=== PATIENT | female | born 1970 | race Caucasian/White ===

== ENCOUNTER 2018-11-06 08:33 | Emergency (ER) | payer BC ==
[~2018-11-06] VITALS: Ht 160 cm; Wt 98.0 kg
[~2018-11-06 08:33] MED LIST: AMIT25TA PO; ASPI-612 PO; ATOR20TA58 PO; BUTA1CAP31 PO; CYCL10TA2 PO; DIPH25CA58 PO; FAMO-63 PO; LEVO50TA5 PO; LEVO75TA5 PO; METO50TA6 PO; NAPR-514 PO; NAPR500T8 PO; ONDA4TAB10 SL; RANI-348 PO
--- NOTE | 2018-11-06 08:51 | PHYS DOC ---
Past Medical History Past Medical History: Gallstones, High Cholesterol, Hypertension, Migraines, Ovarian Cyst, TIA Past Surgical History: Cholecystectomy, Hysterectomy Additional Past Surgical Histo: right knee Alcohol Use: Occasionally Drug Use: None Adult General Chief Complaint Chief Complaint: NEURO SYMPTOMS/DEFICITS HPI HPI Patient is a 47 year old female who presents with complaining of dizziness and right hand heaviness. Patient states she bends over to strip picker an object from the floor while she was up work at 7:30 and felt dizziness that improved but she developed heaviness of right upper and lower extremity and not having right in right side of her face with headache. Patient rated her headache 6/10. Patient denies weakness, chest pain, shortness of breath, vomiting and diarrhea. Patient complaining of nausea and change of vision. Patient states she had history of TIA with weakness of one side of her body and currently taking 1 mg of aspirin daily. Patient also complaining of history of migraine headache but states her headache is not as bad as her usual migraine headache. Review of Systems Review of Systems Constitutional: Denies fever or chills [] Eyes: Denies change in visual acuity, redness, or eye pain [] HENT: Denies nasal congestion or sore throat [] Respiratory: Denies cough or shortness of breath [] Cardiovascular: No additional information not addressed in HPI [] GI: Denies abdominal pain, nausea, vomiting, bloody stools or diarrhea [] : Denies dysuria or hematuria [] Musculoskeletal: Denies back pain or joint pain [] Integument: Denies rash or skin lesions [] Neurologic: Reports headache and heaviness of right upper and lower extremity Endocrine: Denies polyuria or polydipsia [] All other systems were reviewed and found to be within normal limits, except as documented in this note. Current Medications Current Medications Current Medications Medications (Trade) Dose Ordered Sig/Albert Start Time Stop Time Status Last Admin Dose Admin Ketorolac Tromethamine (Toradol 30mg Vial) 30 mg 1X ONCE 11/06/18 09:15 11/06/18 09:16 DC 11/06/18 09:30 30 MG Ondansetron HCl (Zofran) 4 mg 1X ONCE 11/06/18 09:15 11/06/18 09:16 DC 11/06/18 09:30 4 MG Allergies Allergies Allergies Coded Allergies Type Severity Reaction Last Updated Verified acetaminophen Adverse Reaction Mild Nausea and Vomiting 11/06/18 Yes hydrocodone Adverse Reaction Mild Nausea and Vomiting 11/06/18 Yes meperidine Adverse Reaction Mild Anxiety 06/02/18 Yes Physical Exam Physical Exam Constitutional: Well developed, well nourished, no acute distress, non-toxic appearance. [] HENT: Normocephalic, atraumatic, bilateral external ears normal, oropharynx moist, no oral exudates, nose normal. [] Eyes: PERRLA, EOMI, conjunctiva normal, no discharge. [] Neck: Normal range of motion, no tenderness, supple, no stridor. [] Cardiovascular:Heart rate regular rhythm, no murmur [] Lungs & Thorax: Bilateral breath sounds clear to auscultation [] Abdomen: Bowel sounds normal, soft, no tenderness, no masses, no pulsatile masses. [] Skin: Warm, dry, no erythema, no rash. [] Back: No tenderness, no CVA tenderness. [] Extremities: No tenderness, no cyanosis, no clubbing, ROM intact, no edema. [] Neurologic: Alert and oriented X 3, normal motor function, subjective decrease of sensation in right upper and lower extremity , no focal deficits noted, NIHS scale of 1. [] Psychologic: Affect normal, judgement normal, mood normal. [] Current Patient Data Vital Signs Vital Signs Date Time Temp Pulse Resp B/P (MAP) Pulse Ox O2 Delivery O2 Flow Rate FiO2 11/06/18 09:07 98.0 56 18 186/79 (114) 99 Room Air 98.0 Lab Values Laboratory Tests Test 11/06/18 08:46 11/06/18 08:51 11/06/18 09:35 Glucose (Fingerstick) 95 mg/dL (70-99) White Blood Count 7.7 x10^3/uL (4.0-11.0) Red Blood Count 4.57 x10^6/uL (3.50-5.40) Hemoglobin 12.1 g/dL (12.0-15.5) Hematocrit 37.4 % (36.0-47.0) Mean Corpuscular Volume 82 fL (79-100) Mean Corpuscular Hemoglobin 27 pg (25-35) Mean Corpuscular Hemoglobin Concent 32 g/dL (31-37) Red Cell Distribution Width 14.2 % (11.5-14.5) Platelet Count 303 x10^3/uL (140-400) Neutrophils (%) (Auto) 57 % (31-73) Lymphocytes (%) (Auto) 33 % (24-48) Monocytes (%) (Auto) 6 % (0-9) Eosinophils (%) (Auto) 4 % (0-3) H Basophils (%) (Auto) 1 % (0-3) Neutrophils # (Auto) 4.4 x10^3uL (1.8-7.7) Lymphocytes # (Auto) 2.5 x10^3/uL (1.0-4.8) Monocytes # (Auto) 0.5 x10^3/uL (0.0-1.1) Eosinophils # (Auto) 0.3 x10^3/uL (0.0-0.7) Basophils # (Auto) 0.1 x10^3/uL (0.0-0.2) Prothrombin Time 12.4 SEC (11.7-14.0) Prothrombin Time INR 1.0 (0.8-1.1) Sodium Level 140 mmol/L (136-145) Potassium Level 3.8 mmol/L (3.5-5.1) Chloride Level 103 mmol/L (98-107) Carbon Dioxide Level 30 mmol/L (21-32) Anion Gap 7 (6-14) Blood Urea Nitrogen 10 mg/dL (7-20) Creatinine 0.9 mg/dL (0.6-1.0) Estimated GFR (Cockcroft-Gault) 67.4 BUN/Creatinine Ratio 11 (6-20) Glucose Level 103 mg/dL (70-99) H Calcium Level 9.6 mg/dL (8.5-10.1) Magnesium Level 1.8 mg/dL (1.8-2.4) Total Bilirubin 0.3 mg/dL (0.2-1.0) Aspartate Amino Transferase (AST) 21 U/L (15-37) Alanine Aminotransferase (ALT) 28 U/L (14-59) Alkaline Phosphatase 72 U/L (46-116) Creatine Kinase 191 U/L (26-192) Total Protein 7.8 g/dL (6.4-8.2) Albumin 3.7 g/dL (3.4-5.0) Albumin/Globulin Ratio 0.9 (1.0-1.7) L Urine Collection Type Unknown Urine Color Yellow Urine Clarity Clear Urine pH 5.5 Urine Specific [place] 1.020 Urine Protein Negative mg/dL (NEG-TRACE) Urine Glucose (UA) Negative mg/dL (NEG) Urine Ketones (Stick) Negative mg/dL (NEG) Urine Blood Small (NEG) Urine Nitrite Negative (NEG) Urine Bilirubin Negative (NEG) Urine Urobilinogen Dipstick 0.2 mg/dL (0.2 mg/dL) Urine Leukocyte Esterase Negative (NEG) Urine RBC 1-2 /HPF (0-2) Urine WBC 1-4 /HPF (0-4) Urine Squamous Epithelial Cells Mod /LPF Urine Bacteria Few /HPF (0-FEW) Urine Mucus Slight /LPF Laboratory Tests 11/06/18 08:51 Laboratory Tests 11/06/18 08:51 EKG EKG EKG interpreted by me. EKG at 0846 showed normal sinus bradycardia at rate of 58, poor R-wave progress in anterior leads, no acute ST and T-wave abnormalities. Radiology/Procedures Radiology/Procedures [][address] [address] IMAGING REPORT Signed PATIENT: LUIS BOSS ACCOUNT: [id number] : 1970 LOCATION: ER AGE: 47 SEX: F EXAM STATUS: REG ER ORD. PHYSICIAN: BETH MOTA MD REASON: right sided heaviness, WEAKNESS, CONFUSION PROCEDURE: PORTABLE CHEST 1V PORTABLE CHEST 1V History: Right-sided heaviness, weakness, confusion Comparison: None. Findings: Single view of the chest is submitted. There is no infiltrate, pneumothorax, or effusion. The pericardial cardiac silhouette is within normal limits in size. Impression: 1. There is no radiographic evidence of acute cardiopulmonary disease. Electronically signed by: Tyrone Cohn MD (11/06/2018 9:03 AM) [email or web address] DICTATED and SIGNED BY: TYRONE COHN MD DATE: 11/06/[address] [address] IMAGING REPORT Signed PATIENT: LUIS BOSS ACCOUNT: [id number] : 1970 LOCATION: ER AGE: 47 SEX: F EXAM STATUS: REG ER ORD. PHYSICIAN: BETH MOTA MD REASON: right-sided heaviness PROCEDURE: CT CODE STROKE HEAD WO CT CODE STROKE HEAD WO History: Right-sided heaviness Comparison: None. Technique: Noncontrast CT imaging was performed of the head. Exposure: One or more of the following individualized dose reduction techniques were utilized for this examination: 1. Automated exposure control 2. Adjustment of the mA and/or kV according to patient size 3. Use of iterative reconstruction technique. Findings: No acute extra-axial or parenchymal hemorrhage is identified. There is no significant intra-axial mass effect, midline shift, or extra-axial fluid collection. The corral-white differentiation of the major vascular territories is preserved. The ventricles, sulci, and cisterns are within normal limits in size and configuration. The mastoid air cells and the visualized paranasal sinuses are aerated. No acute calvarial abnormality is identified. Impression: 1. No acute intracranial abnormality is identified. FOR INTERNAL CODING PURPOSES Critical result: Findings discussed with BETH MOTA at 11/06/2018 9:08 AM. RESULT CODE: (C) Electronically signed by: Tyrone Cohn MD (11/06/2018 9:10 AM) [email or web address] DICTATED and SIGNED BY: TYRONE COHN MD DATE: 11/06/18909 Course & Med Decision Making Course & Med Decision Making Pertinent Labs and Imaging studies reviewed. (See chart for details) Evaluation of patient also 47-year-old female patient with history of migraine headache and TIA presented to ER with complaining of right-sided heaviness. Patient had indigestion of 1 because of subjective paresthesia. Patient started with Toradol and Zofran with improvement of nausea and headache. Patient states her right side tenderness was getting better while she was in ER but did not completely resolve. CT head and labs was unremarkable. Plan discharge patient home to diagnose of TIA and instruction to continue taking daily aspirin and follow up with her neurologist Dr. Dwyer. Dragon Disclaimer Dragon Disclaimer This electronic medical record was generated, in whole or in part, using a voice recognition dictation system. Departure Departure Impression: Primary Impression: TIA (transient ischemic attack) Additional Impression: Headache Disposition: HOME, SELF-CARE (1006) Condition: IMPROVED Referrals: HEIDY LAMA (PCP) AVERY MOTA MD Patient Instructions: General Headache Without Cause, Transient Ischemic Attack Additional Instructions: Drink plenty of liquids Follow-up with your primary care physician in 3-5 days Return to ER if not getting better Follow up with your neurologist in one or 2 days NIHSS Stroke Scale NIH Stroke Scale: NIH Stroke Scale Response (Comments) Value Level of Consciousness: 0 Alert/Responsive 0 LOC Questions: 0 Answers both correctly 0 LOC Commands: 0 Performs both tasks 0 Best Gaze: 0 Normal 0 Visual: 0 No visual loss 0 Facial Palsy: 0 Normal, symmetrical 0 Motor - Left Arm 0 No drift 0 Motor - Right Arm 0 No drift 0 Motor - Left Leg 0 No drift 0 Motor: Right Leg 0 No drift 0 Limb Ataxia: 0 Absent 0 Sensory: 1 Mid to moderate loss 1 Best Language: 0 Normal 0 Dysathria: 0 Normal 0 Extinction and Inattention: 0 Normal 0 Total 1 Problem Qualifiers Additional Impression: Headache Headache type: unspecified Headache chronicity pattern: unspecified pattern Intractability: not intractable Qualified Codes: R51 - Headache BETH MOTA MD November 06, 2018 08:51
[2018-11-06 09:03] LABS: BASO # 0.1 x10^3/uL (0.0-0.2); BASO % 1 % (0-3); EOS # 0.3 x10^3/uL (0.0-0.7); EOS % 4 % (0-3); HEMATOCRIT 37.4 % (36.0-47.0); HEMOGLOBIN 12.1 g/dL (12.0-15.5); LYMPH # 2.5 x10^3/uL (1.0-4.8); LYMPH % 33 % (24-48); MEAN CORPUSCULAR HEMOGLOBIN 27 pg (25-35); MEAN CORPUSCULAR HGB CONC 32 g/dL (31-37); MEAN CORPUSCULAR VOLUME 82 fL (79-100); MONO # 0.5 x10^3/uL (0.0-1.1); MONO % 6 % (0-9); NEUT # 4.4 x10^3uL (1.8-7.7); NEUT % 57 % (31-73); PLATELET COUNT 303 x10^3/uL (140-400); RED BLOOD COUNT 4.57 x10^6/uL (3.50-5.40); RED CELL DISTRIBUTION WIDTH 14.2 % (11.5-14.5); WHITE BLOOD COUNT 7.7 x10^3/uL (4.0-11.0)
--- NOTE | 2018-11-06 09:06 | RAD ---
PORTABLE CHEST 1V History: Right-sided heaviness, weakness, confusion Comparison: None. Findings: Single view of the chest is submitted. There is no infiltrate, pneumothorax, or effusion. The pericardial cardiac silhouette is within normal limits in size. Impression: 1. There is no radiographic evidence of acute cardiopulmonary disease. Electronically signed by: Elpidio Cohn MD (11/06/2018 9:03 AM) [email or web address]
[2018-11-06 09:09] LABS: CALCIUM 9.6 mg/dL (8.5-10.1); CREATININE 0.9 mg/dL (0.6-1.0); GFR 67.4; POTASSIUM 3.8 mmol/L (3.5-5.1)
[2018-11-06 09:11] LABS: PROTHROMBIN TIME PATIENT 12.4 SEC (11.7-14.0)
--- NOTE | 2018-11-06 09:12 | RAD ---
CT CODE STROKE HEAD WO History: Right-sided heaviness Comparison: None. Technique: Noncontrast CT imaging was performed of the head. Exposure: One or more of the following individualized dose reduction techniques were utilized for this examination: 1. Automated exposure control 2. Adjustment of the mA and/or kV according to patient size 3. Use of iterative reconstruction technique. Findings: No acute extra-axial or parenchymal hemorrhage is identified. There is no significant intra-axial mass effect, midline shift, or extra-axial fluid collection. The corral-white differentiation of the major vascular territories is preserved. The ventricles, sulci, and cisterns are within normal limits in size and configuration. The mastoid air cells and the visualized paranasal sinuses are aerated. No acute calvarial abnormality is identified. Impression: 1. No acute intracranial abnormality is identified. FOR INTERNAL CODING PURPOSES Critical result: Findings discussed with BETH MOTA at 11/06/2018 9:08 AM. RESULT CODE: (C) Electronically signed by: Elpidio Cohn MD (11/06/2018 9:10 AM) [email or web address]
[2018-11-06 09:15] LABS: ALBUMIN 3.7 g/dL (3.4-5.0); ALBUMIN/GLOBULIN RATIO 0.9 (1.0-1.7); MAGNESIUM 1.8 mg/dL (1.8-2.4); TOTAL BILIRUBIN 0.3 mg/dL (0.2-1.0); TOTAL PROTEIN 7.8 g/dL (6.4-8.2)
[2018-11-06] MEDS ORDERED: KETOROLAC 30 MG/ML VIAL. IV ONE (09:15)
[2018-11-06] MEDS ORDERED: ONDANSETRON PF 4 MG/2 ML VIAL. IV ONE (09:15)
[2018-11-06 09:55] LABS: BILIRUBIN,URINE NEGATIVE (NEG); CLARITY,URINE CLEAR; COLOR,URINE YELLOW; NITRITE,URINE NEGATIVE (NEG); PH,URINE 5.5; PROTEIN,URINE NEGATIVE (NEG-TRACE); UROBILINOGEN,URINE 0.2 mg/dL (0.2 mg/dL)
[2018-11-06 10:10] LABS: BACTERIA,URINE FEW /HPF (0-FEW); SQUAMOUS EPITHELIAL CELL,UR MOD /LPF
[2018-11-06 10:30] VITALS: BP 126/72
--- NOTE | 2018-11-06 13:22 | EKG ---
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
== END 2018-11-06 10:32 | disposition home or self-care (01) ==
LOC: ER 08:33
DX: G45.9 Transient cerebral ischemic attack, unspecified (principal); E78.00 Pure hypercholesterolemia, unspecified; I10 Essential (primary) hypertension; G43.909 Migraine, unspecified, not intractable, without status migrainosus; Z86.73 Personal history of transient ischemic attack (TIA), and cerebral infarction without residual deficits; Z88.5 Allergy status to narcotic agent; Z88.6 Allergy status to analgesic agent; Z88.8 Allergy status to other drugs, medicaments and biological substances
CPT/HCPCS: 36415; 70450; 71045; 80053; 81001; 82550; 82962; 83735; 85025; 85610; 93005; 96374; 96375; 99285; J1885; J2405

== ENCOUNTER 2020-02-26 23:42 | Emergency (ER) | payer BC ==
[~2020-02-26 23:42] MED LIST changes: -ASPI-612 PO; +ASPI-886 PO; -RANI-348 PO; +RANI-369 PO
== END 2020-02-27 04:00 | disposition left against medical advice (07) ==
LOC: ER 23:42
DX: G43.909 Migraine, unspecified, not intractable, without status migrainosus (principal); Z53.21 Procedure and treatment not carried out due to patient leaving prior to being seen by health care provider

== ENCOUNTER 2020-03-17 17:56 | Emergency (ER) | payer BC ==
[~2020-03-17] VITALS: Ht 160 cm; Wt 105.2 kg
[2020-03-17] MEDS ORDERED: cefTRIAXone IV Push 1 GM VIAL. IVP ONE (20:15)
[2020-03-17] MEDS ORDERED: methylPREDNISolone SOD SUCC PF 125 MG/2 ML VIAL. IV ONE (20:15)
[2020-03-17] MEDS ORDERED: [UNRECOGNIZED DRUG - OTHER] IV ONE (20:15)
[2020-03-17] MEDS ORDERED: AZITHROMYCIN IV ONE (20:15)
[2020-03-17 20:37] LABS: BASO % 0 % (0-3); EOS % 0 % (0-3); HEMOGLOBIN 12.6 g/dL (12.0-15.5); LYMPH # 1.4 x10^3/uL (1.0-4.8); LYMPH % 19 % (24-48); MEAN CORPUSCULAR HEMOGLOBIN 27 pg (25-35); MEAN CORPUSCULAR HGB CONC 33 g/dL (31-37); MEAN CORPUSCULAR VOLUME 82 fL (79-100); MONO # 0.5 x10^3/uL (0.0-1.1); MONO % 7 % (0-9); NEUT # 5.5 x10^3/uL (1.8-7.7); NEUT % 74 % (31-73); PLATELET COUNT 212 x10^3/uL (140-400); RED BLOOD COUNT 4.66 x10^6/uL (3.50-5.40); RED CELL DISTRIBUTION WIDTH 14.8 % (11.5-14.5); WHITE BLOOD COUNT 7.4 x10^3/uL (4.0-11.0)
[2020-03-17] MEDS ORDERED: AZITHRMYCN 500MG IVPB FOR OMNI 250 ML IV ONE (20:45)
[2020-03-17 20:46] LABS: PROTHROMBIN TIME PATIENT 12.8 SEC (11.7-14.0)
[2020-03-17 20:49] LABS: CALCIUM 8.7 mg/dL (8.5-10.1); CREATININE 0.7 mg/dL (0.6-1.0); GFR 89.3; POTASSIUM 3.7 mmol/L (3.5-5.1)
[2020-03-17 20:54] LABS: ALBUMIN 3.3 g/dL (3.4-5.0); ALBUMIN/GLOBULIN RATIO 0.6 (1.0-1.7); MAGNESIUM 2.3 mg/dL (1.8-2.4); TOTAL BILIRUBIN 0.6 mg/dL (0.2-1.0); TOTAL PROTEIN 8.4 g/dL (6.4-8.2)
[2020-03-17 21:04] LABS: CREATINE KINASE 56 U/L (26-192)
[2020-03-17] MEDS: MORPHINE SULFATE 4 MG/ML VIAL. IV/SQ PRN ×3 (21:11→23:07)
--- NOTE | 2020-03-17 21:21 | RAD ---
PORTABLE CHEST 1V Clinical Indication: Reason: cough / Spl. Instructions: / History: Comparison: AP chest, November 06, 2018. Findings: The cardiomediastinal silhouette is normal. There are bilateral perihilar airspace opacities. There is no pneumothorax. No pleural effusion is appreciated. No acute bone abnormality. IMPRESSION: Bilateral perihilar airspace opacities may be infectious/inflammatory. Electronically signed by: Eyal Lanier MD (03/17/2020 9:18 PM) [facility]
[2020-03-17 21:58] LABS: BILIRUBIN,URINE NEGATIVE (NEG); CLARITY,URINE CLEAR; COLOR,URINE YELLOW; NITRITE,URINE NEGATIVE (NEG); PH,URINE 6.5 (<5.0-8.0); PROTEIN,URINE NEGATIVE (NEG-TRACE); UROBILINOGEN,URINE 0.2 mg/dL (0.2 mg/dL)
[2020-03-17] MEDS ORDERED: guaiFENesin/CODEINE 100mg/10mg 5 ML LIQUID PO ONE (22:00)
[2020-03-17 22:06] LABS: AMPHETAMINE/METHAMPHETAMINE NEG (NEG); BARBITURATES NEG (NEG); BENZODIAZEPINES NEG (NEG); CANNABINOIDS NEG (NEG); COCAINE NEG (NEG); METHADONE NEG (NEG); OPIATES NEG (NEG); PHENCYCLIDINE NEG (NEG)
--- NOTE | 2020-03-17 22:06 | PHYS DOC ---
Past Medical History Past Medical History: Gallstones, High Cholesterol, Hypertension, Migraines, Ovarian Cyst, TIA Past Surgical History: Cholecystectomy, , Hysterectomy Additional Past Surgical Histo: right knee, OOPHORECTOMY Smoking Status: Never Smoker Alcohol Use: Occasionally Drug Use: None General Adult EDM: Chief Complaint: SHORTNESS OF BREATH HPI: HPI: Patient is a 49 year old female with a history of high cholesterol, hypertension, who presents to the ED today to be evaluated for cough and shortness of breath. Patient was diagnosed with COVID19 on Tuesday last week. Has had COVID19 symptoms including cough, chest pain, shortness of breath, since last week. She states she had a fever too. Review of Systems: Review of Systems: Constitutional: Reports fever Eyes: Denies change in visual acuity. [] HENT: Denies nasal congestion or sore throat. [] Respiratory: Reports cough and shortness of breath. [] Cardiovascular: Reports chest pain GI: Denies abdominal pain, nausea, vomiting, bloody stools or diarrhea. [] : Denies dysuria. [] Musculoskeletal: Denies back pain or joint pain. [] Integument: Denies rash. [] Neurologic: Denies headache, focal weakness or sensory changes. [] Psychiatric: Denies depression or anxiety. [] Heart Score: HEART Score for Chest Pain: HEART Score for Chest Pain Response (Comments) Value History Slighlty/Non-Suspicious 0 ECG Normal 0 Age >45 - < 65 1 Risk Factors 1 or 2 Risk Factors 1 Troponin < Normal Limit 0 Total 2 Risk Factors: Risk Factors: DM, Current or recent (<one month) smoker, HTN, HLP, family history of CAD, obesity. Risk Scores: Score 0 - 3: 2.5% MACE over next 6 weeks - Discharge Home Score 4 - 6: 20.3% MACE over next 6 weeks - Admit for Clinical Observation Score 7 - 10: 72.7% MACE over next 6 weeks - Early Invasive Strategies Current Medications: Current Medications Medications (Trade) Dose Ordered Sig/Albert Start Time Stop Time Status Last Admin Dose Admin Azithromycin 250 ml @ 250 mls/hr 1X ONCE 03/17/20 20:45 03/17/20 21:44 DC 03/17/20 21:31 250 MLS/HR Azithromycin 500 mg/Azithromycin 250 ml @ 250 mls/hr 1X ONCE 03/17/20 20:15 03/17/20 21:14 Cancel Ceftriaxone Sodium (Rocephin) 1 gm 1X ONCE 03/17/20 20:15 03/17/20 20:32 DC 03/17/20 21:30 1 GM Guaifenesin/ Codeine Phosphate (Robitussin Ac) 5 ml 1X ONCE 03/17/20 22:00 03/17/20 22:01 DC Methylprednisolone Sodium Succinate (SOLU-Medrol 125MG VIAL) 125 mg 1X ONCE 03/17/20 20:15 03/17/20 20:32 DC 03/17/20 21:11 125 MG Morphine Sulfate (Morphine Sulfate) 4 mg PRN Q15MIN PRN 03/17/20 20:15 03/18/20 20:14 03/17/20 21:55 4 MG Allergies: Allergies: Allergies Coded Allergies Type Severity Reaction Last Updated Verified acetaminophen Adverse Reaction Mild Nausea and Vomiting 11/06/18 Yes hydrocodone Adverse Reaction Mild Nausea and Vomiting 11/06/18 Yes meperidine Adverse Reaction Mild Anxiety 06/02/18 Yes Physical Exam: PE: Constitutional: Well developed, well nourished, no acute distress, non-toxic appearance. [] HENT: Normocephalic, atraumatic, bilateral external ears normal, oropharynx moist, no oral exudates, nose normal. [] Eyes: PERRLA, EOMI, conjunctiva normal, no discharge. [] Neck: Normal range of motion, no tenderness, supple, no stridor. [] Cardiovascular:Heart rate regular rhythm, no murmur [] Lungs & Thorax: Bilateral breath sounds clear to auscultation [] Abdomen: Bowel sounds normal, soft, no tenderness, no masses, no pulsatile mass es. [] Skin: Warm, dry, no erythema, no rash. [] Back: No tenderness, no CVA tenderness. [] Extremities: No tenderness, no cyanosis, no clubbing, ROM intact, no edema. [] Neurologic: Alert and oriented X 3, normal motor function, normal sensory function, no focal deficits noted. [] Psychologic: Affect normal, judgement normal, mood normal. [] Current Patient Data: Labs: Laboratory Tests Test 03/17/20 20:15 White Blood Count 7.4 x10^3/uL (4.0-11.0) Red Blood Count 4.66 x10^6/uL (3.50-5.40) Hemoglobin 12.6 g/dL (12.0-15.5) Hematocrit 38.0 % (36.0-47.0) Mean Corpuscular Volume 82 fL (79-100) Mean Corpuscular Hemoglobin 27 pg (25-35) Mean Corpuscular Hemoglobin Concent 33 g/dL (31-37) Red Cell Distribution Width 14.8 % (11.5-14.5) H Platelet Count 212 x10^3/uL (140-400) Neutrophils (%) (Auto) 74 % (31-73) H Lymphocytes (%) (Auto) 19 % (24-48) L Monocytes (%) (Auto) 7 % (0-9) Eosinophils (%) (Auto) 0 % (0-3) Basophils (%) (Auto) 0 % (0-3) Neutrophils # (Auto) 5.5 x10^3/uL (1.8-7.7) Lymphocytes # (Auto) 1.4 x10^3/uL (1.0-4.8) Monocytes # (Auto) 0.5 x10^3/uL (0.0-1.1) Eosinophils # (Auto) 0.0 x10^3/uL (0.0-0.7) Basophils # (Auto) 0.0 x10^3/uL (0.0-0.2) Prothrombin Time 12.8 SEC (11.7-14.0) Prothrombin Time INR 1.0 (0.8-1.1) Activated Partial Thromboplast Time 31 SEC (24-38) Sodium Level 139 mmol/L (136-145) Potassium Level 3.7 mmol/L (3.5-5.1) Chloride Level 100 mmol/L (98-107) Carbon Dioxide Level 29 mmol/L (21-32) Anion Gap 10 (6-14) Blood Urea Nitrogen 8 mg/dL (7-20) Creatinine 0.7 mg/dL (0.6-1.0) Estimated GFR (Cockcroft-Gault) 89.3 BUN/Creatinine Ratio 11 (6-20) Glucose Level 93 mg/dL (70-99) Lactic Acid Level 1.2 mmol/L (0.4-2.0) Calcium Level 8.7 mg/dL (8.5-10.1) Magnesium Level 2.3 mg/dL (1.8-2.4) Total Bilirubin 0.6 mg/dL (0.2-1.0) Aspartate Amino Transferase (AST) 30 U/L (15-37) Alanine Aminotransferase (ALT) 31 U/L (14-59) Alkaline Phosphatase 67 U/L (46-116) Creatine Kinase 56 U/L (26-192) Creatine Kinase MB (Mass) < 0.5 ng/mL (0.0-3.6) Creatine Kinase MB Relative Index % (0-4) Troponin I Quantitative < 0.017 ng/mL (0.000-0.055) DQ-Oib-E-Type Natriuretic Peptide 16 pg/mL (0-124) Total Protein 8.4 g/dL (6.4-8.2) H Albumin 3.3 g/dL (3.4-5.0) L Albumin/Globulin Ratio 0.6 (1.0-1.7) L Procalcitonin < 0.10 ng/mL (0.00-0.10) Thyroid Stimulating Hormone (TSH) 4.079 uIU/mL (0.358-3.74) H Laboratory Tests 03/17/20 20:15 Laboratory Tests 03/17/20 20:15 Vital Signs: Vital Signs Date Time Temp Pulse Resp B/P (MAP) Pulse Ox O2 Delivery O2 Flow Rate FiO2 03/17/20 21:55 20 EKG: EK interpreted by Dr. Jose sinus rhythm HT 100 no STEMI[] Radiology/Procedures: Radiology/Procedures: []PROCEDURE: PORTABLE CHEST 1V PORTABLE CHEST 1V Clinical Indication: Reason: cough / Spl. Instructions: / History: Comparison: AP chest, November 06, 2018. Findings: The cardiomediastinal silhouette is normal. There are bilateral perihilar airspace opacities. There is no pneumothorax. No pleural effusion is appreciated. No acute bone abnormality. IMPRESSION: Bilateral perihilar airspace opacities may be infectious/inflammatory. Electronically signed by: Eyal Lanier MD (03/17/2020 9:18 PM) [facility] DICTATED and SIGNED BY: EYAL LANIER MD DATE: 03/17/202117 Course & Med Decision Making: Course & Med Decision Making Pertinent Labs and Imaging studies reviewed. (See chart for details) This is a 49-year-old female patient who presents to the ED today to be evaluated for cough, shortness of breath, fever, and chest pain on deep breaths was diagnosed with COVID19 on Tuesday last week. CBC with a normal WBC, CMP with no acute findings. Vitals on arrival to the ED temperature 100.5, HR 109 respirations 20 on RA,O2 sats 91 to 94% on room air. Chest x-ray noted for bilateral perihilar airspace opacities may be infectious/inflammatory. Patient was given Rocephin and azithromycin in the ED. Given Tylenol for the fever. She is stable for home discharge. She was provided return precautions and discharged in stable condition. Dragon Disclaimer: Dragon Disclaimer: This electronic medical record was generated, in whole or in part, using a voice recognition dictation system. Departure Departure Impression: Primary Impression: COVID-19 Additional Impressions: Fever Qualified Codes: R50.9 - Fever, unspecified Cough Pneumonia of both lower lobes Qualified Codes: J18.9 - Pneumonia, unspecified organism Disposition: HOME, SELF-CARE Condition: STABLE Referrals: Miguel Ángel FOUNTAIN MD (PCP) follow up next week with your doctor Patient Instructions: Cough, Adult, Ssel-jx-Eorb, Fever, Adult, Pneumonia, Adult Additional Instructions: You have COVID19 with pneumonia. Take the prescribed medications as ordered. Please follow-up with your doctor in the course of this week. Push fluids, maintain good and hygiene. Come back to the ED at any point symptoms worsen. Scripts Ascorbic Acid (VITAMIN C) 500 Mg Capsule.er 1 CAP PO DAILY for 10 Days, #10 CAP 0 Refills Prov: ALKA LUU [facility] 03/17/20 Cholecalciferol (Vitamin D3) (Vitamin D3) 100 Mcg Capsule 100 MCG PO DAILY, #10 CAP Prov: MUTUNGAALKA [facility] 03/17/20 Zinc (ZINC) 50 Mg Tablet 1 TAB PO DAILY for 10 Days, #10 TAB 0 Refills Prov: MUTCHARLOTTEAALKA [facility] 03/17/20 Prednisone (PREDNISONE) 50 Mg Tablet 1 TAB PO DAILY, #5 TAB Prov: MUTALKA AIKEN [facility] 03/17/20 Azithromycin (ZITHROMAX) 250 Mg Tablet 1 PKG PO UD, #1 PKG Prov: MUTUNGA,ALKA [facility] 03/17/20 Promethazine/Phenyleph/Codeine (Qiowruwfzpgq-JZ-Hroiqoo Syrup) 118 Ml Syrup 5 ML PO Q6-8HRS PRN for COUGH, #100 MISC Prov: ALKA LUU APRN 03/17/20 Justicifation of Admission Dx: Justifications for Admission: Justification of Admission Dx: N/A ALKA LUU APRN Mar 17, 2020 22:06
[2020-03-17] MEDS ORDERED: ONDANSETRON PF 4 MG/2 ML VIAL. IVP ONE (22:15)
[2020-03-17 22:16] LABS: BACTERIA,URINE FEW /HPF (0-FEW); SQUAMOUS EPITHELIAL CELL,UR FEW /LPF
[2020-03-17] MEDS ORDERED: PROM118S6 PO (22:31)
[2020-03-17] MEDS ORDERED: ASCO500C PO (22:31)
[2020-03-17] MEDS ORDERED: AZIT250T PO (22:31)
[2020-03-17] MEDS ORDERED: PRED50TA PO (22:31)
[2020-03-17] MEDS ORDERED: ZINC50TA39 PO (22:31)
[2020-03-17] MEDS ORDERED: CHOL40003 PO (22:31)
[2020-03-17] MEDS: ACETAMINOPHEN 500 MG TABLET PO ONE ×2 (23:07→23:33)
[2020-03-17 23:30] VITALS: BP 129/66
--- NOTE | 2020-03-18 04:18 | EKG ---
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
== END 2020-03-17 23:42 | disposition home or self-care (01) ==
LOC: ER 17:56
DX: U07.1 COVID-19 (principal); J18.9 Pneumonia, unspecified organism; E78.00 Pure hypercholesterolemia, unspecified; I10 Essential (primary) hypertension; G43.909 Migraine, unspecified, not intractable, without status migrainosus; Z86.73 Personal history of transient ischemic attack (TIA), and cerebral infarction without residual deficits; Z88.1 Allergy status to other antibiotic agents; Z88.5 Allergy status to narcotic agent; Z88.6 Allergy status to analgesic agent
CPT/HCPCS: 36415; 71045; 80053; 80307; 81001; 82553; 83605; 83735; 83880; 84145; 84443; 84484; 85025; 85610; 85730; 87040; 93005; 96365; 96375; 96376; 99285; J0456; J0696; J2270; J2405; J2930

== ENCOUNTER 2020-06-09 12:52 | Emergency (ER) | payer BC ==
[~2020-06-09] VITALS: Ht 160 cm; Wt 103.0 kg
[~2020-06-09 12:52] MED LIST changes: +ASCO500C PO; +AZIT250T PO; +CHOL40003 PO; +PRED50TA PO; +PROM118S6 PO; +ZINC50TA39 PO
[2020-06-09 14:51] LABS: AMPHETAMINE/METHAMPHETAMINE NEG (NEG); BARBITURATES NEG (NEG); BENZODIAZEPINES NEG (NEG); CANNABINOIDS NEG (NEG); COCAINE NEG (NEG); METHADONE NEG (NEG); OPIATES NEG (NEG); PHENCYCLIDINE NEG (NEG)
--- NOTE | 2020-06-09 14:51 | EKG ---
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
--- NOTE | 2020-06-09 15:03 | RAD ---
Single view chest dated 06/09/2020 Comparison made to 03/17/2020 Clinical Indication: Shortness of breath. Findings: Single upright portable exam of the chest was performed. Heart size and mediastinal contours are with in normal limits given technique. The lungs are clear without evidence of focal consolidation. Vascul ar interstitium is within normal limits. Impression:: Negative portable chest. Electronically signed by: Chao Fox MD (06/09/2020 3:01 PM) [id number]
--- NOTE | 2020-06-09 15:14 | PHYS DOC ---
Past Medical History Past Medical History: Gallstones, High Cholesterol, Hypertension, Migraines, Ovarian Cyst, TIA Past Surgical History: Cholecystectomy, , Hysterectomy Additional Past Surgical Histo: right knee, OOPHORECTOMY Smoking Status: Never Smoker Alcohol Use: Occasionally Drug Use: None General Adult EDM: Chief Complaint: SHORTNESS OF BREATH HPI: HPI: 49-year-old female past medical history significant for TIA on aspirin, hypothyroidism, hypertension hyperlipidemia, presents the ED with complaints of " I can feel my heart beating on the way from my store to my throat," intermittently since February. Patient reports symptoms last for less than 10 seconds and occur approximately twice a week. Does report some associated (very brief, 1-2 seconds) shortness of breath and sharp nonradiating chest pain. Patient is not a tobacco smoker. No history of cocaine abuse. No history of cancer or pulmonary embolus. No risk factors for blood clots other than she was positive for Covid in February of this year. Patient is concerned because the palpitations are occurring more frequently than they used to. No history of syncope. No family history of connective tissue disorder, son, under the age of 50 or aortic disease. Called her primary care physician Dr. Robles who sent her to the ER today. Review of Systems: Review of Systems: Constitutional: Denies fever or chills. [] Eyes: Denies change in visual acuity. [] HENT: Denies nasal congestion or sore throat. [] Respiratory: Denies cough or hemoptysis Cardiovascular: Denies syncope or edema. [] GI: Denies abdominal pain, nausea, vomiting, bloody stools or diarrhea. [] : Denies dysuria. [] Musculoskeletal: Denies back pain or joint pain or lower extremity edema Integument: Denies rash. [] Neurologic: Denies headache, focal weakness or sensory changes. [] Endocrine: Denies polyuria or polydipsia. [] Lymphatic: Denies swollen glands. [] Psychiatric: Denies depression or anxiety. [] Heart Score: HEART Score for Chest Pain: HEART Score for Chest Pain Response (Comments) Value History Slighlty/Non-Suspicious 0 ECG Normal 0 Age >45 - < 65 1 Risk Factors 1 or 2 Risk Factors 1 Troponin < Normal Limit 0 Total 2 Risk Factors: Risk Factors: DM, Current or recent (<one month) smoker, HTN, HLP, family h istory of CAD, obesity. Risk Scores: Score 0 - 3: 2.5% MACE over next 6 weeks - Discharge Home Score 4 - 6: 20.3% MACE over next 6 weeks - Admit for Clinical Observation Score 7 - 10: 72.7% MACE over next 6 weeks - Early Invasive Strategies Allergies: Allergies: Allergies Coded Allergies Type Severity Reaction Last Updated Verified acetaminophen Adverse Reaction Mild Nausea and Vomiting 11/06/18 Yes hydrocodone Adverse Reaction Mild Nausea and Vomiting 11/06/18 Yes meperidine Adverse Reaction Mild Anxiety 06/02/18 Yes Physical Exam: PE: Constitutional: Well developed, well nourished, no acute distress, non-toxic appearance. HENT: Normocephalic, atraumatic, Eyes: EOMI, conjunctiva normal, no discharge. Neck: Normal range of motion, supple, Cardiovascular: S1/2 present, regular rhythm, no tachycardia Lungs & Thorax: Speaking in full sentences, bilateral equal chest rise, no tach ypnea or increased work of breathing, 99-100% on room air during exam Abdomen: soft, no tenderness, Skin: Warm, dry, no erythema, no rash. [] Extremities: No tenderness, no cyanosis, no lower extremity edema Neurologic: Alert and oriented X 3, normal motor function, normal sensory function, no focal deficits noted. [] Psychologic: Affect normal, judgement normal, mood normal. [] Current Patient Data: Labs: Laboratory Tests Test 06/09/20 13:59 Urine Opiates Screen Neg (NEG) Urine Methadone Screen Neg (NEG) Urine Barbiturates Neg (NEG) Urine Phencyclidine Screen Neg (NEG) Urine Amphetamine/Methamphetamine Neg (NEG) Urine Benzodiazepines Screen Neg (NEG) Urine Cocaine Screen Neg (NEG) Urine Cannabinoids Screen Neg (NEG) Urine Ethyl Alcohol Neg (NEG) EKG: EKG: Sinus rhythm at 63 bpm, no axis deviation, normal intervals, no T wave inversions, no ST elevations or ST depressions Radiology/Procedures: Radiology/Procedures: IMAGING REPORT Signed PATIENT: LUIS BOSS LACCOUNT: [id number] : 1970 LOCATION: ER AGE: 49 SEX: F EXAM STATUS: REG ER ORD. PHYSICIAN: GUSTAVO MANJARREZ DO REASON: soa PROCEDURE: PORTABLE CHEST 1V Single view chest dated 06/09/2020 Comparison made to 03/17/2020 Clinical Indication: Shortness of breath. Findings: Single upright portable exam of the chest was performed. Heart size and mediastinal contours are within normal limits given technique. The lungs are clear without evidence of focal consolidation. Vascular interstitium is within normal limits. Impression:: Negative portable chest. Electronically signed by: Chao Fox MD (06/09/2020 3:01 PM) [id number] DICTATED and SIGNED BY: CHAO FOX MD DATE: 06/09/20 [id number] 0 Course & Med Decision Making: Course & Med Decision Making Pertinent Labs and Imaging studies reviewed. (See chart for details) Concern for intermittent palpitations, asymptomatic in ED. Labs including troponin and D-dimer are unremarkable. Blood pressure in normal limits. EKG unremarkable. Chest x-ray with no consolidation. Will discharge home with strict ED return precautions were given for syncope, chest pressure or sharp tearing or ripping pain, difficulties breathing, severe chest or back pain, hemoptysis or leg swelling. Encouraged urgent outpatient follow-up with PMD and cardiology for Holter monitoring. Life-threatening processes were considered but are low suspicion at this time, given history, physical exam and ED workup. Pt was educated on all prescription medications and adverse effects. All patient's questions were answered and pt was stable at time of discharge. Life/limb-threatening differential includes but is not limited to, acute myocardial infarction, aortic dissection, congestive heart failure, esophageal injury including rupture, surgical abdomen, arrhythmia, cardiomyopathy, myocarditis, pericarditis, peptic ulcer disease, pneumomediastinum, pneumonia, pneumothorax, pulmonary embolus, unstable angina, rib fracture, contusion, pericardial tamponade or effusion, pulmonary contusion I spoken with the patient and her caregivers. I explained the patient's condition, diagnoses and treatment plan based on the information available to me at this time. I have answered the patient and her caregiver's questions and addressed any concerns. The patient and her caregivers have a good understanding of patient's diagnosis, condition and treatment plan as can be expected at this point. Vital signs have been stable. Patient's condition is stable and appropriate for discharge from the emergency department. Patient will pursue further outpatient evaluation with primary care physician or other designated or consulting physician as outlined in the discharge instructions. The patient and/or caregivers are agreeable to this plan of care and follow-up instructions have been explained in detail. The patient and/or caregivers have received these instructions in written form and have expressed an understanding of the discharge instructions. The patient and/or caregivers are aware that any significant change of condition or worsening of symptoms should prompt immediate return to this or the closest emergency department or call to [phone]. Lilian Disclaimer: Dragmaría elena Disclaimer: This electronic medical record was generated, in whole or in part, using a voice recognition dictation system. Departure Departure Impression: Primary Impression: Palpitations with regular cardiac rhythm Additional Impression: Intermittent palpitations Disposition: 01 DC HOME SELF CARE/HOMELESS Condition: STABLE Referrals: Miguel Ángel ROBLES MD (PCP) In 1 to 2 weeks Patient Instructions: Palpitations Additional Instructions: FOLLOW UP WITH CARDIOLOGY: [facility] Address: [address] [place] [id number] EMERGENCY DEPARTMENT GENERAL DISCHARGE INSTRUCTIONS Thank you for coming to [facility] Emergency Department (ED) today and trusting us with you care. We trust that you had a positive experience in our Emergency Department. If you wish to speak to the department management, you may call the Director at [phone]. YOUR FOLLOW UP INSTRUCTIONS ARE FOLLOWS: 1. Do you have a private Doctor? If you do not have a private doctor, please ask for a resource list of physicians or clinics that may be able to assist you with follow up care. 2. The Emergency Physicain has interpreted your x-rays. The X-Ray specialist will also review them. If there is a change in the findings, you will be notified in 48 hours when at all possible. 3. A lab test or culture has been done, your results will be reviewed and you will be notified if you need a change in treatment. ADDITIONAL INSTRUCTIONS AND INFORMATION: 1. Your care today has been supervised by a physician who is specially trained in emergency care. Many problems require more than one evaluation for a complete diagnosis and treatment. We recommend that you schedule your follow up appointment as recommended to ensure complete treatment of you illness or injury. If you are unable to obtain follow up care and continue to have a problem, or if your condition worsens, we recommend that you return to the ED. 2. We are not able to safely determine your condition over the phone nor are we able to give sound medical advice over the phone. For these safety reasons, if you call for medical advice we will ask you to come to the ED for further evaluation. 3. If you have any questions regarding these discharge instructions please call the ED at [phone]. SAFETY INFORMATION: In the interest of safety, wellness, and injury prevention; we encourage you to wear your sealbelt, if you smoke; quite smoking, and we encourage family to use a protective helmet for bicycling and other sporting events that present an increased risk for head injury. IF YOUR SYMPTOMS WORSEN OR NEW SYMPTOMS DEVELOP, OR YOU HAVE CONCERNS ABOUT YOUR CONDITION; OR IF YOUR CONDITION WORSENS WHILE YOU ARE WAITING FOR YOUR FOLLOW UP APPOINT MENT; EITHER CONTACT YOUR PRIMARY CARE DOCTOR, THE PHYSICIAN WHOSE NAME AND NUMBER YOU WERE GIVEN, OR RETURN TO THE ED IMMEDIATELY. GUSTAVO BENJAMIN DO Jun 09, 2020 15:14
[2020-06-09 16:04] LABS: BASO # 0.1 x10^3/uL (0.0-0.2); BASO % 1 % (0-3); EOS # 0.2 x10^3/uL (0.0-0.7); EOS % 2 % (0-3); HEMATOCRIT 38.4 % (36.0-47.0); HEMOGLOBIN 12.7 g/dL (12.0-15.5); LYMPH % 37 % (24-48); MEAN CORPUSCULAR HEMOGLOBIN 27 pg (25-35); MEAN CORPUSCULAR HGB CONC 33 g/dL (31-37); MEAN CORPUSCULAR VOLUME 83 fL (79-100); MONO # 0.4 x10^3/uL (0.0-1.1); MONO % 5 % (0-9); NEUT # 4.4 x10^3/uL (1.8-7.7); NEUT % 55 % (31-73); PLATELET COUNT 296 x10^3/uL (140-400); RED BLOOD COUNT 4.65 x10^6/uL (3.50-5.40); RED CELL DISTRIBUTION WIDTH 15.1 % (11.5-14.5)
[2020-06-09 16:23] LABS: CALCIUM 9.5 mg/dL (8.5-10.1); CREATININE 0.6 mg/dL (0.6-1.0); GFR 106.7; POTASSIUM 3.5 mmol/L (3.5-5.1)
[2020-06-09 16:24] LABS: PREG TEST PT QUAL NEGATIVE (NEG)
[2020-06-09 16:37] LABS: ALBUMIN 3.8 g/dL (3.4-5.0); TOTAL BILIRUBIN 0.4 mg/dL (0.2-1.0); TOTAL PROTEIN 7.8 g/dL (6.4-8.2)
[2020-06-09 17:30] VITALS: BP 142/77
== END 2020-06-09 18:25 | disposition home or self-care (01) ==
LOC: ER 12:52
DX: R00.2 Palpitations (principal); R07.89 Other chest pain; R06.02 Shortness of breath; E78.00 Pure hypercholesterolemia, unspecified; I10 Essential (primary) hypertension; G43.909 Migraine, unspecified, not intractable, without status migrainosus; Z87.442 Personal history of urinary calculi; Z86.73 Personal history of transient ischemic attack (TIA), and cerebral infarction without residual deficits; Z90.710 Acquired absence of both cervix and uterus; Z90.49 Acquired absence of other specified parts of digestive tract; Z90.89 Acquired absence of other organs; Z98.890 Other specified postprocedural states
CPT/HCPCS: 36415; 71045; 80053; 80307; 84484; 84703; 85025; 85379; 93005; 99285

== ENCOUNTER 2021-01-09 00:07 | Emergency (ER) | payer BC ==
[~2021-01-09] VITALS: Ht 160 cm; Wt 106.8 kg
--- NOTE | 2021-01-09 00:24 | PHYS DOC ---
Past Medical History Past Medical History: Gallstones, High Cholesterol, Hypertension, Migraines, Ovarian Cyst, TIA Additional Past Medical Histor: covid 19 Past Surgical History: Cholecystectomy, , Hysterectomy Additional Past Surgical Histo: right knee, OOPHORECTOMY Smoking Status: Never Smoker Alcohol Use: Rarely Drug Use: None General Adult EDM: Chief Complaint: MULTIPLE COMPLAINTS HPI: HPI: Patient is a 50 year old female presents with a chief complaint of headache, chest pain, palpitations, and migraine headache. Patient states symptoms initially started after a Covid infection in February. Patient states headache chest pain and palpitations have been on and off since February. Patient states over the last few days symptoms become more frequent. Patient headache is in the frontal region. Her chest pain has been nonstop over the last few days. Pain does not radiate. She has no associated nausea vomiting or shortness of breath. Patient also complains of a migraine headache. States migraine is in its typical location-- right retro-orbital. Review of Systems: Review of Systems: Review of systems: Constitutional symptoms- No fever, no chills. Eyes- No Discharge, No Visual Loss Respiratory symptoms- No shortness of breath, No wheezing, No Dyspnea on Exertion Cardiovascular Systems; Positive chest pain, Positive Palpitations, No syncope Gastrointestinal symptoms: NO abdominal pain, no nausea, no vomiting or diarrhea. Genitourinary symptoms: No dysuria. Musculoskeletal symptoms: No back pain No extremity pain. Positive myalgias NEUROLOGICAL Symptoms: No headache, no generalized weakness; No focal Weakness Skin: No rash. Heart Score: C/O Chest Pain: Yes HEART Score for Chest Pain: HEART Score for Chest Pain Response (Comments) Value History Slighlty/Non-Suspicious 0 ECG Normal 0 Age >45 - < 65 1 Risk Factors 1 or 2 Risk Factors 1 Troponin < Normal Limit 0 Total 2 Risk Factors: Risk Factors: DM, Current or recent (<one month) smoker, HTN, HLP, family history of CAD, obesity. Risk Scores: Score 0 - 3: 2.5% MACE over next 6 weeks - Discharge Home Score 4 - 6: 20.3% MACE over next 6 weeks - Admit for Clinical Observation Score 7 - 10: 72.7% MACE over next 6 weeks - Early Invasive Strategies Allergies: Allergies: Allergies Coded Allergies Type Severity Reaction Last Updated Verified acetaminophen Adverse Reaction Mild Nausea and Vomiting 11/06/18 Yes hydrocodone Adverse Reaction Mild Nausea and Vomiting 11/06/18 Yes meperidine Adverse Reaction Mild Anxiety 06/02/18 Yes Physical Exam: PE: Constitutional: Well developed, well nourished, no acute distress, non-toxic appearance. [] HENT: Normocephalic, atraumatic, bilateral external ears normal, oropharynx moist, no oral exudates, nose normal. [] Eyes: PERRLA, EOMI, conjunctiva normal, no discharge. [] Neck: Normal range of motion, no tenderness, supple, no stridor. [] Cardiovascular:Heart rate regular rhythm, no murmur [] Lungs & Thorax: Bilateral breath sounds clear to auscultation [] Abdomen: Bowel sounds normal, soft, no tenderness, no masses, no pulsatile masses. [] Skin: Warm, dry, no erythema, no rash. [] Back: No tenderness, no CVA tenderness. [] Extremities: No tenderness, no cyanosis, no clubbing, ROM intact, no edema. [] Neurologic: Alert and oriented X 3, normal motor function, normal sensory function, no focal deficits noted. [] Psychologic: Affect normal, judgement normal, mood normal. [] EKG: EKG: Performed at 0016 Rate 78 Normal sinus rhythm No ST elevation No ST depression No acute PA [] Radiology/Procedures: Radiology/Procedures: [] Impression: FINDINGS: Single view of chest obtained. Cardiac silhouette is mildly prominent but likely exaggerated by portable technique. Degenerative changes of the spine. No definite focal airspace consolidation IMPRESSION: * No focal airspace consolidation. Electronically signed by: Delfino Stuot MD (01/09/2021 12:46 AM) DESKTOP- [id number] Course & Med Decision Making: Course & Med Decision Making Pertinent Labs and Imaging studies reviewed. (See chart for details) [] Patient was evaluated for chief complaint work-up consisted of laboratory analysis and radiologic imaging and EKG. Results reviewed and discussed with patient and family. No acute lab radiologic or EKG abnormalities. Patient's pain was treated with morphine with minimal improvement. Patient was redosed with Dilaudid Benadryl Compazine. Patient was discharged home with instructions to follow-up with her primary care physician. Lilian Disclaimer: Lilian Disclaimer: This electronic medical record was generated, in whole or in part, using a voice recognition dictation system. Departure Departure Impression: Primary Impression: Chest pain Additional Impressions: Headache Palpitations Disposition: 01 HOME / SELF CARE / HOMELESS Condition: STABLE Referrals: Miguel Ángel FOUNTAIN MD (PCP) Patient Instructions: Chest Pain (Nonspecific), Headache, FAQs, Palpitations ANGÉLICA STAKRS DO Jan 09, 2021 00:24
--- NOTE | 2021-01-09 00:48 | RAD ---
INDICATION: Reason: chest pain / Spl. Instructions: / History: COMPARISON: May 2020 FINDINGS: Single view of chest obtained. Cardiac silhouette is mildly prominent but likely exaggerated by portable technique. Degenerative changes of the spine. No definite focal airspace consolidation IMPRESSION: * No focal airspace consolidation. Electronically signed by: Delfino Stout MD (01/09/2021 12:46 AM) [id number]
[2021-01-09 01:04] LABS: BASO # 0.1 x10^3/uL (0.0-0.2); BASO % 1 % (0-3); EOS # 0.2 x10^3/uL (0.0-0.7); EOS % 2 % (0-3); HEMATOCRIT 36.9 % (36.0-47.0); HEMOGLOBIN 12.3 g/dL (12.0-15.5); LYMPH # 3.5 x10^3/uL (1.0-4.8); LYMPH % 34 % (24-48); MEAN CORPUSCULAR HEMOGLOBIN 27 pg (25-35); MEAN CORPUSCULAR HGB CONC 33 g/dL (31-37); MEAN CORPUSCULAR VOLUME 82 fL (79-100); MONO # 0.8 x10^3/uL (0.0-1.1); MONO % 7 % (0-9); NEUT # 5.7 x10^3/uL (1.8-7.7); NEUT % 55 % (31-73); PLATELET COUNT 290 x10^3/uL (140-400); WHITE BLOOD COUNT 10.4 x10^3/uL (4.0-11.0)
[2021-01-09 01:15] LABS: CALCIUM 9.3 mg/dL (8.5-10.1); CREATININE 0.8 mg/dL (0.6-1.0); GFR 76.2; POTASSIUM 3.4 mmol/L (3.5-5.1)
[2021-01-09 01:22] LABS: ALBUMIN 3.6 g/dL (3.4-5.0); ALBUMIN/GLOBULIN RATIO 0.9 (1.0-1.7); TOTAL BILIRUBIN 0.2 mg/dL (0.2-1.0); TOTAL PROTEIN 7.8 g/dL (6.4-8.2)
[2021-01-09] MEDS ORDERED: MORPHINE SULFATE 2 MG/ML INJ. IV ONE (01:30)
--- NOTE | 2021-01-09 02:49 | EKG ---
[facility] [address] [place] [address] Test Date: 2021-01-09 Test Time: 00:16:24 Pat Name: LUIS BOSS Department: Room: Gender: F Order Builder: : 1970 Requested By: ANGÉLICA STARKS Order Number: [id number] Reading MD: Measurements Intervals Leighton Rate: 78 P: 43 DE: 156 QRS: 39 QRSD: 86 T: 51 QT: 376 QTc: 432 Interpretive Statements SINUS RHYTHM QRS(T) CONTOUR ABNORMALITY CONSIDER ANTEROSEPTAL MYOCARDIAL DAMAGE POSSIBLY ABNORMAL ECG RI6.01 No previous ECG available for comparison
[2021-01-09 02:56] VITALS: BP 140/66
[2021-01-09] MEDS ORDERED: PROCHLORPERAZINE 10 MG/2 ML VIAL. IV ONE (03:00)
[2021-01-09] MEDS ORDERED: HYDROmorphone 2 MG/ML VIAL IVP ONE (03:00)
[2021-01-09] MEDS ORDERED: diphenhydrAMINE 50 MG/ML VIAL IVP ONE (03:00)
== END 2021-01-09 03:05 | disposition home or self-care (01) ==
LOC: ER 00:07
DX: R07.89 Other chest pain (principal); G43.909 Migraine, unspecified, not intractable, without status migrainosus; R00.2 Palpitations; I10 Essential (primary) hypertension; E78.00 Pure hypercholesterolemia, unspecified; Z86.73 Personal history of transient ischemic attack (TIA), and cerebral infarction without residual deficits; Z88.1 Allergy status to other antibiotic agents; Z88.6 Allergy status to analgesic agent; Z88.5 Allergy status to narcotic agent
CPT/HCPCS: 36415; 71045; 80053; 84484; 85025; 93005; 96374; 96375; 99285; J0780; J1170; J1200; J2270

== ENCOUNTER → 2021-02-17 | Outpatient (CLI) | payer BC ==
--- NOTE | 2021-02-17 11:13 | CARD ---
MR#: [id number] Date of Study: 02/17/2021 Ordering Physician: Antione FOUNTAIN, Referring Physician: Joshua AKINS: Rojelio Castillo [facility] APPROVED REPORT EXAM: Two-dimensional and M-mode echocardiogram with Doppler and color Doppler. Other Information Quality : FairHR: 73bpm Rhythm : NSR INDICATION Murmur RISK FACTORS Hypertension Obesity Hyperlipidemia 2D DIMENSIONS Left Atrium(2D)3.6 (1.6-4.0cm)IVSd1.3 (0.7-1.1cm) Aortic Root(2D)2.7 (2.0-3.7cm)LVDd4.5 (3.9-5.9cm) LVOT Diameter2.0 (1.8-2.4cm)PWd1.4 (0.7-1.1cm) LVDs2.9 (2.5-4.0cm)FS (%) 35.9 % SV61.1 mlLVEF(%)65.6 (>50%) Aortic Valve AoV Peak Jerry.168.7cm/sAoV VTI36.6cm AO Peak GR.11.4mmHgLVOT Peak Jerry.141.3cm/s LVOT VTI 31.27cmAO Mean GR.6mmHg KRISTAL (VMAX)1.35mp3WXD (VTI)2.57cm2 Mitral Valve MV E Twxhtezw26.8cm/sMV DECEL WIZV063wi MV A Wcrvaass77.8cm/sMV HVH49cs E/A Ratio1.5MVA (PHT)3.45cm2 TDI E/Lateral E'10.9E/Medial E'14.6 Pulmonary Valve PV Peak Mrsscvvs400.7cm/sPV Peak Grad.4mmHg Tricuspid Valve TR P. Ycobrkvj880ew/sTR Peak Gr.24mmHg Pulmonary Vein S1 Berbvfio55.4cm/sD2 Asyuiidz26.1cm/s LEFT VENTRICLE The left ventricle is normal size. There is mild to moderate concentric left ventricular hypertrophy. The left ventricular systolic function is normal and the ejection fraction is within normal range. E F 55% There is normal LV segmental wall motion. The left ventricular diastolic function and filling i s normal for age. No left ventricle thrombus noted on this study. There is no ventricular septal defe ct visualized. There is no left ventricular aneurysm. There is no mass noted in the left ventricle. RIGHT VENTRICLE The right ventricle is normal size. There is normal right ventricular wall thickness. The right ventr icular systolic function is normal. ATRIA The left atrium is moderately dilated. The right atrium size is normal. The interatrial septum is int act with no evidence for an atrial septal defect or patent foramen ovale as noted on 2-D or Doppler i maging. AORTIC VALVE The aortic valve is normal in structure and function. Doppler and Color Flow revealed no significant aortic regurgitation. There is no significant aortic valvular stenosis. There is no aortic valvular v egetation. MITRAL VALVE The mitral valve is normal in structure and function. There is no evidence of mitral valve prolapse. There is no mitral valve stenosis. Doppler and Color-flow revealed trace to mild mitral regurgitation . TRICUSPID VALVE The tricuspid valve is normal in structure and function. Doppler and Color Flow revealed trace tricus pid regurgitation. There is no tricuspid valve prolapse or vegetation. There is no tricuspid valve st enosis. PULMONIC VALVE Not well seen but appears normal. Doppler and Color Flow revealed no pulmonic valvular regurgitation. There is no pulmonic valvular stenosis. GREAT VESSELS The aortic root is normal in size. The ascending aorta is normal in size. The IVC is normal in size a nd collapses >50% with inspiration. PERICARDIAL EFFUSION There is no pleural effusion. There is no evidence of significant pericardial effusion. Critical Notification Critical Value: No <Conclusion> The left ventricular systolic function is normal and the ejection fraction is within normal range. EF 55% There is normal LV segmental wall motion. Signed by : Jean Pierre Walton, Electronically Approved : 02/17/2021 11:12:59
== END ==
LOC: ECHO 08:51
PROVIDERS: ATTEND Family Medicine
DX: I34.0 Nonrheumatic mitral (valve) insufficiency (principal); I51.7 Cardiomegaly; R01.1 Cardiac murmur, unspecified
CPT/HCPCS: 93306

== ENCOUNTER 2021-05-28 16:32 | Emergency (ER) | payer BC, OTHER ==
[~2021-05-28] VITALS: Ht 167.6 cm; Wt 115.0 kg
[~2021-05-28 16:32] MED LIST changes: +CYCL10TA19 PO; -CYCL10TA2 PO
[2021-05-28] MEDS ORDERED: ASPIRIN CHEWABLE 81 MG TABLET. PO ONE (17:00)
[2021-05-28] MEDS ORDERED: NITROGLYCERIN SUBLINGUAL 0.4 MG BOTTLE OF 25. SL PRN (17:00)
--- NOTE | 2021-05-28 17:09 | PHYS DOC ---
Past Medical History Past Medical History: Gallstones, High Cholesterol, Hypertension, Migraines, Ovarian Cyst, TIA Additional Past Medical Histor: covid 19 Past Surgical History: Cholecystectomy, , Hysterectomy Additional Past Surgical Histo: right knee, OOPHORECTOMY Smoking Status: Never Smoker Alcohol Use: Rarely Drug Use: None General Adult EDM: Chief Complaint: CHEST PAIN HPI: HPI: Patient is a 50-year-old female who presents to the emergency department today for chest pain. Patient is reporting epigastric chest pain that started last night around 2029. She reports that the pain resolved and she went to bed but started intermittently throughout the night but resolved shortly after. She reports that around 12:00 the pain started again today but did not resolve so she decided to be seen in the emergency department. Patient describes the pain as a tightness and a burning pain it is intermittent. She rates it 4 out of 10. No alleviating or aggravating factors. Patient is also reporting left jaw pain. She states it feels like when her TMJ is worsening. She is also reporting left arm heaviness. Patient is also complaining of nausea with 1 episode of vomiting and dizziness. She denies shortness of breath, cough, fever. She has a history of hyperlipidemia and hypertension. Patient states that she has a history of chest pain and has been seen previously for this pain. It appears that patient had an ER visit in December of this year for the same symptoms. She reports that she follows up with Dr. Asfi at [facility] and she states that she wore a Holter monitor but no abnormalities were found. She does not smoke cigarettes. Patient's vital signs are stable and she is in no acute distress. Review of Systems: Review of Systems: Constitutional: See HPI Respiratory: See HPI Cardiovascular: See HPI GI: See HPI Musculoskeletal: See HPI Heart Score: C/O Chest Pain: Yes HEART Score for Chest Pain: HEART Score for Chest Pain Response (Comments) Value History Slighlty/Non-Suspicious (reproducable pain, intermittent x24 hours, pain quickly resolved throughout night) 0 ECG Normal 0 Age >45 - < 65 1 Risk Factors >3 Risk Factors or Hx CAD (obesity, htn, hlp) 2 Troponin < Normal Limit 0 Total 3 Risk Factors: Risk Factors: DM, Current or recent (<one month) smoker, HTN, HLP, family history of CAD, obesity. Risk Scores: Score 0 - 3: 2.5% MACE over next 6 weeks - Discharge Home Score 4 - 6: 20.3% MACE over next 6 weeks - Admit for Clinical Observation Score 7 - 10: 72.7% MACE over next 6 weeks - Early Invasive Strategies Current Medications: Current Medications Medications (Trade) Dose Ordered Sig/[facility] Start Time Stop Time Status Last Admin Dose Admin Aspirin (Aspirin Chewable) 324 mg 1X ONCE 05/28/21 17:00 05/28/21 17:01 DC Nitroglycerin (Nitrostat) 0.4 mg PRN Q5MIN PRN 05/28/21 17:00 05/29/21 16:59 Allergies: Allergies: Allergies Coded Allergies Type Severity Reaction Last Updated Verified acetaminophen Adverse Reaction Mild Nausea and Vomiting 11/06/18 Yes hydrocodone Adverse Reaction Mild Nausea and Vomiting 11/06/18 Yes meperidine Adverse Reaction Mild Anxiety 06/02/18 Yes Physical Exam: PE: Constitutional: Well developed, well nourished, no acute distress, non-toxic appearance. [] HENT: Normocephalic, atraumatic, bilateral external ears normal, oropharynx moist, no oral exudates, nose normal. [] Eyes: PERRL, EOMI, conjunctiva normal, no discharge. [] Neck: Normal range of motion, no stridor Cardiovascular:Heart rate regular rhythm, patient states that she "can feel the pain" in her epigastric region with palpation, no murmur [] Lungs & Thorax: Bilateral breath sounds clear to auscultation [] Abdomen: Bowel sounds normal, soft, no tenderness, no masses, obese, no pulsatile masses. [] Skin: Warm, dry, no erythema, no rash. [] Back: Normal range of motion Extremities: No tenderness, no cyanosis, no clubbing, ROM intact, no edema. [] Neurologic: Alert and oriented X 3, normal motor function, normal sensory function, no focal deficits noted. [] Psychologic: Affect normal, judgement normal, mood normal. [] Current Patient Data: Labs: Laboratory Tests Test 05/28/21 17:03 White Blood Count 8.7 x10^3/uL Red Blood Count 4.99 x10^6/uL Hemoglobin 13.1 g/dL Hematocrit 40.3 % Mean Corpuscular Volume 81 fL Mean Corpuscular Hemoglobin 26 pg Mean Corpuscular Hemoglobin Concent 33 g/dL Red Cell Distribution Width 15.2 % Platelet Count 332 x10^3/uL Neutrophils (%) (Auto) 57 % Lymphocytes (%) (Auto) 34 % Monocytes (%) (Auto) 5 % Eosinophils (%) (Auto) 3 % Basophils (%) (Auto) 1 % Neutrophils # (Auto) 5.0 x10^3/uL Lymphocytes # (Auto) 2.9 x10^3/uL Monocytes # (Auto) 0.4 x10^3/uL Eosinophils # (Auto) 0.2 x10^3/uL Basophils # (Auto) 0.1 x10^3/uL Sodium Level 142 mmol/L Potassium Level 3.4 mmol/L Chloride Level 102 mmol/L Carbon Dioxide Level 28 mmol/L Anion Gap 12 Blood Urea Nitrogen 11 mg/dL Creatinine 0.8 mg/dL Estimated GFR (Cockcroft-Gault) 76.2 BUN/Creatinine Ratio 14 Glucose Level 107 mg/dL Calcium Level 9.4 mg/dL Total Bilirubin 0.3 mg/dL Aspartate Amino Transf (AST/SGOT) 29 U/L Alanine Aminotransferase (ALT/SGPT) 51 U/L Alkaline Phosphatase 80 U/L Troponin I High Sensitivity 20 ng/L Total Protein 8.3 g/dL Albumin 3.9 g/dL Albumin/Globulin Ratio 0.9 Current Medications Medications (Trade) Dose Ordered Sig/Albert Route PRN Reason Start Time Stop Time Status Last Admin Dose Admin Aspirin (Aspirin Chewable) 324 mg 1X ONCE PO 05/28/21 17:00 05/28/21 17:01 DC 05/28/21 17:00 Nitroglycerin (Nitrostat) 0.4 mg PRN Q5MIN PRN SL CP RATING > 1/10 05/28/21 17:00 05/29/21 16:59 05/28/21 17:39 Morphine Sulfate (Morphine Sulfate) 2 mg 1X ONCE IVP 05/28/21 18:00 05/28/21 18:01 DC EKG: EKG: EKG performed by ER staff at 1655 shows sinus rhythm with a heart rate of 69, QTc 415, no STEMI read by Dr. Carrion at 1703 Radiology/Procedures: Radiology/Procedures: []PROCEDURE: PORTABLE CHEST 1V XR CHEST 1V INDICATION: cp COMPARISON STUDY: 01/09/2021. FINDINGS: Lungs: Normal lung volume. No pulmonary mass or consolidation. The tracheobronchial tree and hilar structures are normal. Pleura: No pleural effusion or pneumothorax. Heart and Mediastinum: The cardiomediastinal silhouette is normal. The great vessels of the thorax are normal. Bones and Soft Tissues: The bones and soft tissues are within normal limits. IMPRESSION: No acute cardiopulmonary process. Electronically signed by: Tyrone Christiansen MD (05/28/2021 5:29 PM) [facility] DICTATED and SIGNED BY: TYRONE CHRISTIANSEN MD DATE: 05/28/21 [id number] 0 Course & Med Decision Making: Course & Med Decision Making Pertinent Labs and Imaging studies reviewed. (See chart for details) [] Patient presents to the emergency department for chest pain. Patient has a history of chest pain, patient reports intermittent chest pain, in fact patient was seen in this emergency department in December for the same symptoms was evaluated and discharged home. Patient follows up with Dr. Asif at [facility]. She also reports that she wore Holter monitor this year and there were no abnormalities found. Work-up in the ER consisted of blood work, EKG and chest x-ray. Patient treated with aspirin and nitro. Following nitro administration, patient did not have any relief in her pain. Patient was ordered additional pain medication. CBC unremarkable. Patient's was noted to have hypokalemia and this was replaced in the ER. Negative troponin. Chest x- ray unremarkable. Patient's heart score is 3. Patient treated with GI cocktail. Patient reports that following treatment with a GI cocktail, her pain is worse and is now in her upper abdomen. CT imaging performed of her abdomen and pelvis. CT imaging of abdomen and pelvis was unremarkable.. Patient advised to follow-up with her executive community planning tomorrow. Since chest pain started last night at 2030, serial troponins not necessary. I discussed with patient all findings and diagnostic testing as well as the need to follow-up with PCP for further evaluation and treatment or return to the ER if any new or worsening symptoms. Strict return precautions were also discussed at length. Patient voiced understanding and agreement with the plan. Patient is hemodynamically stable at the time of disposition. Dragon Disclaimer: Dragon Disclaimer: This electronic medical record was generated, in whole or in part, using a voice recognition dictation system. Departure Departure Impression: Primary Impression: Chest pain Qualified Codes: R07.9 - Chest pain, unspecified Disposition: HOME / SELF CARE / HOMELESS Condition: GOOD Referrals: Miguel Ángel FOUNTAIN MD (PCP) Patient Instructions: Chest Pain (Nonspecific) Additional Instructions: You were seen in the emergency department today for chest pain. Your work-up in the ER was unremarkable. At this time, does not appear that you are experiencing acute coronary syndrome. However, if your chest pain worsens or persist you will need to be reevaluated. Please follow-up with your executive community planning tomorrow regarding your ER visit. Your potassium level was noted to be mildly low, this was replaced in the ER with a supplement. Please make sure that you are eating potassium rich foods like green leafy vegetables bananas. CT imaging of abdomen and pelvis was unremarkable. Return to the emergency department if you develop worsening or persistence of your chest pain, shortness of breath, intractable vomiting, lightheadedness, syncope, high fevers refractory to treatment or any new or worsening concerns. EMERGENCY DEPARTMENT GENERAL DISCHARGE INSTRUCTIONS Thank you for coming to [facility] Emergency Department (ED) today and trusting us with you care. We trust that you had a positive experience in our Emergency Department. If you wish to speak to the department management, you may call the Director at [phone]. YOUR FOLLOW UP INSTRUCTIONS ARE FOLLOWS: 1. Do you have a private Doctor? If you do not have a private doctor, please ask for a resource list of physicians or clinics that may be able to assist you with follow up care. 2. The Emergency Physicain has interpreted your x-rays. The X-Ray specialist will also review them. If there is a change in the findings, you will be notified in 48 hours when at all possible. 3. A lab test or culture has been done, your results will be reviewed and you will be notified if you need a change in treatment. ADDITIONAL INSTRUCTIONS AND INFORMATION: 1. Your care today has been supervised by a physician who is specially trained in emergency care. Many problems require more than one evaluation for a complete diagnosis and treatment. We recommend that you schedule your follow up appointment as recommended to ensure complete treatment of you illness or injury. If you are unable to obtain follow up care and continue to have a problem, or if your condition worsens, we recommend that you return to the ED. 2. We are not able to safely determine your condition over the phone nor are we able to give sound medical advice over the phone. For these safety reasons, if you call for medical advice we will ask you to come to the ED for further evaluation. 3. If you have any questions regarding these discharge instructions please call the ED at [phone]. SAFETY INFORMATION: In the interest of safety, wellness, and injury prevention; we encourage you to wear your sealbelt, if you smoke; quite smoking, and we encourage family to use a protective helmet for bicycling and other sporting events that present an increased risk for head injury. IF YOUR SYMPTOMS WORSEN OR NEW SYMPTOMS DEVELOP, OR YOU HAVE CONCERNS ABOUT YOUR CONDITION; OR IF YOUR CONDITION WORSENS WHILE YOU ARE WAITING FOR YOUR FOLLOW UP APPOINTMENT; EITHER CONTACT YOUR PRIMARY CARE DOCTOR, THE PHYSICIAN WHOSE NAME AND NUMBER YOU WERE GIVEN, OR RETURN TO THE ED IMMEDIATELY. BRYAN WATT APRN May 28, 2021 17:09
[2021-05-28 17:12] LABS: BASO # 0.1 x10^3/uL (0.0-0.2); BASO % 1 % (0-3); EOS # 0.2 x10^3/uL (0.0-0.7); EOS % 3 % (0-3); HEMATOCRIT 40.3 % (36.0-47.0); HEMOGLOBIN 13.1 g/dL (12.0-15.5); LYMPH # 2.9 x10^3/uL (1.0-4.8); LYMPH % 34 % (24-48); MEAN CORPUSCULAR HEMOGLOBIN 26 pg (25-35); MEAN CORPUSCULAR HGB CONC 33 g/dL (31-37); MEAN CORPUSCULAR VOLUME 81 fL (79-100); MONO # 0.4 x10^3/uL (0.0-1.1); MONO % 5 % (0-9); NEUT % 57 % (31-73); PLATELET COUNT 332 x10^3/uL (140-400); RED BLOOD COUNT 4.99 x10^6/uL (3.50-5.40); RED CELL DISTRIBUTION WIDTH 15.2 % (11.5-14.5); WHITE BLOOD COUNT 8.7 x10^3/uL (4.0-11.0)
[2021-05-28 17:26] LABS: CALCIUM 9.4 mg/dL (8.5-10.1); CREATININE 0.8 mg/dL (0.6-1.0); GFR 76.2; POTASSIUM 3.4 mmol/L (3.5-5.1)
[2021-05-28 17:32] LABS: ALBUMIN 3.9 g/dL (3.4-5.0); ALBUMIN/GLOBULIN RATIO 0.9 (1.0-1.7); TOTAL BILIRUBIN 0.3 mg/dL (0.2-1.0); TOTAL PROTEIN 8.3 g/dL (6.4-8.2)
--- NOTE | 2021-05-28 17:32 | RAD ---
XR CHEST 1V INDICATION: cp COMPARISON STUDY: 01/09/2021. FINDINGS: Lungs: Normal lung volume. No pulmonary mass or consolidation. The tracheobronchial tree and hilar st ructures are normal. Pleura: No pleural effusion or pneumothorax. Heart and Mediastinum: The cardiomediastinal silhouette is normal. The great vessels of the thorax ar e normal. Bones and Soft Tissues: The bones and soft tissues are within normal limits. IMPRESSION: No acute cardiopulmonary process. Electronically signed by: Elpidio Christiansen MD (05/28/2021 5:29 PM) [facility]ITAL[facility]
[2021-05-28] MEDS ORDERED: MORPHINE SULFATE 2 MG/ML INJ. IVP ONE (18:00)
[2021-05-28] MEDS ORDERED: POTASSIUM CHLORIDE 20 MEQ TABLET.ER. PO ONE (18:15)
[2021-05-28 18:22] VITALS: BP 126/60
[2021-05-28] MEDS ORDERED: LIDO:MAALOX 1:1 20 ML SINGLE DOSE. SWSW ONE (18:30)
[2021-05-28] MEDS ORDERED: fentaNYL PF VIAL 100 MCG/2 ML VIAL IVP ONE (19:00)
[2021-05-28] MEDS ORDERED: IOHEXOL 300 MG/ML 100ML VIAL. IV ONE (19:30)
[2021-05-28] MEDS ORDERED: CONTRAST GIVEN. MC PRN (19:30)
--- NOTE | 2021-05-28 19:53 | RAD ---
PQRS Compliance Statement: One or more of the following individualized dose reduction techniques were utilized for this examinat ion: 1. Automated exposure control 2. Adjustment of the mA and/or kV according to patient size 3. Use of iterative reconstruction technique CT ABDOMEN+PELVIS W Clinical Indication: Reason: upper abd pain Comparison: None. Technique: Helical CT imaging of the abdomen and pelvis is performed after 75 cc of Omnipaque 300 IV contrast. Oral contrast not administered. Findings: Lung bases are clear. Cardiac size normal. Cholecystectomy. The liver, spleen, pancreas, adrenal glands, abdominal aorta, and kidneys are normal . The stomach is unremarkable. There is no small bowel obstruction. There is no colon wall thickening. The appendix is normal. No abdominal adenopathy or free fluid. Hysterectomy. The urinary bladder is normal. No pelvic free fluid. No acute bone abnormality. IMPRESSION: No acute abdominal or pelvic abnormality. Electronically signed by: Eyal Lanier MD (05/28/2021 7:50 PM) [facility]US[facility]
--- NOTE | 2021-05-29 02:49 | EKG ---
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
== END 2021-05-28 20:25 | disposition home or self-care (01) ==
LOC: ER 16:32
DX: R07.89 Other chest pain (principal); R11.2 Nausea with vomiting, unspecified; R42 Dizziness and giddiness; E78.00 Pure hypercholesterolemia, unspecified; I10 Essential (primary) hypertension; G43.909 Migraine, unspecified, not intractable, without status migrainosus; Z86.73 Personal history of transient ischemic attack (TIA), and cerebral infarction without residual deficits; Z88.5 Allergy status to narcotic agent; Z88.8 Allergy status to other drugs, medicaments and biological substances
CPT/HCPCS: 36415; 71045; 74177; 80053; 84484; 85025; 93005; 96374; 96375; 99285; J2270; J3010; Q9967

== ENCOUNTER → 2021-06-17 | Outpatient (CLI) | payer OTHER ==
[2021-05-28 18:22] VITALS: BP 126/60
--- NOTE | 2021-06-17 08:18 | RAD ---
EXAM: Temporomandibular joints, 4 views. HISTORY: Temporomandibular joint disorder. COMPARISON: None. FINDINGS: 4 views of the temporomandibular joints are obtained. There is no fracture, dislocation or subluxation. The mandibular condyles are normal in configuration. The paranasal sinuses are clear. Th ere is minimal rightward nasal septal deviation. There are multiple dental restorations. There is no suspicious calvarial lesion. IMPRESSION: No acute osseous finding. Electronically signed by: Allyson Ladd MD (06/17/2021 8:16 AM) [id number]
== END ==
LOC: RAD 07:46
PROVIDERS: ATTEND Family Medicine
DX: J34.2 Deviated nasal septum (principal); M26.609 Unspecified temporomandibular joint disorder, unspecified side; Z98.811 Dental restoration status
CPT/HCPCS: 70110

== ENCOUNTER 2021-07-21 08:57 | Inpatient (IN) | payer OTHER ==
[~2021-07-21] VITALS: Ht 160 cm; Wt 110.8 kg
[2021-07-21] VITALS (21 sets, daily range): BP systolic 124–170; BP diastolic 69–97
[2021-07-21] MEDS ORDERED: IV NORMAL SALINE 1000ML BAG 1,000 ML IV SCH (09:15)
[2021-07-21 09:41] LABS: PROTHROMBIN TIME PATIENT 11.9 SEC (11.7-14.0)
--- NOTE | 2021-07-21 09:44 | RAD ---
CT STROKE HEAD W/O Date: 07/21/2021 9:34 AM Clinical Indication: L FACIAL DROOP, L ARM AND LEG WEAKNESS Comparison: None. Technique: 5 mm axial tomographic images were obtained of the head without contrast. These were view ed on brain and bone windows. One or more of the following dose reduction techniques were utilized: A utomated exposure control (AEC), Adjustment of mA and/or kV according to patient size, Use of iterati ve reconstruction technique such as ASiR, CT scan done according to ALARA and image gently/image pedraza ly Findings: The brain parenchyma is normal in attenuation. No intra- or extra-axial mass or fluid collection. No acute hemorrhage. The ventricles are normal in size, shape, and morphology. The corral-white matter libertad ction is normal. The subarachnoid cisterns are patent. Right frontal recess osteoma. The visualized paranasal sinuses are otherwise normal. The visualized portions of the orbits and globes are normal. The mastoid air cells are clear. The wellness assistant topogram shows no lytic lesion or fracture. Impression: No acute hemorrhage or large territory corral-white loss. FOR INTERNAL CODING PURPOSES Critical result: Findings discussed with MINA GOMEZ MD at 07/21/2021 9:33 AM. RESULT CODE: (C) Electronically signed by: Elpidio Christiansen MD (07/21/2021 9:42 AM) [id number]
[2021-07-21] MEDS ORDERED: CONTRAST GIVEN. MC PRN (09:45)
[2021-07-21] MEDS ORDERED: IOHEXOL 300 MG/ML 100ML VIAL. IV ONE (09:45)
[2021-07-21 09:53] LABS: CALCIUM 7.8 mg/dL (8.5-10.1); CREATININE 0.9 mg/dL (0.6-1.0); GFR 66.5; POTASSIUM 3.5 mmol/L (3.5-5.1)
--- NOTE | 2021-07-21 09:54 | RAD ---
EXAM: CTA HEAD AND NECK W/WO CONTRAST DATE: 07/21/2021 9:40 AM INDICATION: L FACIAL DROOP, L ARM AND LEG WEAKNESS TECHNIQUE: CTA angiogram of the head and neck was obtained after IV bolus administration of 75 cc of Omnipaque 300. The images were sent to workstation and multiplanar reconstructions were obtained. Mu ltiplanar reconstruction images to include MIP and 3-D reconstruction images are submitted. One or more of the following dose reduction techniques were utilized: Automated exposure control (AEC ), Adjustment of mA and/or kV according to patient size, Use of iterative reconstruction technique muaricio ch as ASiR, CT scan done according to ALARA and image gently/image wisely COMPARISON: Noncontrast CT head done earlier the same day. FINDINGS: CTA Head: The visualized distal internal carotid arteries, anterior and middle cerebral arteries are patent and normal caliber. origins of the legislative assistant. Hypoplastic basilar artery. Intracranial vertebral arteri es are hypoplastic, markedly so on the right after the takeoff of PICA. legislative assistant are patent. No aneurysm or arteriovenous malformation is seen. CTA Neck: Right carotid: The right common carotid artery is patent and normal caliber. The carotid bifurcation is normal. No stenosis of the right internal carotid artery per NASCET criteria. The right external c arotid artery is patent. Left carotid: The left common carotid artery is patent and normal caliber. Mild atherosclerosis of th e carotid bifurcation. No stenosis of the left internal carotid artery per NASCET criteria. The left external carotid artery is patent. Right vertebral: The right vertebral artery is patent and diffusely hypoplastic. Left vertebral: The left vertebral artery is patent and normal caliber. Aberrant origin of the right subclavian artery. The origins of the brachiocephalic and subclavian art eries are normal. No cervical lymphadenopathy. The thyroid gland is normal. The parotid and submandibular glands are no rmal. The visualized aerodigestive tract is unremarkable. Mild multilevel degenerative disc height loss. Multilevel disc protrusions and marginal osteophytes r esults in multilevel spinal canal stenosis. Multilevel uncovertebral and facet arthrosis with multile alka neural foraminal narrowing. The visualized portions of the lungs are clear. IMPRESSION: 1. No intracranial large vessel occlusion. 2. No stenosis of the cervical carotid or vertebral arteries. FOR INTERNAL CODING PURPOSES Critical result: Findings discussed with MINA GOMEZ MD at 07/21/2021 9:40 AM. RESULT CODE: (C) PQRS Compliance Statement - Stenosis calculations for CT, MR and conventional angiography are based u milan measurement of the distal ICA diameter in accordance with the NASCET methodology. Electronically signed by: Elpidio Christiansen MD (07/21/2021 9:52 AM) [id number]
[2021-07-21 09:56] LABS: BASO # 0.1 x10^3/uL (0.0-0.2); BASO % 1 % (0-3); EOS # 0.3 x10^3/uL (0.0-0.7); EOS % 3 % (0-3); HEMATOCRIT 38.4 % (36.0-47.0); HEMOGLOBIN 12.4 g/dL (12.0-15.5); LYMPH # 2.7 x10^3/uL (1.0-4.8); LYMPH % 35 % (24-48); MEAN CORPUSCULAR HEMOGLOBIN 26 pg (25-35); MEAN CORPUSCULAR HGB CONC 32 g/dL (31-37); MEAN CORPUSCULAR VOLUME 81 fL (79-100); MONO # 0.5 x10^3/uL (0.0-1.1); MONO % 6 % (0-9); NEUT # 4.1 x10^3/uL (1.8-7.7); NEUT % 54 % (31-73); PLATELET COUNT 326 x10^3/uL (140-400); RED BLOOD COUNT 4.78 x10^6/uL (3.50-5.40); RED CELL DISTRIBUTION WIDTH 16.2 % (11.5-14.5); WHITE BLOOD COUNT 7.6 x10^3/uL (4.0-11.0)
[2021-07-21] MEDS ORDERED: LABETALOL 20 MG/4 ML DISP.SYRIN. IVP PRN ×2 (10:30→11:00)
[2021-07-21] MEDS ORDERED: ALTEPLASE 9 MG IV ONE (10:30)
[2021-07-21] MEDS ORDERED: IV NORMAL SALINE 100ML 100 ML IV ONE (10:30)
[2021-07-21] MEDS ORDERED: ALTEPLASE 81 MG IV ONE (10:30)
[2021-07-21] MEDS ORDERED: ACETAMINOPHEN 650 MG SUPP.RECT. PR PRN (11:00)
[2021-07-21] MEDS ORDERED: ONDANSETRON PF 4 MG/2 ML VIAL. IVP PRN (11:00)
[2021-07-21] MEDS ORDERED: ACETAMINOPHEN 325 MG TABLET. PO PRN (11:00)
--- NOTE | 2021-07-21 11:17 | PHYS DOC ---
Past Medical History Past Medical History: Gallstones, High Cholesterol, Hypertension, Migraines, Ovarian Cyst, TIA Additional Past Medical Histor: covid 19 Past Surgical History: No Surgical History Additional Past Surgical Histo: right knee, OOPHORECTOMY Smoking Status: Former Smoker Alcohol Use: Occasionally Drug Use: None General Adult EDM: Chief Complaint: NEURO SYMPTOMS/DEFICITS HPI: HPI: Patient is a 50 year old female with history of HTN, HLD, multiple previous TIAs, migraines who presents with left-sided weakness and facial droop. Patient states that she was feeling slightly fatigued this morning when she awoke. She went into her kitchen at approximately 8 AM and felt like she may pass out. She dropped onto her knees and then began having left-sided numbness/tingling and heaviness in her extremities. No right-sided symptoms. No speech difficulty or vision changes. She looked in the mirror noticed left- sided facial droop. She came immediately to the emergency department. She is on a daily aspirin, but takes no anticoagulant medications. No recent head trauma or surgeries. No previous history of intracranial hemorrhage. She does state that she has had approximately 3 previous TIAs and they have all improved on their own without treatment. States the latest of them was approximately 2 years ago. Review of Systems: Review of Systems: Constitutional: Denies fever or chills. [] Eyes: Denies change in visual acuity. [] HENT: Denies nasal congestion or sore throat. [] Respiratory: Denies cough or shortness of breath. [] Cardiovascular: Denies chest pain or edema. [] GI: Denies abdominal pain, nausea, vomiting, bloody stools or diarrhea. [] : Denies dysuria. [] Musculoskeletal: Denies back pain or joint pain. [] Integument: Denies rash. [] Neurologic: Reports left-sided weakness and sensory change. Psychiatric: Denies depression or anxiety. [] Heart Score: C/O Chest Pain: No Current Medications: Current Medications Medications (Trade) Dose Ordered Sig/Albert Start Time Stop Time Status Last Admin Dose Admin Acetaminophen (Tylenol Supp) 650 mg PRN Q6HRS PRN 07/21/21 11:00 UNV Acetaminophen (Tylenol) 650 mg PRN Q6HRS PRN 07/21/21 11:00 UNV Alteplase, Recombinant 81 ml @ 81 mls/hr 1X ONCE 07/21/21 10:30 07/21/21 11:29 Info (CONTRAST GIVEN -- Rx MONITORING) 1 each PRN DAILY PRN 07/21/21 09:45 07/23/21 09:44 Iohexol (Omnipaque 300 Mg/ml) 75 ml 1X ONCE 07/21/21 09:45 07/21/21 09:46 DC 07/21/21 09:36 75 ML Labetalol HCl (Normodyne Iv Push) 10 mg PRN Q10MIN PRN 07/21/21 11:00 UNV Nicardipine HCl 50 mg/Sodium Chloride 250 ml @ 25 mls/hr CONT PRN PRN 07/21/21 11:00 UNV Ondansetron HCl (Zofran) 4 mg PRN Q6HRS PRN 07/21/21 11:00 UNV Sodium Chloride 100 ml @ 100 mls/hr 1X ONCE 07/21/21 10:30 07/21/21 11:29 Allergies: Allergies: Allergies Coded Allergies Type Severity Reaction Last Updated Verified acetaminophen Adverse Reaction Mild Nausea and Vomiting 05/28/21 Yes hydrocodone Adverse Reaction Mild Nausea and Vomiting 05/28/21 Yes meperidine Adverse Reaction Mild Anxiety 05/28/21 Yes Physical Exam: PE: Constitutional: Well developed, well nourished, no acute distress, non-toxic appearance. [] HENT: Normocephalic, atraumatic, b Eyes: PERRLA, EOMI,\ Neck: Normal range of motion, no tenderness, supple, no stridor. [] Cardiovascular:Heart rate regular rhythm, no murmur [] Lungs & Thorax: Bilateral breath sounds clear to auscultation [] Abdomen: Bowel sounds normal, soft, no tenderness, no masses, no pulsatile masses. [] Skin: Warm, dry, no erythema, no rash. [] Back: No tenderness, no CVA tenderness. [] Extremities: No tenderness, no cyanosis, no clubbing, ROM intact, no edema. [] Neurologic: GCS 15 Alert, oriented x3 Answers age and month correctly. Follows simple commands blinking eyes and squeezing fist. EOMI and visual bansal intact Left-sided lower facial droop, spares forehead. Left-sided facial sensory changes. Left upper and lower extremity with very mild drift, but does not strike the bed No ataxia Patient consents being touched on the left side, but states that it feels different than the right. No aphasia No dysarthria No inattention NIH =4 Psychologic: Affect normal, judgement normal, mood normal. [] Current Patient Data: Labs: Laboratory Tests Test 07/21/21 09:07 07/21/21 09:10 07/21/21 09:33 Glucose (Fingerstick) 121 mg/dL (70-99) H Prothrombin Time 11.9 SEC (11.7-14.0) Prothrombin Time INR 0.9 (0.8-1.1) Activated Partial Thromboplast Time 31 SEC (24-38) White Blood Count 7.6 x10^3/uL (4.0-11.0) Red Blood Count 4.78 x10^6/uL (3.50-5.40) Hemoglobin 12.4 g/dL (12.0-15.5) Hematocrit 38.4 % (36.0-47.0) Mean Corpuscular Volume 81 fL (79-100) Mean Corpuscular Hemoglobin 26 pg (25-35) Mean Corpuscular Hemoglobin Concent 32 g/dL (31-37) Red Cell Distribution Width 16.2 % (11.5-14.5) H Platelet Count 326 x10^3/uL (140-400) Neutrophils (%) (Auto) 54 % (31-73) Lymphocytes (%) (Auto) 35 % (24-48) Monocytes (%) (Auto) 6 % (0-9) Eosinophils (%) (Auto) 3 % (0-3) Basophils (%) (Auto) 1 % (0-3) Neutrophils # (Auto) 4.1 x10^3/uL (1.8-7.7) Lymphocytes # (Auto) 2.7 x10^3/uL (1.0-4.8) Monocytes # (Auto) 0.5 x10^3/uL (0.0-1.1) Eosinophils # (Auto) 0.3 x10^3/uL (0.0-0.7) Basophils # (Auto) 0.1 x10^3/uL (0.0-0.2) Sodium Level 139 mmol/L (136-145) Potassium Level 3.5 mmol/L (3.5-5.1) Chloride Level 104 mmol/L (98-107) Carbon Dioxide Level 27 mmol/L (21-32) Anion Gap 8 (6-14) Blood Urea Nitrogen 12 mg/dL (7-20) Creatinine 0.9 mg/dL (0.6-1.0) Estimated GFR (Cockcroft-Gault) 66.5 Glucose Level 118 mg/dL (70-99) H Calcium Level 7.8 mg/dL (8.5-10.1) L Troponin I High Sensitivity 19 ng/L (4-50) Laboratory Tests 07/21/21 09:33 Laboratory Tests 07/21/21 09:33 Vital Signs: Vital Signs Date Time Temp Pulse Resp B/P (MAP) Pulse Ox O2 Delivery O2 Flow Rate FiO2 07/21/21 09:05 98.5 72 18 145/57 (86) 99 Room Air 98.5 EKG: EKG: Sinus rhythm. Normal axis. Rate 70. No ischemic changes. [] Radiology/Procedures: Radiology/Procedures: [] Impression: [facility] [id number] [id number] IMAGING REPORT Signed PATIENT: LUIS BOSS LACCOUNT: [id number] : 1970 LOCATION: ER AGE: 50 SEX: F EXAM STATUS: REG ER ORD. PHYSICIAN: MINA GOMEZ MD REASON: L FACIAL DROOP, L ARM AND LEG WEAKNESS PROCEDURE: CT ANGIOGRAPHY HEAD AND NECK EXAM: CTA HEAD AND NECK W/WO CONTRAST DATE: 07/21/2021 9:40 AM INDICATION: L FACIAL DROOP, L ARM AND LEG WEAKNESS TECHNIQUE: CTA angiogram of the head and neck was obtained after IV bolus administration of 75 cc of Omnipaque 300. The images were sent to workstation and multiplanar reconstructions were obtained. Multiplanar reconstruction images to include MIP and 3-D reconstruction images are submitted. One or more of the following dose reduction techniques were utilized: Automated exposure control (AEC), Adjustment of mA and/or kV according to patient size, Use of iterative reconstruction technique such as ASiR, CT scan done according to ALARA and image gently/image wisely COMPARISON: Noncontrast CT head done earlier the same day. FINDINGS: CTA Head: The visualized distal internal carotid arteries, anterior and middle cerebral arteries are patent and normal caliber. origins of the maintenance assistant. Hypoplastic basilar artery. Intracranial vertebral arteries are hypoplastic, markedly so on the right after the takeoff of PICA. maintenance assistant are patent. No aneurysm or arteriovenous malformation is seen. CTA Neck: Right carotid: The right common carotid artery is patent and normal caliber. The carotid bifurcation is normal. No stenosis of the right internal carotid artery per NASCET criteria. The right external carotid artery is patent. Left carotid: The left common carotid artery is patent and normal caliber. Mild atherosclerosis of the carotid bifurcation. No stenosis of the left internal carotid artery per NASCET criteria. The left external carotid artery is patent. Right vertebral: The right vertebral artery is patent and diffusely hypoplastic. Left vertebral: The left vertebral artery is patent and normal caliber. Aberrant origin of the right subclavian artery. The origins of the brachiocephalic and subclavian arteries are normal. No cervical lymphadenopathy. The thyroid gland is normal. The parotid and submandibular glands are normal. The visualized aerodigestive tract is unremarkable. Mild multilevel degenerative disc height loss. Multilevel disc protrusions and marginal osteophytes results in multilevel spinal canal stenosis. Multilevel uncovertebral and facet arthrosis with multilevel neural foraminal narrowing. The visualized portions of the lungs are clear. IMPRESSION: 1. No intracranial large vessel occlusion. 2. No stenosis of the cervical carotid or vertebral arteries. FOR INTERNAL CODING PURPOSES Critical result: Findings discussed with MINA GOMEZ MD at 07/21/2021 9:40 AM. RESULT CODE: (C) PQRS Compliance Statement - Stenosis calculations for CT, MR and conventional angiography are based upon measurement of the distal ICA diameter in accordance with the NASCET methodology. Electronically signed by: Tyrone Christiansen MD (07/21/2021 9:52 AM) [id number] DICTATED and SIGNED BY: TYRONE CHRISTIANSEN MD DATE: 07/21/21 [id number] [facility] [id number] [id number] IMAGING REPORT Signed PATIENT: LUIS BOSS LACCOUNT: [id number] : 1970 LOCATION: ER AGE: 50 SEX: F EXAM STATUS: REG ER ORD. PHYSICIAN: MINA GOMEZ MD REASON: L FACIAL DROOP, L ARM AND LEG WEAKNESS PROCEDURE: CT CODE STROKE HEAD WO CT STROKE HEAD W/O Date: 07/21/2021 9:34 AM Clinical Indication: L FACIAL DROOP, L ARM AND LEG WEAKNESS Comparison: None. Technique: 5 mm axial tomographic images were obtained of the head without contrast. These were viewed on brain and bone windows. One or more of the following dose reduction techniques were utilized: Automated exposure control (AEC), Adjustment of mA and/or kV according to patient size, Use of iterative reconstruction technique such as ASiR, CT scan done according to ALARA and image gently/image wisely Findings: The brain parenchyma is normal in attenuation. No intra- or extra-axial mass or fluid collection. No acute hemorrhage. The ventricles are normal in size, shape, and morphology. The corral-white matter junction is normal. The subarachnoid cisterns are patent. Right frontal recess osteoma. The visualized paranasal sinuses are otherwise normal. The visualized portions of the orbits and globes are normal. The mastoid air cells are clear. The concrete journeyman topogram shows no lytic lesion or fracture. Impression: No acute hemorrhage or large territory corral-white loss. FOR INTERNAL CODING PURPOSES Critical result: Findings discussed with MINA GOMEZ MD at 07/21/2021 9:33 AM. RESULT CODE: (C) Electronically signed by: Tyrone Christiansen MD (07/21/2021 9:42 AM) [id number] DICTATED and SIGNED BY: TYRONE CHRISTIANSEN MD DATE: 07/21/21 [id number] Course & Med Decision Making: Course & Med Decision Making Pertinent Labs and Imaging studies reviewed. (See chart for details) Patient 50-year-old female with history of HTN, HLD, migraines, previous TIAs who presents with left-sided facial droop, and arm/leg heaviness/numbness. LKW 8 AM today. Symptoms have been persistent and have not improved since onset. NIH =4 with exam as described above. CT head and CTA head/neck were unremarkable with no hemorrhage, LVO or high- grade stenosis. Consulted with neurology, Dr. Greenberg, who recommends TPA administration. Discussed this with the patient and discussed risks including intracranial hemorrhage, other sources of bleeding, and angioedema. The patient requested some time to consider this, but ultimately he decided to pursue TPA treatment. Contraindications were reviewed and none were found. Patient will be admitted to the ICU for further monitoring and treatment. Dragon Disclaimer: Dragon Disclaimer: This electronic medical record was generated, in whole or in part, using a voice recognition dictation system. Departure Departure Impression: Primary Impression: CVA (cerebral vascular accident) Disposition: ADMITTED INPATIENT Admitting Physician: SHRUTHI TRUONG) Condition: STABLE Referrals: Miguel Ángel FOUNTAIN MD (PCP) MINA GOMEZ MD Jul 21, 2021 11:17
[2021-07-21 11:35] LABS: CHOLESTEROL/HDL RATIO 3.2
--- NOTE | 2021-07-21 13:03 | PDOC2 ---
NEUROLOGY CONSULT Date of Service DOS: DATE: 07/21/21 TIME: 12:41 Reason for Consult Reason for Consult: Stroke Referring Physician Referring Physician: Hospitalist group Source Source: Caregiver (), Chart review, Patient History of Present Illness History of Present Illness The patient is a 50-year-old right-handed female who noticed left-sided weakness and facial droop at 08:00 this morning. She was in her kitchen and felt like she is about to pass out. She then tried to go to her home office and start her computer, but continued to have symptoms, so she came to the emergency department. I discussed the case with Dr. Meek and we agreed that she is a candidate for alteplase. The patient took about an hour to make up her mind, though, so just started receiving the infusion at 11:00. Her facial weakness is improving, she still has some tingling on the left side. She now has a very mild headache, totally different from her previous migraines. She has been taking a daily aspirin and also her atorvastatin. I saw her in 2017 with a chief complaint of migraines and transient ischemic attacks. She describes throbbing pain with photophonophobia nausea, increase with exertion, but in the last several years she has daily dull aching headaches with only occasional nausea and photophonophobia. She has had several transient ischemic attacks with numbness, aphasia, and most recently was in [place]. I reviewed the 04/06/17 admission during which she saw my associate, Dr. Hannah. on 04/06/17, MRI of the brain, echocardiogram, and carotid Doppler studies were negative. She has also been in for similar episodes as well as a possible seizure, partial-complex, during which she was alert, but just staring into space. Work up there was negative. In addition, the patient has followed with Dr. Frank, last seen him 6 years ago. He had tried her on topiramate, Prozac, Celexa, Lexapro (which caused suicidal ideation), Depakote, lisinopril, sumatriptan, Maxalt, DHE nasal spray, and intravenous DHE during hospital stays. Dr. Hannah tried metoprolol and amitriptyline. I gave her a single injection of Botox, but that did not help. More recently, the patient has been seen at and [facility]. With verbal permission I accessed her charts. She saw Dr. White, cardiology, 04/18/2021. She had been having palpitations after Covid. She had a slightly prolonged QT interval, normal echocardiogram and Holter monitoring. He was going to obtain a tilt table exam and a myocardial MRI. She was in the [facility] emergency department [place] on 12/20/2017 with numbness in the right face and upper extremity, CT head negative. She was admitted to [facility], with negative MRI/a, normal echocardiogram. She was in the [facility] emergency department on 06/10/2021 for left-sided jaw pain, thought to be temporomandibular joint problems. Past Medical History Cardiovascular: Hyperlipidemia, Other (Palpitations) CENTRAL NERVOUS SYSTEM: Migraine, Periperal neuropathy, Vertigo, Other (TMJ) Infectious disease: Other (COVID in Feb 2020) Endocrine: Hypothyroidism Past Surgical History Past Surgical History: Cholecystectomy, , Hysterectomy, Other (Right knee) Family History Family History: Cancer Social History Social History , former smoker, rare alcohol, works at home Current Medications Current Medications Current Medications Sodium Chloride 1,000 ml @ 1,000 mls/hr Q1H IV Last administered on 07/21/21at 09:28; Start 07/21/21 at 09:15; Stop 07/21/21 at 10:14; Status DC Iohexol (Omnipaque 300 Mg/ml) 75 ml 1X ONCE IV Last administered on 07/21/21at 09:36; Start 07/21/21 at 09:45; Stop 07/21/21 at 09:46; Status DC Info (CONTRAST GIVEN -- Rx MONITORING) 1 each PRN DAILY PRN MC SEE COMMENTS; Start 07/21/21 at 09:45; Stop 07/23/21 at 09:44 Alteplase, Recombinant 9 ml @ 540 mls/hr 1X ONCE IV Last administered on 07/21/21at 11:22; Start 07/21/21 at 10:30; Stop 07/21/21 at 10:31; Status DC Alteplase, Recombinant 81 ml @ 81 mls/hr 1X ONCE IV Last administered on 07/21/21at 11:23; Start 07/21/21 at 10:30; Stop 07/21/21 at 11:29; Status DC Sodium Chloride 100 ml @ 100 mls/hr 1X ONCE IV Last administered on 07/21/21at 10:30; Start 07/21/21 at 10:30; Stop 07/21/21 at 11:29; Status DC Labetalol HCl (Normodyne Iv Push) 10 mg PRN Q10MIN PRN IVP HYPERTENSION; Start 07/21/21 at 10:30; Stop 07/21/21 at 11:02; Status DC Nicardipine HCl 50 mg/Sodium Chloride 250 ml @ 25 mls/hr CONT PRN PRN IV HYPERTENSION; Start 07/21/21 at 10:30; Stop 07/21/21 at 11:02; Status DC Labetalol HCl (Normodyne Iv Push) 10 mg PRN Q10MIN PRN IVP HYPERTENSION; Start 07/21/21 at 11:00 Nicardipine HCl 50 mg/Sodium Chloride 250 ml @ 25 mls/hr CONT PRN PRN IV HYPERTENSION; Start 07/21/21 at 11:00 Acetaminophen (Tylenol) 650 mg PRN Q6HRS PRN PO MILD PAIN / TEMP > 100.3'F; St art 07/21/21 at 11:00 Acetaminophen (Tylenol Supp) 650 mg PRN Q6HRS PRN MO MILD PAIN / TEMP > 100.3'F; Start 07/21/21 at 11:00 Ondansetron HCl (Zofran) 4 mg PRN Q6HRS PRN IVP NAUSEA/VOMITING; Start 07/21/21 at 11:00 Active Scripts Active Vitamin C (Ascorbic Acid) 500 Mg Capsule.er 1 Cap PO DAILY 10 Days Vitamin D3 (Cholecalciferol (Vitamin D3)) 100 Mcg Capsule 100 Mcg PO DAILY Zinc 50 Mg Tablet 1 Tab PO DAILY 10 Days Prednisone 50 Mg Tablet 1 Tab PO DAILY Zithromax (Azithromycin) 250 Mg Tablet 1 Pkg PO UD Nbmthxmkccna-DH-Fsmfsni Syrup (Promethazine/Phenyleph/Codeine) 118 Ml Syrup 5 Ml PO Q6-8HRS PRN Fiorinal 50-325-40 Mg Capsule (Butalbital/Aspirin/Caffeine) 1 Each Capsule 1 Each PO QID PRN Metoprolol Tartrate 50 Mg Tablet 50 Mg PO BID 60 Days Aspirin Ec (Aspirin) 81 Mg Tablet.dr 81 Mg PO DAILYWBKFT 30 Days Amitriptyline Hcl 25 Mg Tablet 25 Mg PO QHS 30 Days Levothyroxine Sodium 75 Mcg Tablet 1 Tab PO DAILY Zofran Odt (Ondansetron) 4 Mg Tab.rapdis 1 Tab SL Q8HRS PRN Reported Naproxen 500 Mg Tablet 1 Tab PO QHS Ranitidine Hcl 75 Mg Tablet 100 Mg PO BID PRN Benadryl (Diphenhydramine Hcl) 25 Mg Capsule 100 Mg PO QHS PRN Atorvastatin Calcium 20 Mg Tablet 1 Tab PO DAILY Allergies Allergies: Coded Allergies: acetaminophen (Verified Adverse Reaction, Mild, Nausea and Vomiting, 05/28/21) abdominal cramping hydrocodone (Verified Adverse Reaction, Mild, Nausea and Vomiting, 05/28/21) abdominal cramping meperidine (Verified Adverse Reaction, Mild, Anxiety, 05/28/21) Pt. states it "makes her feel like she's crawling out of her skin" ROS Review of System Negative for fever, chills, weight loss, shortness of breath, chest pain, in digestion, hematochezia, melena, and dysuria. Full 14-point review of systems is negative. Physical Exam Physical Examination General: Well-developed, well-nourished, white female, in no acute distress HEENT: Normocephalic andatraumatic. Temporal arteriespulsatile and nontender. Neck: Supple without bruit, no meningismus Musculoskeletal: Stability:see neurologic. Gait exam:see neurologic. Tone:see neurologic.Strength:see neurologic. Neurological: Mental Status:intact, orientation, memory, attention span/concentration, language, fund of knowledge normal. Cranial Nerves:Pupils equal and reactive to light, extraocular movements areintact, visual bansal are full to confrontation. Facial sensation is normal. There is no facial asymmetry. Vestibulo-ocular reflex is intact. Palate elevates and tongue protrudes in midline. All other cranial related problems are negative except as mentioned before.Reflexes:2+ and symmetric with flexor plantar responses. Motor:5/5 strength with normal tone and bulk. Coordination:Finger-nose finger and xsdl-jk-felk testing are normal. Rapid alternating movements and fine finger movements are intact. Gait:Not tested. Sensory: Patchy left-sided sensory loss Vitals VITALS Vital Signs Date Time Temp Pulse Resp B/P (MAP) Pulse Ox O2 Delivery O2 Flow Rate FiO2 07/21/21 12:03 64 15 116/69 (85) 99 Room Air 07/21/21 09:05 98.5 98.5 Labs Labs Laboratory Tests Test 07/21/21 09:07 07/21/21 09:10 07/21/21 09:33 Glucose (Fingerstick) 121 mg/dL (70-99) Prothrombin Time 11.9 SEC (11.7-14.0) Prothromb Time International Ratio 0.9 (0.8-1.1) Activated Partial Thromboplast Time 31 SEC (24-38) White Blood Count 7.6 x10^3/uL (4.0-11.0) Red Blood Count 4.78 x10^6/uL (3.50-5.40) Hemoglobin 12.4 g/dL (12.0-15.5) Hematocrit 38.4 % (36.0-47.0) Mean Corpuscular Volume 81 fL (79-100) Mean Corpuscular Hemoglobin 26 pg (25-35) Mean Corpuscular Hemoglobin Concent 32 g/dL (31-37) Red Cell Distribution Width 16.2 % (11.5-14.5) Platelet Count 326 x10^3/uL (140-400) Neutrophils (%) (Auto) 54 % (31-73) Lymphocytes (%) (Auto) 35 % (24-48) Monocytes (%) (Auto) 6 % (0-9) Eosinophils (%) (Auto) 3 % (0-3) Basophils (%) (Auto) 1 % (0-3) Neutrophils # (Auto) 4.1 x10^3/uL (1.8-7.7) Lymphocytes # (Auto) 2.7 x10^3/uL (1.0-4.8) Monocytes # (Auto) 0.5 x10^3/uL (0.0-1.1) Eosinophils # (Auto) 0.3 x10^3/uL (0.0-0.7) Basophils # (Auto) 0.1 x10^3/uL (0.0-0.2) Sodium Level 139 mmol/L (136-145) Potassium Level 3.5 mmol/L (3.5-5.1) Chloride Level 104 mmol/L (98-107) Carbon Dioxide Level 27 mmol/L (21-32) Anion Gap 8 (6-14) Blood Urea Nitrogen 12 mg/dL (7-20) Creatinine 0.9 mg/dL (0.6-1.0) Estimated GFR (Cockcroft-Gault) 66.5 Glucose Level 118 mg/dL (70-99) Calcium Level 7.8 mg/dL (8.5-10.1) Troponin I High Sensitivity 19 ng/L (4-50) Triglycerides Level 190 mg/dL (0-150) Cholesterol Level 161 mg/dL (0-200) LDL Cholesterol, Calculated 72 mg/dL (0-100) VLDL Cholesterol, Calculated 38 mg/dL (0-40) Non-HDL Cholesterol Calculated 110 mg/dL (0-129) HDL Cholesterol 51 mg/dL (40-60) Cholesterol/HDL Ratio 3.2 Laboratory Tests Test 07/21/21 09:07 07/21/21 09:10 07/21/21 09:33 Glucose (Fingerstick) 121 mg/dL (70-99) Prothrombin Time 11.9 SEC (11.7-14.0) Prothromb Time International Ratio 0.9 (0.8-1.1) Activated Partial Thromboplast Time 31 SEC (24-38) White Blood Count 7.6 x10^3/uL (4.0-11.0) Red Blood Count 4.78 x10^6/uL (3.50-5.40) Hemoglobin 12.4 g/dL (12.0-15.5) Hematocrit 38.4 % (36.0-47.0) Mean Corpuscular Volume 81 fL (79-100) Mean Corpuscular Hemoglobin 26 pg (25-35) Mean Corpuscular Hemoglobin Concent 32 g/dL (31-37) Red Cell Distribution Width 16.2 % (11.5-14.5) Platelet Count 326 x10^3/uL (140-400) Neutrophils (%) (Auto) 54 % (31-73) Lymphocytes (%) (Auto) 35 % (24-48) Monocytes (%) (Auto) 6 % (0-9) Eosinophils (%) (Auto) 3 % (0-3) Basophils (%) (Auto) 1 % (0-3) Neutrophils # (Auto) 4.1 x10^3/uL (1.8-7.7) Lymphocytes # (Auto) 2.7 x10^3/uL (1.0-4.8) Monocytes # (Auto) 0.5 x10^3/uL (0.0-1.1) Eosinophils # (Auto) 0.3 x10^3/uL (0.0-0.7) Basophils # (Auto) 0.1 x10^3/uL (0.0-0.2) Sodium Level 139 mmol/L (136-145) Potassium Level 3.5 mmol/L (3.5-5.1) Chloride Level 104 mmol/L (98-107) Carbon Dioxide Level 27 mmol/L (21-32) Anion Gap 8 (6-14) Blood Urea Nitrogen 12 mg/dL (7-20) Creatinine 0.9 mg/dL (0.6-1.0) Estimated GFR (Cockcroft-Gault) 66.5 Glucose Level 118 mg/dL (70-99) Calcium Level 7.8 mg/dL (8.5-10.1) Troponin I High Sensitivity 19 ng/L (4-50) Triglycerides Level 190 mg/dL (0-150) Cholesterol Level 161 mg/dL (0-200) LDL Cholesterol, Calculated 72 mg/dL (0-100) VLDL Cholesterol, Calculated 38 mg/dL (0-40) Non-HDL Cholesterol Calculated 110 mg/dL (0-129) HDL Cholesterol 51 mg/dL (40-60) Cholesterol/HDL Ratio 3.[address] STROKE HEAD W/O Date: 07/21/2021 9:34 AM Clinical Indication: L FACIAL DROOP, L ARM AND LEG WEAKNESS Comparison: None. Technique: 5 mm axial tomographic images were obtained of the head without contrast. These were viewed on brain and bone windows. One or more of the following dose reduction techniques were utilized: Automated exposure control (AEC), Adjustment of mA and/or kV according to patient size, Use of iterative reconstruction technique such as ASiR, CT scan done according to ALARA and image gently/image wisely Findings: The brain parenchyma is normal in attenuation. No intra- or extra-axial mass or fluid collection. No acute hemorrhage. The ventricles are normal in size, shape, and morphology. The corral-white matter junction is normal. The subarachnoid cisterns are patent. Right frontal recess osteoma. The visualized paranasal sinuses are otherwise normal. The visualized portions of the orbits and globes are normal. The mastoid air cells are clear. The training project manager topogram shows no lytic lesion or fracture. Impression: No acute hemorrhage or large territory corral-white loss. CTA HEAD AND NECK W/WO CONTRAST DATE: 07/21/2021 9:40 AM INDICATION: L FACIAL DROOP, L ARM AND LEG WEAKNESS TECHNIQUE: CTA angiogram of the head and neck was obtained after IV bolus administration of 75 cc of Omnipaque 300. The images were sent to workstation and multiplanar reconstructions were obtained. Multiplanar reconstruction images to include MIP and 3-D reconstruction images are submitted. One or more of the following dose reduction techniques were utilized: Automated exposure control (AEC), Adjustment of mA and/or kV according to patient size, Use of iterative reconstruction technique such as ASiR, CT scan done according to ALARA and image gently/image wisely COMPARISON: Noncontrast CT head done earlier the same day. FINDINGS: CTA Head: The visualized distal internal carotid arteries, anterior and middle cerebral arteries are patent and normal caliber. origins of the sr. operations manager. Hypoplastic basilar artery. Intracranial vertebral arteries are hypoplastic, markedly so on the right after the takeoff of PICA. sr. operations manager are patent. No aneurysm or arteriovenous malformation is seen. CTA Neck: Right carotid: The right common carotid artery is patent and normal caliber. The carotid bifurcation is normal. No stenosis of the right internal carotid artery per NASCET criteria. The right external carotid artery is patent. Left carotid: The left common carotid artery is patent and normal caliber. Mild atherosclerosis of the carotid bifurcation. No stenosis of the left internal carotid artery per NASCET criteria. The left external carotid artery is patent. Right vertebral: The right vertebral artery is patent and diffusely hypoplastic. Left vertebral: The left vertebral artery is patent and normal caliber. Aberrant origin of the right subclavian artery. The origins of the brachiocephalic and subclavian arteries are normal. No cervical lymphadenopathy. The thyroid gland is normal. The parotid and submandibular glands are normal. The visualized aerodigestive tract is unremarkable. Mild multilevel degenerative disc height loss. Multilevel disc protrusions and marginal osteophytes results in multilevel spinal canal stenosis. Multilevel uncovertebral and facet arthrosis with multilevel neural foraminal narrowing. The visualized portions of the lungs are clear. IMPRESSION: 1. No intracranial large vessel occlusion. 2. No stenosis of the cervical carotid or vertebral arteries. Assessment/Plan Assessment/Plan Impression: One of several of her transient ischemic attacks, she still has persistent neurological deficit, this is the first time that she has received alteplase. This may still be migrainous in nature given the multiple negative work-ups in the past. Hyperlipidemia, hypothyroid, cardiac symptoms possibly from long-haul Covid, history of depression Recommendations: Observe in ICU Echocardiogram and additional cardiac work-up No anticoagulation or antiplatelet agents for 24 hours after alteplase, I then plan to add on clopidogrel to the aspirin Continue statin Rehabilitation screening Fully discussed with patient and her . Thank you for letting me help with the patient's care. AVERY MOTA MD Jul 21, 2021 13:03
--- NOTE | 2021-07-21 13:13 | PDOC1 ---
History and Physical Date of Service: DOS: DATE: 07/21/21 TIME: 12:59 Chief Complaint: Chief Complain: Left-sided weakness History of Present Illness: HPI: History obtained from discussion with the ED physician and chart review: 50 year old female with history of HTN, HLD, multiple previous TIAs, migraines who presents with left-sided weakness and facial droop. Patient states that she was feeling slightly fatigued this morning when she awoke. She went into her kitchen at approximately 8 AM and felt like she may pass out. She dropped onto her knees and then began having left-sided numbness/tingling and heaviness in her extremities. No right-sided symptoms. No speech difficulty or vision changes. She looked in the mirror noticed left- sided facial droop. She came immediately to the emergency department. She is on a daily aspirin, but takes no anticoagulant medications. No recent head trauma or surgeries. No previous history of intracranial hemorrhage. She does state that she has had approximately 3 previous TIAs and they have all improved on their own without treatment. States the latest of them was approximately 2 years ago. Past Medical/Surgical History: PMH/PSH: Past Medical History: Gallstones, High Cholesterol, Hypertension, Migraines, Ovarian Cyst, TIA, covid 19 Past Surgical History: right knee, OOPHORECTOMY Smoking Status: Former Smoker Alcohol Use: Occasionally Drug Use: None Allergies: Allergies: Coded Allergies: acetaminophen (Verified Adverse Reaction, Mild, Nausea and Vomiting, 05/28/21) abdominal cramping hydrocodone (Verified Adverse Reaction, Mild, Nausea and Vomiting, 05/28/21) abdominal cramping meperidine (Verified Adverse Reaction, Mild, Anxiety, 05/28/21) Pt. states it "makes her feel like she's crawling out of her skin" Family History: Family History: Reviewed with no relevant findings in the chart Social History: Social History: Smoking Status: Former Smoker Alcohol Use: Occasionally Drug Use: None Current Medications: Current Medications Current Medications Sodium Chloride 1,000 ml @ 1,000 mls/hr Q1H IV Last administered on 07/21/21at 09:28; Start 07/21/21 at 09:15; Stop 07/21/21 at 10:14; Status DC Iohexol (Omnipaque 300 Mg/ml) 75 ml 1X ONCE IV Last administered on 07/21/21at 09:36; Start 07/21/21 at 09:45; Stop 07/21/21 at 09:46; Status DC Info (CONTRAST GIVEN -- Rx MONITORING) 1 each PRN DAILY PRN MC SEE COMMENTS; Start 07/21/21 at 09:45; Stop 07/23/21 at 09:44 Alteplase, Recombinant 9 ml @ 540 mls/hr 1X ONCE IV Last administered on 07/21/21at 11:22; Start 07/21/21 at 10:30; Stop 07/21/21 at 10:31; Status DC Alteplase, Recombinant 81 ml @ 81 mls/hr 1X ONCE IV Last administered on 07/21/21at 11:23; Start 07/21/21 at 10:30; Stop 07/21/21 at 11:29; Status DC Sodium Chloride 100 ml @ 100 mls/hr 1X ONCE IV Last administered on 07/21/21at 10:30; Start 07/21/21 at 10:30; Stop 07/21/21 at 11:29; Status DC Labetalol HCl (Normodyne Iv Push) 10 mg PRN Q10MIN PRN IVP HYPERTENSION; Start 07/21/21 at 10:30; Stop 07/21/21 at 11:02; Status DC Nicardipine HCl 50 mg/Sodium Chloride 250 ml @ 25 mls/hr CONT PRN PRN IV HYPER TENSION; Start 07/21/21 at 10:30; Stop 07/21/21 at 11:02; Status DC Labetalol HCl (Normodyne Iv Push) 10 mg PRN Q10MIN PRN IVP HYPERTENSION; Start 07/21/21 at 11:00 Nicardipine HCl 50 mg/Sodium Chloride 250 ml @ 25 mls/hr CONT PRN PRN IV HYPERTENSION; Start 07/21/21 at 11:00 Acetaminophen (Tylenol) 650 mg PRN Q6HRS PRN PO MILD PAIN / TEMP > 100.3'F; Start 07/21/21 at 11:00 Acetaminophen (Tylenol Supp) 650 mg PRN Q6HRS PRN MS MILD PAIN / TEMP > 100.3'F; Start 07/21/21 at 11:00 Ondansetron HCl (Zofran) 4 mg PRN Q6HRS PRN IVP NAUSEA/VOMITING; Start 07/21/21 at 11:00 Active Scripts Active Vitamin C (Ascorbic Acid) 500 Mg Capsule.er 1 Cap PO DAILY 10 Days Vitamin D3 (Cholecalciferol (Vitamin D3)) 100 Mcg Capsule 100 Mcg PO DAILY Zinc 50 Mg Tablet 1 Tab PO DAILY 10 Days Prednisone 50 Mg Tablet 1 Tab PO DAILY Zithromax (Azithromycin) 250 Mg Tablet 1 Pkg PO UD Iipmnvjrqcaq-ZW-Sjonnbd Syrup (Promethazine/Phenyleph/Codeine) 118 Ml Syrup 5 Ml PO Q6-8HRS PRN Fiorinal 50-325-40 Mg Capsule (Butalbital/Aspirin/Caffeine) 1 Each Capsule 1 Each PO QID PRN Metoprolol Tartrate 50 Mg Tablet 50 Mg PO BID 60 Days Aspirin Ec (Aspirin) 81 Mg Tablet.dr 81 Mg PO DAILYWBKFT 30 Days Amitriptyline Hcl 25 Mg Tablet 25 Mg PO QHS 30 Days Levothyroxine Sodium 75 Mcg Tablet 1 Tab PO DAILY Zofran Odt (Ondansetron) 4 Mg Tab.rapdis 1 Tab SL Q8HRS PRN Reported Naproxen 500 Mg Tablet 1 Tab PO QHS Ranitidine Hcl 75 Mg Tablet 100 Mg PO BID PRN Benadryl (Diphenhydramine Hcl) 25 Mg Capsule 100 Mg PO QHS PRN Atorvastatin Calcium 20 Mg Tablet 1 Tab PO DAILY ROS: Review of Systems Review of System REVIEW OF SYSTEMS: GENERAL: Denies weakness SKIN: No bruising, hair changes or rashes. EYES: No blurred, double or loss of vision. NOSE AND THROAT: No history of nosebleeds, hoarseness or sore throat. HEART: No history of palpitations, chest pain or shortness of breath on exertion. LUNGS: Denies cough, hemoptysis, wheezing or shortness of breath. GASTROINTESTINAL: Denies changes in appetite, nausea, vomiting, diarrhea or constipation. GENITOURINARY: No history of frequency, urgency, hesitancy or nocturia. NEUROLOGIC: Left-sided weakness PSYCHIATRIC: No history of panic, anxiety or depression. ENDOCRINE: No history of heat or cold intolerance, polyuria or polydipsia. EXTREMITIES: Denies joint pain, pain on walking or stiffness. Physical Exam: Vital Signs: Vital Signs Date Time Temp Pulse Resp B/P (MAP) Pulse Ox O2 Delivery O2 Flow Rate FiO2 07/21/21 12:45 98.1 61 18 150/97 (114) 99 Room Air 98.1 Physcial Exam: General: Well developed, well nourished, no acute distress, well appearing HEENT: Pupils equally round and reactive to light, EOMI, no discharge, normal conjunctiva Neck: Supple, no nuchal rigidity, no JVD, trachea midline, no tenderness Cardiac: RRR, no murmurs, no gallops, no rubs Chest/Lungs: CTAB, no wheeze, no rhonchi, no crackles Abdomen: soft, non-distended, no guarding, no peritoneal signs, non-tender Back: No tenderness Extremities: no edema, pulses intact, non-tender,capillary refill <3 sec bilateral upper and lower extremities, Neuro: GCS 15 Alert, oriented x3 Answers age and month correctly. Follows simple commands blinking eyes and squeezing fist. EOMI and visual bansal intact Left-sided lower facial droop, spares forehead. Left-sided facial sensory changes. Left upper and lower extremity with very mild drift, but does not strike the bed No ataxia Patient consents being touched on the left side, but states that it feels different than the right. No aphasia No dysarthria No inattention NIH =4 Labs: Labs: Laboratory Tests Test 07/21/21 09:07 07/21/21 09:10 07/21/21 09:33 Glucose (Fingerstick) 121 mg/dL (70-99) Prothrombin Time 11.9 SEC (11.7-14.0) Prothromb Time International Ratio 0.9 (0.8-1.1) Activated Partial Thromboplast Time 31 SEC (24-38) White Blood Count 7.6 x10^3/uL (4.0-11.0) Red Blood Count 4.78 x10^6/uL (3.50-5.40) Hemoglobin 12.4 g/dL (12.0-15.5) Hematocrit 38.4 % (36.0-47.0) Mean Corpuscular Volume 81 fL (79-100) Mean Corpuscular Hemoglobin 26 pg (25-35) Mean Corpuscular Hemoglobin Concent 32 g/dL (31-37) Red Cell Distribution Width 16.2 % (11.5-14.5) Platelet Count 326 x10^3/uL (140-400) Neutrophils (%) (Auto) 54 % (31-73) Lymphocytes (%) (Auto) 35 % (24-48) Monocytes (%) (Auto) 6 % (0-9) Eosinophils (%) (Auto) 3 % (0-3) Basophils (%) (Auto) 1 % (0-3) Neutrophils # (Auto) 4.1 x10^3/uL (1.8-7.7) Lymphocytes # (Auto) 2.7 x10^3/uL (1.0-4.8) Monocytes # (Auto) 0.5 x10^3/uL (0.0-1.1) Eosinophils # (Auto) 0.3 x10^3/uL (0.0-0.7) Basophils # (Auto) 0.1 x10^3/uL (0.0-0.2) Sodium Level 139 mmol/L (136-145) Potassium Level 3.5 mmol/L (3.5-5.1) Chloride Level 104 mmol/L (98-107) Carbon Dioxide Level 27 mmol/L (21-32) Anion Gap 8 (6-14) Blood Urea Nitrogen 12 mg/dL (7-20) Creatinine 0.9 mg/dL (0.6-1.0) Estimated GFR (Cockcroft-Gault) 66.5 Glucose Level 118 mg/dL (70-99) Calcium Level 7.8 mg/dL (8.5-10.1) Troponin I High Sensitivity 19 ng/L (4-50) Triglycerides Level 190 mg/dL (0-150) Cholesterol Level 161 mg/dL (0-200) LDL Cholesterol, Calculated 72 mg/dL (0-100) VLDL Cholesterol, Calculated 38 mg/dL (0-40) Non-HDL Cholesterol Calculated 110 mg/dL (0-129) HDL Cholesterol 51 mg/dL (40-60) Cholesterol/HDL Ratio 3.2 Laboratory Tests Test 07/21/21 09:07 07/21/21 09:10 07/21/21 09:33 Glucose (Fingerstick) 121 mg/dL (70-99) Prothrombin Time 11.9 SEC (11.7-14.0) Prothromb Time International Ratio 0.9 (0.8-1.1) Activated Partial Thromboplast Time 31 SEC (24-38) White Blood Count 7.6 x10^3/uL (4.0-11.0) Red Blood Count 4.78 x10^6/uL (3.50-5.40) Hemoglobin 12.4 g/dL (12.0-15.5) Hematocrit 38.4 % (36.0-47.0) Mean Corpuscular Volume 81 fL (79-100) Mean Corpuscular Hemoglobin 26 pg (25-35) Mean Corpuscular Hemoglobin Concent 32 g/dL (31-37) Red Cell Distribution Width 16.2 % (11.5-14.5) Platelet Count 326 x10^3/uL (140-400) Neutrophils (%) (Auto) 54 % (31-73) Lymphocytes (%) (Auto) 35 % (24-48) Monocytes (%) (Auto) 6 % (0-9) Eosinophils (%) (Auto) 3 % (0-3) Basophils (%) (Auto) 1 % (0-3) Neutrophils # (Auto) 4.1 x10^3/uL (1.8-7.7) Lymphocytes # (Auto) 2.7 x10^3/uL (1.0-4.8) Monocytes # (Auto) 0.5 x10^3/uL (0.0-1.1) Eosinophils # (Auto) 0.3 x10^3/uL (0.0-0.7) Basophils # (Auto) 0.1 x10^3/uL (0.0-0.2) Sodium Level 139 mmol/L (136-145) Potassium Level 3.5 mmol/L (3.5-5.1) Chloride Level 104 mmol/L (98-107) Carbon Dioxide Level 27 mmol/L (21-32) Anion Gap 8 (6-14) Blood Urea Nitrogen 12 mg/dL (7-20) Creatinine 0.9 mg/dL (0.6-1.0) Estimated GFR (Cockcroft-Gault) 66.5 Glucose Level 118 mg/dL (70-99) Calcium Level 7.8 mg/dL (8.5-10.1) Troponin I High Sensitivity 19 ng/L (4-50) Triglycerides Level 190 mg/dL (0-150) Cholesterol Level 161 mg/dL (0-200) LDL Cholesterol, Calculated 72 mg/dL (0-100) VLDL Cholesterol, Calculated 38 mg/dL (0-40) Non-HDL Cholesterol Calculated 110 mg/dL (0-129) HDL Cholesterol 51 mg/dL (40-60) Cholesterol/HDL Ratio 3.2 Images: Images PROCEDURE: CT CODE STROKE HEAD WO CT STROKE HEAD W/O Date: 07/21/2021 9:34 AM Clinical Indication: L FACIAL DROOP, L ARM AND LEG WEAKNESS Comparison: None. Technique: 5 mm axial tomographic images were obtained of the head without contrast. These were viewed on brain and bone windows. One or more of the following dose reduction techniques were utilized: Automated exposure control (AEC), Adjustment of mA and/or kV according to patient size, Use of iterative reconstruction technique such as ASiR, CT scan done according to ALARA and image gently/image wisely Findings: The brain parenchyma is normal in attenuation. No intra- or extra-axial mass or fluid collection. No acute hemorrhage. The ventricles are normal in size, shape, and morphology. The corral-white matter junction is normal. The subarachnoid cisterns are patent. Right frontal recess osteoma. The visualized paranasal sinuses are otherwise normal. The visualized portions of the orbits and globes are normal. The mastoid air cells are clear. The wireless architect topogram shows no lytic lesion or fracture. Impression: No acute hemorrhage or large territory corral-white loss. IMPRESSION: 1. No intracranial large vessel occlusion. 2. No stenosis of the cervical carotid or vertebral arteries. Assessment/Plan Assessment/Plan Acute TIA versus ischemic stroke with left-sided weakness History of dyslipidemia History of hypertension History of migraines History of COVID-19 infection Admit to ICU for further management CT head negative for any acute findings Onset of symptoms < 4.5 hours, TPA started upon arrival NIH 4 Admit to medicine for further workup Neuro consult Pending MRI brain, TTE, carotid U/S vs CTA head/neck if suspecting large anterior circulation occulsion within 24 hours of presentation of symptoms continue telemonitoring for at least 24 hours contine IVF while NPO maintain normoglycemia with goals of 140-180 permissive HTN with goals between 140-180/90-105 for at least 24 hours if tPA administered, maintain BP goals < 180/105 for at least 24 hours We will start on aspirin and Plavix after 24 hours continue high intensity statins pending PT/OT/speech Full code DPOA is the A total of 45 minutes of critical care time was spent in reviewing chart, labs, and images. Discussed with RN and SW. Justifications for Admission Other Justification HARSH VALERO MD Jul 21, 2021 13:13
--- NOTE | 2021-07-21 13:28 | EKG ---
[facility] [address] [place] [address] Test Date: 2021-07-21 Test Time: 09:31:38 Pat Name: LUIS BOSS Department: Room: [facility] Gender: F Engineering Officer: : 1970 Requested By: MINA GOMEZ Order Number: [id number] Reading MD: Fabrice Garg Measurements Intervals [place] Rate: 70 P: 59 IA: 180 QRS: 47 QRSD: 92 T: 105 QT: 418 QTc: 454 Interpretive Statements SINUS RHYTHM NORMAL ECG RI6.02 Compared to ECG 05/28/2021 16:55:55 No significant changes Electronically Signed On 07-22-2021 19:36:52 DAY GUARD by Fabrice Garg
[2021-07-21] MEDS ORDERED: DILT180T7 PO (15:59)
[2021-07-21] MEDS ORDERED: LEVO125T77 PO (15:59)
[2021-07-21] MEDS ORDERED: TRAZ150T49 PO (15:59)
[2021-07-21] MEDS ORDERED: DIPH25CA58 PO (15:59)
[2021-07-21] MEDS ORDERED: ONDANSETRON ODT 4 MG TAB.RAPDIS. PO PRN (16:00)
[2021-07-21] MEDS ORDERED: diphenhydrAMINE HCL 25 MG CAPSULE PO SCH (21:00)
[2021-07-21] MEDS ORDERED: CHOLECALCIFEROL (VITAMIN D3) 1,000 UNIT TABLET PO SCH (21:00)
[2021-07-21] MEDS ORDERED: traZODone 50 MG TABLET. PO SCH (21:00)
[2021-07-21] MEDS ORDERED: ATORVASTATIN CALCIUM 20 MG TABLET PO SCH (21:00)
[2021-07-22] VITALS (9 sets, daily range): BP systolic 102–153; BP diastolic 53–103
[2021-07-22 01:12] LABS: HEMOGLOBIN A1C 6.1 % (4.8-5.6)
[2021-07-22] MEDS ORDERED: LEVOTHYROXINE 125 MCG TABLET PO SCH (06:00)
--- NOTE | 2021-07-22 08:54 | PDOC ---
[facility] [facility] PROGRESS NOTE Date of Service DOS: DATE: 07/22/21 TIME: 08:53 Chief Complaint Chief Complaint Stroke status post TPA History of the following Gallstones, High Cholesterol, Hypertension, Migraines, Ovarian Cyst, TIA, covid 19 Past Surgical History: right knee, OOPHORECTOMY Smoking Status: Former Smoker History of Present Illness History of Present Illness 07/22/2021 Patient seen and examined in the ICU She is doing great this morning Talkative and smiling Discussed with RN Suspect after MRI she could go to a monitored bed Vitals/I&O Vitals/I&O: Vital Signs Date Time Temp Pulse Resp B/P (MAP) Pulse Ox O2 Delivery O2 Flow Rate FiO2 07/22/21 07:00 72 16 132/72 (92) 97 Room Air 07/22/21 04:00 96.8 96.8 I & O 07/21/21 07/21/21 07/22/21 15:00 23:00 07:00 Intake Total 81 ml 600 ml 980 ml Output Total 1200 ml 700 ml 800 ml Balance -1119 ml -100 ml 180 ml Physical Exam General: Alert, Oriented X3, Cooperative Heart: Regular rate Lungs: Clear Abdomen: Normal bowel sounds Extremities: No clubbing Skin: No rashes Labs Labs: Laboratory Tests Test 07/21/21 09:07 07/21/21 09:10 07/21/21 09:33 Glucose (Fingerstick) 121 mg/dL (70-99) Prothrombin Time 11.9 SEC (11.7-14.0) Prothromb Time International Ratio 0.9 (0.8-1.1) Activated Partial Thromboplast Time 31 SEC (24-38) White Blood Count 7.6 x10^3/uL (4.0-11.0) Red Blood Count 4.78 x10^6/uL (3.50-5.40) Hemoglobin 12.4 g/dL (12.0-15.5) Hematocrit 38.4 % (36.0-47.0) Mean Corpuscular Volume 81 fL (79-100) Mean Corpuscular Hemoglobin 26 pg (25-35) Mean Corpuscular Hemoglobin Concent 32 g/dL (31-37) Red Cell Distribution Width 16.2 % (11.5-14.5) Platelet Count 326 x10^3/uL (140-400) Neutrophils (%) (Auto) 54 % (31-73) Lymphocytes (%) (Auto) 35 % (24-48) Monocytes (%) (Auto) 6 % (0-9) Eosinophils (%) (Auto) 3 % (0-3) Basophils (%) (Auto) 1 % (0-3) Neutrophils # (Auto) 4.1 x10^3/uL (1.8-7.7) Lymphocytes # (Auto) 2.7 x10^3/uL (1.0-4.8) Monocytes # (Auto) 0.5 x10^3/uL (0.0-1.1) Eosinophils # (Auto) 0.3 x10^3/uL (0.0-0.7) Basophils # (Auto) 0.1 x10^3/uL (0.0-0.2) Sodium Level 139 mmol/L (136-145) Potassium Level 3.5 mmol/L (3.5-5.1) Chloride Level 104 mmol/L (98-107) Carbon Dioxide Level 27 mmol/L (21-32) Anion Gap 8 (6-14) Blood Urea Nitrogen 12 mg/dL (7-20) Creatinine 0.9 mg/dL (0.6-1.0) Estimated GFR (Cockcroft-Gault) 66.5 Glucose Level 118 mg/dL (70-99) Hemoglobin A1c 6.1 % (4.8-5.6) Calcium Level 7.8 mg/dL (8.5-10.1) Troponin I High Sensitivity 19 ng/L (4-50) Triglycerides Level 190 mg/dL (0-150) Cholesterol Level 161 mg/dL (0-200) LDL Cholesterol, Calculated 72 mg/dL (0-100) VLDL Cholesterol, Calculated 38 mg/dL (0-40) Non-HDL Cholesterol Calculated 110 mg/dL (0-129) HDL Cholesterol 51 mg/dL (40-60) Cholesterol/HDL Ratio 3.2 Assessment and Plan Assessmemt and Plan Problems Medical Problems: (1) CVA (cerebral vascular accident) Status: Acute Stroke status post TPA History of the following Gallstones, High Cholesterol, Hypertension, Migraines, Ovarian Cyst, TIA, covid 19 Past Surgical History: right knee, OOPHORECTOMY Smoking Status: Former Smoker Plan Going for MRI today Appreciate neurology input Transfer to monitored bed after MRI Home meds DVT prophylaxis Full code Comment Review of Relevant I have reviewed the following items wanda (where applicable) has been applied. Medications: Current Medications Medications (Trade) Dose Ordered Sig/Albert Route PRN Reason Start Time Stop Time Status Last Admin Dose Admin Sodium Chloride 1,000 ml @ 1,000 mls/hr Q1H IV 07/21/21 09:15 07/21/21 10:14 DC 07/21/21 09:28 Iohexol (Omnipaque 300 Mg/ml) 75 ml 1X ONCE IV 07/21/21 09:45 07/21/21 09:46 DC 07/21/21 09:36 Alteplase, Recombinant 9 ml @ 540 mls/hr 1X ONCE IV 07/21/21 10:30 07/21/21 10:31 DC 07/21/21 11:22 Alteplase, Recombinant 81 ml @ 81 mls/hr 1X ONCE IV 07/21/21 10:30 07/21/21 11:29 DC 07/21/21 11:23 Sodium Chloride 100 ml @ 100 mls/hr 1X ONCE IV 07/21/21 10:30 07/21/21 11:29 DC 07/21/21 10:30 Acetaminophen (Tylenol) 650 mg PRN Q6HRS PRN PO MILD PAIN / TEMP > 100.3'F 07/21/21 11:00 07/22/21 05:47 Atorvastatin Calcium (Lipitor) 20 mg QHS PO 07/21/21 21:00 07/21/21 21:32 Vitamin D (Vitamin D3) 4,000 unit QHS PO 07/21/21 21:00 07/21/21 21:33 Diphenhydramine HCl (Benadryl) 50 mg QHS PO 07/21/21 21:00 07/21/21 21:31 Levothyroxine Sodium (Synthroid) 125 mcg DAILY06 PO 07/22/21 06:00 07/22/21 05:36 Diltiazem HCl (Cardizem 24hr Cd) 180 mg QHS PO 07/21/21 21:00 07/21/21 21:32 Trazodone HCl (Desyrel) 150 mg QHS PO 07/21/21 21:00 07/21/21 21:32 Justifications for Admission Other Justification DOV GREENBERG III DO Jul 22, 2021 08:54
--- NOTE | 2021-07-22 08:58 | PDOC ---
PROGRESS NOTES Date of Service DATE: 07/22/21 TIME: 08:54 Assessment Problems Medical Problems: (1) CVA (cerebral vascular accident) Status: Acute One of several of her transient ischemic attacks, neurological deficit has resolved, status-post alteplase. This may still be migrainous in nature given the multiple negative work-ups in the past. 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 I would suggest a transesophageal echocardiogram and implantable manager monitoring If MRI negative for hemorrhage, add on clopidogrel to the aspirin Continue statin, as lipid profile shows a good cholesterol level, just elevated triglycerides, defer management to her primary physician. I told the patient to redouble her efforts to pursue a low-fat diet Rehabilitation screening Okay for discharge if MRI negative Follow-up with me as needed Subjective Had a mild headache overnight, feels fine now, all neurological issues have resolved Objective Vital Signs Date Time Temp Pulse Resp B/P (MAP) Pulse Ox O2 Delivery O2 Flow Rate FiO2 07/22/21 07:00 72 16 132/72 (92) 97 Room Air 07/22/21 04:00 96.8 96.8 Intake and Output 07/22/21 07:00 Intake Total 1661 ml Output Total 2700 ml Balance -1039 ml Intake Oral 1580 ml IV Total 81 ml Output Urine Total 2700 ml Stool Total 0 ml PHYSICAL EXAM Alert. Oriented to time, place and person. PERRL. EOMI. CN: no focal findings. Muscle tone: normal. Muscle strength: 5/5 DTR: 2+ Plantar reflex: Flexor Gait: not examined in bed. Sensory exam: no abnormal findings. No cerebellar signs elicited. Review of Relevant I have reviewed the following items wanda (where applicable) has been applied. Labs Laboratory Tests Test 07/21/21 09:07 07/21/21 09:10 07/21/21 09:33 Glucose (Fingerstick) 121 mg/dL (70-99) Prothrombin Time 11.9 SEC (11.7-14.0) Prothromb Time International Ratio 0.9 (0.8-1.1) Activated Partial Thromboplast Time 31 SEC (24-38) White Blood Count 7.6 x10^3/uL (4.0-11.0) Red Blood Count 4.78 x10^6/uL (3.50-5.40) Hemoglobin 12.4 g/dL (12.0-15.5) Hematocrit 38.4 % (36.0-47.0) Mean Corpuscular Volume 81 fL (79-100) Mean Corpuscular Hemoglobin 26 pg (25-35) Mean Corpuscular Hemoglobin Concent 32 g/dL (31-37) Red Cell Distribution Width 16.2 % (11.5-14.5) Platelet Count 326 x10^3/uL (140-400) Neutrophils (%) (Auto) 54 % (31-73) Lymphocytes (%) (Auto) 35 % (24-48) Monocytes (%) (Auto) 6 % (0-9) Eosinophils (%) (Auto) 3 % (0-3) Basophils (%) (Auto) 1 % (0-3) Neutrophils # (Auto) 4.1 x10^3/uL (1.8-7.7) Lymphocytes # (Auto) 2.7 x10^3/uL (1.0-4.8) Monocytes # (Auto) 0.5 x10^3/uL (0.0-1.1) Eosinophils # (Auto) 0.3 x10^3/uL (0.0-0.7) Basophils # (Auto) 0.1 x10^3/uL (0.0-0.2) Sodium Level 139 mmol/L (136-145) Potassium Level 3.5 mmol/L (3.5-5.1) Chloride Level 104 mmol/L (98-107) Carbon Dioxide Level 27 mmol/L (21-32) Anion Gap 8 (6-14) Blood Urea Nitrogen 12 mg/dL (7-20) Creatinine 0.9 mg/dL (0.6-1.0) Estimated GFR (Cockcroft-Gault) 66.5 Glucose Level 118 mg/dL (70-99) Hemoglobin A1c 6.1 % (4.8-5.6) Calcium Level 7.8 mg/dL (8.5-10.1) Troponin I High Sensitivity 19 ng/L (4-50) Triglycerides Level 190 mg/dL (0-150) Cholesterol Level 161 mg/dL (0-200) LDL Cholesterol, Calculated 72 mg/dL (0-100) VLDL Cholesterol, Calculated 38 mg/dL (0-40) Non-HDL Cholesterol Calculated 110 mg/dL (0-129) HDL Cholesterol 51 mg/dL (40-60) Cholesterol/HDL Ratio 3.2 Laboratory Tests Test 07/21/21 09:07 07/21/21 09:10 07/21/21 09:33 Glucose (Fingerstick) 121 mg/dL (70-99) Prothrombin Time 11.9 SEC (11.7-14.0) Prothromb Time International Ratio 0.9 (0.8-1.1) Activated Partial Thromboplast Time 31 SEC (24-38) White Blood Count 7.6 x10^3/uL (4.0-11.0) Red Blood Count 4.78 x10^6/uL (3.50-5.40) Hemoglobin 12.4 g/dL (12.0-15.5) Hematocrit 38.4 % (36.0-47.0) Mean Corpuscular Volume 81 fL (79-100) Mean Corpuscular Hemoglobin 26 pg (25-35) Mean Corpuscular Hemoglobin Concent 32 g/dL (31-37) Red Cell Distribution Width 16.2 % (11.5-14.5) Platelet Count 326 x10^3/uL (140-400) Neutrophils (%) (Auto) 54 % (31-73) Lymphocytes (%) (Auto) 35 % (24-48) Monocytes (%) (Auto) 6 % (0-9) Eosinophils (%) (Auto) 3 % (0-3) Basophils (%) (Auto) 1 % (0-3) Neutrophils # (Auto) 4.1 x10^3/uL (1.8-7.7) Lymphocytes # (Auto) 2.7 x10^3/uL (1.0-4.8) Monocytes # (Auto) 0.5 x10^3/uL (0.0-1.1) Eosinophils # (Auto) 0.3 x10^3/uL (0.0-0.7) Basophils # (Auto) 0.1 x10^3/uL (0.0-0.2) Sodium Level 139 mmol/L (136-145) Potassium Level 3.5 mmol/L (3.5-5.1) Chloride Level 104 mmol/L (98-107) Carbon Dioxide Level 27 mmol/L (21-32) Anion Gap 8 (6-14) Blood Urea Nitrogen 12 mg/dL (7-20) Creatinine 0.9 mg/dL (0.6-1.0) Estimated GFR (Cockcroft-Gault) 66.5 Glucose Level 118 mg/dL (70-99) Hemoglobin A1c 6.1 % (4.8-5.6) Calcium Level 7.8 mg/dL (8.5-10.1) Troponin I High Sensitivity 19 ng/L (4-50) Triglycerides Level 190 mg/dL (0-150) Cholesterol Level 161 mg/dL (0-200) LDL Cholesterol, Calculated 72 mg/dL (0-100) VLDL Cholesterol, Calculated 38 mg/dL (0-40) Non-HDL Cholesterol Calculated 110 mg/dL (0-129) HDL Cholesterol 51 mg/dL (40-60) Cholesterol/HDL Ratio 3.2 Medications Current Medications Sodium Chloride 1,000 ml @ 1,000 mls/hr Q1H IV Last administered on 07/21/21at 09:28; Start 07/21/21 at 09:15; Stop 07/21/21 at 10:14; Status DC Iohexol (Omnipaque 300 Mg/ml) 75 ml 1X ONCE IV Last administered on 07/21/21at 09:36; Start 07/21/21 at 09:45; Stop 07/21/21 at 09:46; Status DC Info (CONTRAST GIVEN -- Rx MONITORING) 1 each PRN DAILY PRN MC SEE COMMENTS; Start 07/21/21 at 09:45; Stop 07/23/21 at 09:44 Alteplase, Recombinant 9 ml @ 540 mls/hr 1X ONCE IV Last administered on 06/28 11/15at 11:22; Start 07/21/21 at 10:30; Stop 07/21/21 at 10:31; Status DC Alteplase, Recombinant 81 ml @ 81 mls/hr 1X ONCE IV Last administered on 07/21/21at 11:23; Start 07/21/21 at 10:30; Stop 07/21/21 at 11:29; Status DC Sodium Chloride 100 ml @ 100 mls/hr 1X ONCE IV Last administered on 07/21/21at 10:30; Start 07/21/21 at 10:30; Stop 07/21/21 at 11:29; Status DC Labetalol HCl (Normodyne Iv Push) 10 mg PRN Q10MIN PRN IVP HYPERTENSION; Start 07/21/21 at 10:30; Stop 07/21/21 at 11:02; Status DC Nicardipine HCl 50 mg/Sodium Chloride 250 ml @ 25 mls/hr CONT PRN PRN IV HYPERTENSION; Start 07/21/21 at 10:30; Stop 07/21/21 at 11:02; Status DC Labetalol HCl (Normodyne Iv Push) 10 mg PRN Q10MIN PRN IVP HYPERTENSION; Start 07/21/21 at 11:00 Nicardipine HCl 50 mg/Sodium Chloride 250 ml @ 25 mls/hr CONT PRN PRN IV HYPERTENSION; Start 07/21/21 at 11:00 Acetaminophen (Tylenol) 650 mg PRN Q6HRS PRN PO MILD PAIN / TEMP > 100.3'F Last administered on 07/22/21at 05:47; Start 07/21/21 at 11:00 Acetaminophen (Tylenol Supp) 650 mg PRN Q6HRS PRN GA MILD PAIN / TEMP > 100.3'F; Start 07/21/21 at 11:00 Ondansetron HCl (Zofran) 4 mg PRN Q6HRS PRN IVP NAUSEA/VOMITING; Start 07/21/21 at 11:00 Aspirin (Ecotrin) 81 mg DAILYWBKFT PO ; Start 07/22/21 at 13:00 Atorvastatin Calcium (Lipitor) 20 mg QHS PO Last administered on 07/21/21at 21:32; Start 07/21/21 at 21:00 Ondansetron HCl (Zofran Odt) 4 mg PRN Q8HRS PRN PO NAUSEA/VOMITING; Start 07/21/21 at 16:00 Vitamin D (Vitamin D3) 4,000 unit QHS PO Last administered on 07/21/21at 21:33; Start 07/21/21 at 21:00 Diphenhydramine HCl (Benadryl) 50 mg QHS PO Last administered on 07/21/21at 21:31; Start 07/21/21 at 21:00 Levothyroxine Sodium (Synthroid) 125 mcg DAILY06 PO Last administered on 07/22/21at 05:36; Start 07/22/21 at 06:00 Diltiazem HCl (Cardizem 24hr Cd) 180 mg QHS PO Last administered on 07/21/21at 21:32; Start 07/21/21 at 21:00 Trazodone HCl (Desyrel) 150 mg QHS PO Last administered on 07/21/21at 21:32; Start 07/21/21 at 21:00 Active Scripts Active Vitamin C (Ascorbic Acid) 500 Mg Capsule.er 1 Cap PO DAILY 10 Days Vitamin D3 (Cholecalciferol (Vitamin D3)) 100 Mcg Capsule 100 Mcg PO DAILY Zinc 50 Mg Tablet 1 Tab PO DAILY 10 Days Prednisone 50 Mg Tablet 1 Tab PO DAILY Zithromax (Azithromycin) 250 Mg Tablet 1 Pkg PO UD Qcnbnwwtxpiw-UK-Gzskref Syrup (Promethazine/Phenyleph/Codeine) 118 Ml Syrup 5 Ml PO Q6-8HRS PRN Fiorinal 50-325-40 Mg Capsule (Butalbital/Aspirin/Caffeine) 1 Each Capsule 1 Each PO QID PRN Metoprolol Tartrate 50 Mg Tablet 50 Mg PO BID 60 Days Aspirin Ec (Aspirin) 81 Mg Tablet.dr 81 Mg PO DAILYWBKFT 30 Days Amitriptyline Hcl 25 Mg Tablet 25 Mg PO QHS 30 Days Levothyroxine Sodium 75 Mcg Tablet 1 Tab PO DAILY Zofran Odt (Ondansetron) 4 Mg Tab.rapdis 1 Tab SL Q8HRS PRN Reported Benadryl (Diphenhydramine Hcl) 25 Mg Capsule 2 Cap PO QHS 30 Days Euthyrox (Levothyroxine Sodium) 125 Mcg Tablet 125 Mcg PO DAILY06 Diltiazem 24Hr ER (LA) (Diltiazem HCl) 180 Mg Tab.er.24h 1 Tab PO DAILY 30 Days Trazodone Hcl 150 Mg Tablet 1 Tab PO QHS 30 Days Naproxen 500 Mg Tablet 1 Tab PO QHS Ranitidine Hcl 75 Mg Tablet 100 Mg PO BID PRN Atorvastatin Calcium 20 Mg Tablet 1 Tab PO DAILY Vitals/I & O Vital Sign - Last 24 Hours 07/21/21 07/21/21 07/21/21 07/21/21 09:03 09:05 09:24 09:33 Temp 98.5 98.5 98.5 98.5 Pulse 72 72 72 68 Resp 18 18 18 16 B/P (MAP) 145/57 (86) 145/57 (86) 126/64 (84) 139/57 (84) Pulse Ox 99 99 99 100 O2 Delivery Room Air Room Air Room Air Room Air 07/21/21 07/21/21 07/21/21 07/21/21 09:48 10:04 10:18 10:33 Pulse 76 68 72 70 Resp 18 23 23 19 B/P (MAP) 140/69 (92) 125/71 (89) 132/74 (93) 148/79 (102) Pulse Ox 100 100 100 100 O2 Delivery Room Air Room Air Room Air Room Air 07/21/21 07/21/21 07/21/21 07/21/21 10:48 11:18 11:23 11:48 Pulse 64 66 60 72 Resp 20 23 15 15 B/P (MAP) 139/76 (97) 148/71 (96) 114/71 (85) 145/68 (93) Pulse Ox 100 100 100 99 O2 Delivery Room Air Room Air Room Air Room Air 07/21/21 07/21/21 07/21/21 07/21/21 12:03 12:18 12:45 13:00 Temp 98.1 98.1 Pulse 64 64 61 56 Resp 15 17 18 20 B/P (MAP) 116/69 (85) 95/48 (64) 150/97 (114) 141/83 (102) Pulse Ox 99 99 99 99 O2 Delivery Room Air Room Air Room Air Room Air 07/21/21 07/21/21 07/21/21 07/21/21 13:15 13:30 13:45 14:00 Pulse 61 60 61 70 Resp 18 20 18 16 B/P (MAP) 154/89 (110) 149/91 (110) 155/96 (115) 149/85 (106) Pulse Ox 99 98 99 98 O2 Delivery Room Air Room Air Room Air Room Air 07/21/21 07/21/21 07/21/21 07/21/21 14:15 14:30 15:00 15:30 Pulse 70 60 69 63 Resp 18 18 20 B/P (MAP) 152/90 (110) 143/90 (107) 167/83 (111) 132/69 (90) Pulse Ox 99 99 96 98 O2 Delivery Room Air Room Air Room Air 07/21/21 07/21/21 07/21/21 07/21/21 16:00 16:30 17:00 17:30 Pulse 59 60 69 65 B/P (MAP) 129/78 (95) 153/84 (107) 157/83 (107) 145/79 (101) Pulse Ox 98 99 99 98 07/21/21 07/21/21 07/21/21 07/21/21 18:00 18:30 19:00 19:53 Temp 98.3 98.3 Pulse 57 60 75 Resp 16 16 20 B/P (MAP) 164/80 (108) 155/80 (105) 160/72 (101) Pulse Ox 98 98 100 O2 Delivery Room Air Room Air Room Air Room Air 07/21/21 07/21/21 07/21/21 07/21/21 20:00 21:21 21:32 22:13 Pulse 64 62 62 58 Resp 20 20 B/P (MAP) 170/70 (103) 167/95 (119) 167/95 124/83 (97) Pulse Ox 100 98 97 O2 Delivery Room Air Room Air Room Air 07/22/21 07/22/21 07/22/21 07/22/21 00:01 01:08 04:00 05:31 Temp 96.8 96.8 Pulse 55 63 57 78 Resp 20 20 16 16 B/P (MAP) 129/53 (78) 127/56 (79) 107/54 (71) 102/60 (74) Pulse Ox 98 96 96 99 O2 Delivery Room Air Room Air Room Air Room Air 07/22/21 07/22/21 06:03 07:00 Pulse 78 72 Resp 16 16 B/P (MAP) 102/60 (74) 132/72 (92) Pulse Ox 99 97 O2 Delivery Room Air Room Air Intake and Output 07/21/21 07/21/21 07/22/21 15:00 23:00 07:00 Intake Total 81 ml 600 ml 980 ml Output Total 1200 ml 700 ml 800 ml Balance -1119 ml -100 ml 180 ml Justicifation of Admission Dx: Justifications for Admission: Justification of Admission Dx: N/A AVERY MOTA MD Jul 22, 2021 08:58
--- NOTE | 2021-07-22 11:33 | RAD ---
MRI BRAIN WO Date: 07/22/2021 10:35 AM Indication: F/U TIA, p alteplace / Spl. Instructions: / History: Comparison: CT 07/21/2021. Technique: Multiplanar multisequence MRI of the brain was performed without intravenous contrast usin g the standard protocol. Findings: No acute infarct. No acute or chronic hemorrhage. The ventricles are normal in size and configuration without hydrocephalus. Minimal scattered FLAIR hyperintensities in the subcortical and periventricul ar deep white matter, a nonspecific finding, appropriate for patient age. The scalp and calvarium are normal. The pituitary and sella are normal. No Chiari malformation. The v isualized upper cervical spine is normal. The visualized orbits and globes are normal. The visualized paranasal sinuses are clear. The mastoid air cells are clear. Normal flow voids within the vertebral, basilar, and internal carotid arteries indicating patency. IMPRESSION: No acute infarct, acute hemorrhage, mass, or hydrocephalus. Electronically signed by: Elpidio Christiansen MD (07/22/2021 11:31 AM) [id number]
[2021-07-22] MEDS ORDERED: CLOPIDOGREL BISULFATE 75 MG TABLET PO SCH (12:30)
[2021-07-22] MEDS ORDERED: ASPIRIN ENTERIC COATED 81 MG TABLET.DR. PO SCH (13:00)
[2021-07-22] MEDS ORDERED: CLOP75TA PO ×3 (13:39→14:06)
--- NOTE | 2021-07-23 12:11 | DS ---
DATE OF DISCHARGE: 07/22/2021 ADMITTING DIAGNOSIS: Possible stroke. DISCHARGE DIAGNOSES: Resolving stroke symptoms, suspect possible migraines. CONSULTS: Neurology. HOSPITAL COURSE: The patient is a pleasant 50-year-old female who presented with some stroke symptoms. She did get TPA. She was admitted to the ICU. Yesterday, I saw and examined her. She is doing much better. We did an MRI that did not show any acute disease. The nurse called me and explained that Neurology was okay with the patient going home. We discharged her home. DISPOSITION: Home. ACTIVITY: As tolerated. DIET: Low sodium. DISCHARGE MEDICATIONS: Please see the MRAD. TOTAL TIME: [address]: Fabienne TID: [id number]
== END 2021-07-22 14:20 | disposition home or self-care (01) | DRG 103 ==
LOC: ER 08:57 → 1 WEST ICU 11:22
PROVIDERS: ADMIT Internal Medicine; ATTEND Internal Medicine
DX: G43.909 Migraine, unspecified, not intractable, without status migrainosus (principal); R45.851 Suicidal ideations; G81.94 Hemiplegia, unspecified affecting left nondominant side; R47.01 Aphasia; E03.9 Hypothyroidism, unspecified; E78.00 Pure hypercholesterolemia, unspecified; E78.5 Hyperlipidemia, unspecified; I10 Essential (primary) hypertension; K80.20 Calculus of gallbladder without cholecystitis without obstruction; N83.209 Unspecified ovarian cyst, unspecified side; Z86.16 Personal history of COVID-19; Z86.73 Personal history of transient ischemic attack (TIA), and cerebral infarction without residual deficits; Z87.891 Personal history of nicotine dependence; Z90.710 Acquired absence of both cervix and uterus; F32.A Depression, unspecified; G62.9 Polyneuropathy, unspecified; Z88.8 Allergy status to other drugs, medicaments and biological substances
CPT/HCPCS: 36415; 37195; 70450; 70496; 70498; 70551; 80048; 80061; 82962; 83036; 84484; 85025; 85610; 85730; 93005; 96365; J2997; J7030; Q9967; 92610-GN; 99285-25; G0378; Q0163

== ENCOUNTER 2021-07-25 20:35 | Emergency (ER) | payer OTHER ==
[~2021-07-25] VITALS: Ht 160 cm; Wt 103.0 kg
[~2021-07-25 20:35] MED LIST changes: +CLOP75TA PO; +DILT180T7 PO; +LEVO125T77 PO; +TRAZ150T49 PO
[2021-07-25 21:07] LABS: BASO # 0.1 x10^3/uL (0.0-0.2); BASO % 1 % (0-3); EOS # 0.2 x10^3/uL (0.0-0.7); EOS % 2 % (0-3); HEMATOCRIT 37.2 % (36.0-47.0); HEMOGLOBIN 12.4 g/dL (12.0-15.5); LYMPH # 3.4 x10^3/uL (1.0-4.8); LYMPH % 32 % (24-48); MEAN CORPUSCULAR HEMOGLOBIN 27 pg (25-35); MEAN CORPUSCULAR HGB CONC 33 g/dL (31-37); MEAN CORPUSCULAR VOLUME 80 fL (79-100); MONO # 0.7 x10^3/uL (0.0-1.1); MONO % 6 % (0-9); NEUT # 6.4 x10^3/uL (1.8-7.7); NEUT % 60 % (31-73); PLATELET COUNT 319 x10^3/uL (140-400); RED BLOOD COUNT 4.66 x10^6/uL (3.50-5.40); RED CELL DISTRIBUTION WIDTH 15.3 % (11.5-14.5); WHITE BLOOD COUNT 10.8 x10^3/uL (4.0-11.0)
--- NOTE | 2021-07-25 21:13 | RAD ---
CT STROKE HEAD W/O History: Reason: stroke / Spl. Instructions: / History: Comparison: July 21, 2021 Technique: Noncontrast CT imaging was performed of the head. Exposure: One or more of the following individualized dose reduction techniques were utilized for thi s examination: 1. Automated exposure control 2. Adjustment of the mA and/or kV according to patient size 3. Use of iterative reconstruction technique. Findings: No intracranial hemorrhage. No mass effect. No hydrocephalus. Extra-axial spaces are unremarkable. Imaged orbits are unremarkable. Imaged paranasal sinuses and mastoid air cells are clear. No acute ca lvarial fracture. Impression: 1. No acute intracranial abnormality. FOR INTERNAL CODING PURPOSES Critical result: Findings discussed with ANGÉLICA STARKS DO at 07/25/2021 9:09 PM. RESULT CODE: (C) Electronically signed by: Henry Zaidi DO (07/25/2021 9:11 PM) [facility] [place]
[2021-07-25 21:18] LABS: PROTHROMBIN TIME PATIENT 12.4 SEC (11.7-14.0)
[2021-07-25 21:21] LABS: CALCIUM 8.7 mg/dL (8.5-10.1); CREATININE 0.9 mg/dL (0.6-1.0); GFR 66.5; POTASSIUM 3.3 mmol/L (3.5-5.1)
--- NOTE | 2021-07-25 21:43 | PHYS DOC ---
Past Medical History Past Medical History: Gallstones, High Cholesterol, Hypertension, Migraines, Ovarian Cyst, TIA Additional Past Medical Histor: covid 19 Past Surgical History: No Surgical History Additional Past Surgical Histo: right knee, OOPHORECTOMY Smoking Status: Former Smoker Alcohol Use: Occasionally Drug Use: None NIHSS Stroke Scale NIH Stroke Scale: NIH Stroke Scale Response (Comments) Value Level of Consciousness: 0 Alert/Responsive 0 LOC Questions: 0 Answers both correctly 0 LOC Commands: 0 Performs both tasks 0 Best Gaze: 0 Normal 0 Visual: 0 No visual loss 0 Facial Palsy: 0 Normal, symmetrical 0 Motor - Left Arm 0 No drift 0 Motor - Right Arm 0 No drift 0 Motor - Left Leg 0 No drift 0 Motor: Right Leg 0 No drift 0 Limb Ataxia: 0 Absent 0 Sensory: 0 No loss 0 Best Language: 0 Normal 0 Dysathria: 0 Normal 0 Extinction and Inattention: 0 Normal 0 Total 0 General Adult EDM: Chief Complaint: NEURO SYMPTOMS/DEFICITS HPI: HPI: Patient is a 50 year old F who presents with throat numbness. Pt was recently admitted to [place] [facility] 5 days ago - worked up for stroke. All imaging came back within normal limits and was told her symptoms may have been a migraine. She was discharged with a prescription of Plavix, which she has not been able to fill yet. Today, she claims to have different symptoms. Around 3pm, she began to feel the left side of her tongue go numb, which progressed down the left side of her throat. She denies difficulty swallowing. They went to see a movie and by the time they got home, her left arm and leg felt heavy. Now she is reporting numbness/tingling in her left foot. Pt also reports minor confusion. was present at time of interview and reports that she is having difficulty with word recall. She reports chest "tightness" that she believes is attributed to anxiety. Pain does not radiate, denies palpitations, or shortness of breath. She denies headache, changes in vision, or hearing. Denies any changes to her facial expression, which is what happened the last time. Denies nausea, vomiting, loss of control of bladder or bowels. Denies recent fevers, chills, or rashes. Denies any changes to her medications or new foods. Review of Systems: Review of Systems: Review of systems: Constitutional symptoms- No fever, no chills. Eyes- No Discharge, No Visual Loss Respiratory symptoms- No shortness of breath, No wheezing, No Dyspnea on Exertion Cardiovascular Systems; Positive chest pain, No Palpitations, No syncope Gastrointestinal symptoms: NO abdominal pain, no nausea, no vomiting or diarrhea. Genitourinary symptoms: No dysuria. Musculoskeletal symptoms: No back pain No extremity pain. NEUROLOGICAL Symptoms: No headache, no generalized weakness; Positive numbness/tingling in L upper and lower extremities Skin: No rash. Heart Score: C/O Chest Pain: N/A Risk Factors: Risk Factors: DM, Current or recent (<one month) smoker, HTN, HLP, family history of CAD, obesity. Risk Scores: Score 0 - 3: 2.5% MACE over next 6 weeks - Discharge Home Score 4 - 6: 20.3% MACE over next 6 weeks - Admit for Clinical Observation Score 7 - 10: 72.7% MACE over next 6 weeks - Early Invasive Strategies Allergies: Allergies: Allergies Coded Allergies Type Severity Reaction Last Updated Verified acetaminophen Adverse Reaction Mild Nausea and Vomiting 05/28/21 Yes hydrocodone Adverse Reaction Mild Nausea and Vomiting 05/28/21 Yes meperidine Adverse Reaction Mild Anxiety 05/28/21 Yes Physical Exam: PE: General: alert, no acute distress. Skin: warm, dry and intact, no erythema, no rash. HENT: bilateral external ears normal, oropharynx moist, nose normal. Head:: Normocephalic, atraumatic. Neck: Trachea midline. Eyes: EOMI, Normal conjunctiva, No drainage CARDIOVASCULAR: Regular rate and rhythm RESPIRATORY: No respiratory distress Back: Full range of motion. MUSCULOSKELETAL: Full range of motion of bilateral upper and lower extremities. +5/5 strength in upper/lower extremities bilaterally. Sensation in tact. GASTROINTESTINAL: Abdomen soft without rebound or guarding. NEUROLOGICAL: Alert and noted to person, place and time. No neurological defici ts observed in cranial nerves II-XII Psychiatric: Cooperative. Normal judgment Current Patient Data: Labs: Laboratory Tests Test 07/25/21 20:50 07/25/21 20:51 White Blood Count 10.8 x10^3/uL (4.0-11.0) Red Blood Count 4.66 x10^6/uL (3.50-5.40) Hemoglobin 12.4 g/dL (12.0-15.5) Hematocrit 37.2 % (36.0-47.0) Mean Corpuscular Volume 80 fL (79-100) Mean Corpuscular Hemoglobin 27 pg (25-35) Mean Corpuscular Hemoglobin Concent 33 g/dL (31-37) Red Cell Distribution Width 15.3 % (11.5-14.5) H Platelet Count 319 x10^3/uL (140-400) Neutrophils (%) (Auto) 60 % (31-73) Lymphocytes (%) (Auto) 32 % (24-48) Monocytes (%) (Auto) 6 % (0-9) Eosinophils (%) (Auto) 2 % (0-3) Basophils (%) (Auto) 1 % (0-3) Neutrophils # (Auto) 6.4 x10^3/uL (1.8-7.7) Lymphocytes # (Auto) 3.4 x10^3/uL (1.0-4.8) Monocytes # (Auto) 0.7 x10^3/uL (0.0-1.1) Eosinophils # (Auto) 0.2 x10^3/uL (0.0-0.7) Basophils # (Auto) 0.1 x10^3/uL (0.0-0.2) Glucose (Fingerstick) 98 mg/dL (70-99) Laboratory Tests 07/25/21 20:50 EKG: EKG: [] Radiology/Procedures: Radiology/Procedures: [] Course & Med Decision Making: Course & Med Decision Making Pertinent Labs and Imaging studies reviewed. (See chart for details) []Patient evaluated for chief complaint. CT head and CT angio head and neck negative. Labs unremarkable. Discussed hospitalization for observation and evaluation by neurology. Patient preferred to be discharged home. Because patient with 2 ct head and cta head and neck within the last 72 hours and a negative MRI-- okay with patients request to go home. Patient was Rx'd plavix but had not started. Dosed with plavix prior to DC. Prior to discharge patient with sudden onset of nausea w/ dry heaving. Treated with zofran. Patient observed no vomiting. Patient still requests to be dc. Dragon Disclaimer: Lilian Disclaimer: This electronic medical record was generated, in whole or in part, using a voice recognition dictation system. Departure Departure Impression: Primary Impression: Paresthesia Disposition: HOME / SELF CARE / HOMELESS Condition: STABLE Referrals: Miguel Ángel FOUNTAIN MD (PCP) Patient Instructions: Paresthesia Scripts Ondansetron (ONDANSETRON ODT) 4 Mg Tab.rapdis 4 MG PO BID PRN for NAUSEA/VOMITING, #20 TAB Prov: ANGÉLICA STARKS DO 07/26/21 ANGÉLICA STARKS DO Jul 25, 2021 21:43
[2021-07-25] MEDS ORDERED: CONTRAST GIVEN. MC PRN (21:45)
[2021-07-25] MEDS ORDERED: IOHEXOL 300 MG/ML 100ML VIAL. IV ONE (22:00)
--- NOTE | 2021-07-25 22:17 | EKG ---
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
--- NOTE | 2021-07-25 22:35 | RAD ---
CTA HEAD AND NECK W/WO CONTRAST History:Reason: stroke, OMNI 300 75 ML IV / Spl. Instructions: / History: Technique: After bolus of intravenous contrast, volumetric CT data acquisition was acquired of the he ad and neck. Multiplanar reconstruction images to include MIP and 3-D reconstruction images are submi tted. Exposure: One or more of the following individualized dose reduction techniques were utilized for thi s examination: 1. Automated exposure control 2. Adjustment of the mA and/or kV according to patient size 3. Use of iterative reconstruction technique. Comparison: Noncontrast head CT July 25, 2021 performed at a separate time. CT angiogram June [id number]. Any determination of stenosis is based on NASCET criteria. Head CTA: Evaluation degraded due to contrast bolus timing and technique. ICA: No stenosis, occlusion or aneurysm. MCA: No stenosis, occlusion or aneurysm. JESSICA: No stenosis, occlusion or aneurysm. NURSING CONSULTANT: No stenosis, occlusion or aneurysm. origin of the right posterior tibial artery and predom inantly origin of the left posterior cerebral artery. Basilar artery: No stenosis, occlusion or aneurysm. Small vertebral basilar system Distal vertebral arteries: No stenosis, occlusion or aneurysm. Patent superior sagittal, straight, transverse and sigmoid venous sinuses. CT angiogram neck: Aortic arch: Aberrant right subclavian artery. Common carotid arteries: No stenosis, occlusion or dissection. Internal carotid arteries: No stenosis, occlusion or dissection. External carotid arteries: Patent Vertebral arteries: No stenosis, occlusion or dissection. Imaged lung apices are unremarkable. Soft tissues appear normal. Bones: Level cervical spondylosis. Impression: CT angiogram head: 1. Degraded evaluation. No definite intracranial arterial stenosis or occlusion. If persistent clini alden concern, recommend follow-up. 2. Small vertebral basilar system, unchanged. CT angiogram neck: 1. No arterial stenosis or occlusion within the neck. FOR INTERNAL CODING PURPOSES Critical result: Findings discussed with ANGÉLICA STARKS DO at 07/25/2021 10:30 PM. RESULT CODE: (C) Electronically signed by: Henry Zaidi DO (07/25/2021 10:32 PM) [facility]
[2021-07-25] MEDS ORDERED: ONDANSETRON PF 4 MG/2 ML VIAL. ONE (23:37)
[2021-07-25] MEDS ORDERED: ONDANSETRON PF 4 MG/2 ML VIAL. IVP ONE (23:45)
[2021-07-25] MEDS ORDERED: CLOPIDOGREL BISULFATE 75 MG TABLET PO ONE (23:45)
[2021-07-26] MEDS ORDERED: ONDA4TAB12 PO (00:35)
[2021-07-26] MEDS ORDERED: ONDANSETRON PF 4 MG/2 ML VIAL. IVP ONE (01:00)
[2021-07-26 01:05] VITALS: BP 122/65
== END 2021-07-26 01:10 | disposition home or self-care (01) ==
LOC: ER 20:35
DX: R20.2 Paresthesia of skin (principal); E78.00 Pure hypercholesterolemia, unspecified; I10 Essential (primary) hypertension; G43.909 Migraine, unspecified, not intractable, without status migrainosus; Z86.73 Personal history of transient ischemic attack (TIA), and cerebral infarction without residual deficits; Z87.891 Personal history of nicotine dependence; Z88.5 Allergy status to narcotic agent; Z88.1 Allergy status to other antibiotic agents; Z88.6 Allergy status to analgesic agent
CPT/HCPCS: 36415; 70450; 70496; 70498; 80048; 82962; 85025; 85610; 85730; 93005; 96374; 96376; 99285; J2405; Q9967

== ENCOUNTER 2021-10-31 03:47 | Inpatient (IN) | payer OTHER ==
[~2021-10-31] VITALS: Ht 160 cm; Wt 109.0 kg
[~2021-10-31 03:47] MED LIST changes: +ONDA4TAB12 PO
[2021-10-31 04:11] LABS: BASO # 0.1 x10^3/uL (0.0-0.2); BASO % 2 % (0-3); EOS # 0.3 x10^3/uL (0.0-0.7); EOS % 3 % (0-3); HEMATOCRIT 38.5 % (36.0-47.0); HEMOGLOBIN 12.6 g/dL (12.0-15.5); LYMPH # 3.5 x10^3/uL (1.0-4.8); LYMPH % 35 % (24-48); MEAN CORPUSCULAR HEMOGLOBIN 26 pg (25-35); MEAN CORPUSCULAR HGB CONC 33 g/dL (31-37); MEAN CORPUSCULAR VOLUME 80 fL (79-100); MONO # 0.6 x10^3/uL (0.0-1.1); MONO % 6 % (0-9); NEUT # 5.4 x10^3/uL (1.8-7.7); NEUT % 55 % (31-73); PLATELET COUNT 352 x10^3/uL (140-400); RED BLOOD COUNT 4.79 x10^6/uL (3.50-5.40); RED CELL DISTRIBUTION WIDTH 15.5 % (11.5-14.5); WHITE BLOOD COUNT 9.9 x10^3/uL (4.0-11.0)
--- NOTE | 2021-10-31 04:11 | EKG ---
[facility] [address] [place] [address] Test Date: 2021-10-31 Test Time: 03:55:50 Pat Name: LUIS BOSS Department: Room: Gender: F Preservationist: : 1970 Requested By: AMISHA SUÁREZ Order Number: [id number] Reading MD: Jean Pierre Walton MD Measurements Intervals Mildred Rate: 80 P: 41 AK: 160 QRS: 48 QRSD: 88 T: 62 QT: 392 QTc: 456 Interpretive Statements SINUS RHYTHM Electronically Signed On 11-02-2021 8:56:36 CDT by Jean Pierre Walton MD
[2021-10-31] MEDS ORDERED: ASPIRIN CHEWABLE 81 MG TABLET. PO ONE (04:15)
[2021-10-31 04:20] LABS: PROTHROMBIN TIME PATIENT 12.4 SEC (11.7-14.0)
[2021-10-31 04:23] LABS: D-DIMER 0.37 ug/mlFEU (0.00-0.50)
[2021-10-31 04:25] LABS: CALCIUM 9.4 mg/dL (8.5-10.1); CREATININE 0.9 mg/dL (0.6-1.0); GFR 66.5; POTASSIUM 3.6 mmol/L (3.5-5.1)
[2021-10-31] MEDS ORDERED: ONDANSETRON PF 4 MG/2 ML VIAL. ONE (04:28)
[2021-10-31 04:31] LABS: ALBUMIN 3.8 g/dL (3.4-5.0); ALBUMIN/GLOBULIN RATIO 0.8 (1.0-1.7); MAGNESIUM 2.4 mg/dL (1.8-2.4); TOTAL BILIRUBIN 0.2 mg/dL (0.2-1.0); TOTAL PROTEIN 8.8 g/dL (6.4-8.2)
[2021-10-31] MEDS ORDERED: LABETALOL 20 MG/4 ML DISP.SYRIN. IVP ONE (05:00)
[2021-10-31] MEDS ORDERED: ONDANSETRON PF 4 MG/2 ML VIAL. IVP ONE (05:00)
[2021-10-31] MEDS ORDERED: IV NORMAL SALINE 1000ML BAG 1,000 ML IV ONE (05:00)
--- NOTE | 2021-10-31 05:05 | PHYS DOC ---
Past Medical History Past Medical History: Gallstones, High Cholesterol, Hypertension, Hypothyroid, Migraines, Ovarian Cyst, TIA Additional Past Medical Histor: covid 19 Additional Past Surgical Histo: right knee, OOPHORECTOMY Smoking Status: Never Smoker Alcohol Use: None Drug Use: None General Adult EDM: Chief Complaint: CHEST PAIN HPI: HPI: 50-year-old female presents with report of substernal chest pain that started last night. Patient reports has been continuing to be ongoing however was worse early this morning causing her to wake from sleep. Denies any shortness of breath. Does report some associated nausea. Denies cough. Denies fever or chills. Denies leg swelling or calf tenderness. Patient reports cardiac risk factors of high blood pressure and high cholesterol. Reports patient current pain 4 out of 10. Review of Systems: Review of Systems: Constitutional: Denies fever or chills Eyes: Denies redness or eye pain HENT: Denies nasal congestion or sore throat Respiratory: Denies cough or shortness of breath Cardiovascular: Reports chest pain; denies palpitations GI: Denies abdominal pain or vomiting; reports nausea : Denies dysuria or hematuria Musculoskeletal: Denies back pain or joint pain Integument: Denies rash or skin lesions Neurologic: Denies headache, focal weakness or sensory changes Complete systems were reviewed and found to be within normal limits, except as documented in this note. Heart Score: C/O Chest Pain: Yes HEART Score for Chest Pain: HEART Score for Chest Pain Response (Comments) Value History Moderately Suspicious 1 ECG Normal 0 Age >45 - < 65 1 Risk Factors >3 Risk Factors or Hx CAD 2 Troponin < Normal Limit 0 Total 4 Risk Factors: Risk Factors: DM, Current or recent (<one month) smoker, HTN, HLP, family history of CAD, obesity. Risk Scores: Score 0 - 3: 2.5% MACE over next 6 weeks - Discharge Home Score 4 - 6: 20.3% MACE over next 6 weeks - Admit for Clinical Observation Score 7 - 10: 72.7% MACE over next 6 weeks - Early Invasive Strategies Current Medications: Current Medications Medications (Trade) Dose Ordered Sig/Albert Start Time Stop Time Status Last Admin Dose Admin Aspirin (Aspirin Chewable) 324 mg 1X ONCE 10/31/21 04:15 10/31/21 04:16 DC 10/31/21 04:08 324 MG Labetalol HCl (Normodyne Iv Push) 10 mg 1X ONCE 10/31/21 05:00 10/31/21 05:01 DC Ondansetron HCl (Zofran) 4 mg 1X ONCE 10/31/21 05:00 10/31/21 05:01 DC 10/31/21 04:34 4 MG Sodium Chloride 1,000 ml @ 1,000 mls/hr 1X ONCE 10/31/21 05:00 10/31/21 05:59 10/31/21 04:34 1,000 MLS/HR Allergies: Allergies: Allergies Coded Allergies Type Severity Reaction Last Updated Verified acetaminophen Adverse Reaction Mild Nausea and Vomiting 10/31/21 Yes hydrocodone Adverse Reaction Mild Nausea and Vomiting 10/31/21 Yes meperidine Adverse Reaction Mild Anxiety 10/31/21 Yes Physical Exam: PE: Constitutional: Well developed, obese, no acute distress, non-toxic appearance HENT: Normocephalic, atraumatic Eyes: Conjunctiva normal, no discharge Neck: Normal range of motion, no tenderness, supple Lungs & Thorax: No respiratory distress, equal chest rise and fall, clear to auscultation bilaterally, palpation of chest wall does not reproduce pain Cardiovascular: Regular rate and rhythm, no murmur Abdomen: Soft, no tenderness Skin: Warm, dry, no erythema, no rash Extremities: No tenderness, ROM intact, no edema Neurologic: Alert and oriented X 3, no focal deficits noted Psychologic: Affect normal, judgment normal Current Patient Data: Labs: Laboratory Tests Test 10/31/21 03:56 White Blood Count 9.9 x10^3/uL (4.0-11.0) Red Blood Count 4.79 x10^6/uL (3.50-5.40) Hemoglobin 12.6 g/dL (12.0-15.5) Hematocrit 38.5 % (36.0-47.0) Mean Corpuscular Volume 80 fL (79-100) Mean Corpuscular Hemoglobin 26 pg (25-35) Mean Corpuscular Hemoglobin Concent 33 g/dL (31-37) Red Cell Distribution Width 15.5 % (11.5-14.5) H Platelet Count 352 x10^3/uL (140-400) Neutrophils (%) (Auto) 55 % (31-73) Lymphocytes (%) (Auto) 35 % (24-48) Monocytes (%) (Auto) 6 % (0-9) Eosinophils (%) (Auto) 3 % (0-3) Basophils (%) (Auto) 2 % (0-3) Neutrophils # (Auto) 5.4 x10^3/uL (1.8-7.7) Lymphocytes # (Auto) 3.5 x10^3/uL (1.0-4.8) Monocytes # (Auto) 0.6 x10^3/uL (0.0-1.1) Eosinophils # (Auto) 0.3 x10^3/uL (0.0-0.7) Basophils # (Auto) 0.1 x10^3/uL (0.0-0.2) Prothrombin Time 12.4 SEC (11.7-14.0) Prothrombin Time INR 1.0 (0.8-1.1) Activated Partial Thromboplast Time 29 SEC (24-38) D-Dimer (Zaira) 0.37 ug/mlFEU (0.00-0.50) Sodium Level 141 mmol/L (136-145) Potassium Level 3.6 mmol/L (3.5-5.1) Chloride Level 102 mmol/L (98-107) Carbon Dioxide Level 29 mmol/L (21-32) Anion Gap 10 (6-14) Blood Urea Nitrogen 13 mg/dL (7-20) Creatinine 0.9 mg/dL (0.6-1.0) Estimated GFR (Cockcroft-Gault) 66.5 BUN/Creatinine Ratio 14 (6-20) Glucose Level 127 mg/dL (70-99) H Calcium Level 9.4 mg/dL (8.5-10.1) Magnesium Level 2.4 mg/dL (1.8-2.4) Total Bilirubin 0.2 mg/dL (0.2-1.0) Aspartate Amino Transferase (AST) 21 U/L (15-37) Alanine Aminotransferase (ALT) 46 U/L (14-59) Alkaline Phosphatase 82 U/L (46-116) Troponin I High Sensitivity 28 ng/L (4-50) EU-Pba-Z-Type Natriuretic Peptide 12 pg/mL (0-124) Total Protein 8.8 g/dL (6.4-8.2) H Albumin 3.8 g/dL (3.4-5.0) Albumin/Globulin Ratio 0.8 (1.0-1.7) L Lipase 359 U/L (73-393) Laboratory Tests 10/31/21 03:56 Laboratory Tests 10/31/21 03:56 Vital Signs: Vital Signs Date Time Temp Pulse Resp B/P (MAP) Pulse Ox O2 Delivery O2 Flow Rate FiO2 10/31/21 03:59 98.0 77 17 206/115 (145) 100 Room Air 98.0 EKG: EKG: @0355 NSR at 80bpm, NO ST elevation, QRS 88ms, QT/QTc 392/456ms, t wave inversion aVL @0543 NSR at 75bpm, NO ST elevation, continued t wave inversion in aVL, QRS 86ms, QT/QTc 416/467ms Radiology/Procedures: Radiology/Procedures: PROCEDURE: PORTABLE CHEST 1V INDICATION: Reason: chest pain / Spl. Instructions: / History: COMPARISON: May 2021 FINDINGS: Frontal view of chest obtained. Hypoexpanded exam without focal airspace consolidation. Cardiac silhouette is prominent in size but likely exaggerated by portable technique. IMPRESSION: * Hypoexpanded exam without definite focal airspace consolidation. Electronically signed by: Delfino Stout MD (10/31/2021 5:29 AM) [id number] Course & Med Decision Making: Course & Med Decision Making Pertinent Labs and Imaging studies reviewed. (See chart for details) Patient presents with report of substernal chest pain which has been intermittent since yesterday. Reports associated nausea. Not able to reproduce pain with palpation of chest. Calves nontender. EKG stable. Labs obtained and posted to chart. D-dimer within normal limits. Initial troponin also within normal limits. Chest x-ray obtained without acute finding. HEART score 4. Patient requiring observation admission for further evaluation and treatment. Discussed with Dr. Evans (hospitalist) who is in agreement with admission. Discussed findings and plan with patient and family, who acknowledge understanding and agreement. Dragon Disclaimer: Lilian Disclaimer: This electronic medical record was generated, in whole or in part, using a voice recognition dictation system. Departure Departure Impression: Primary Impression: Chest pain Qualified Codes: R07.9 - Chest pain, unspecified Additional Impression: Hypertension Qualified Codes: I10 - Essential (primary) hypertension Disposition: ADMITTED INPATIENT (Observation) Admitting Physician: SHRUTHI Alfaro) Condition: STABLE Referrals: Miguel Ángel FOUNTAIN MD (PCP) AMISHA SUÁREZ DO October 31, 2021 05:05
[2021-10-31] MEDS ORDERED: fentaNYL PF VIAL 100 MCG/2 ML VIAL IVP PRN (05:30)
[2021-10-31] MEDS ORDERED: ONDANSETRON PF 4 MG/2 ML VIAL. IVP PRN ×2 (05:30→09:30)
--- NOTE | 2021-10-31 05:32 | RAD ---
INDICATION: Reason: chest pain / Spl. Instructions: / History: COMPARISON: May 2021 FINDINGS: Frontal view of chest obtained. Hypoexpanded exam without focal airspace consolidation. Cardiac silhouette is prominent in size but likely exaggerated by portable technique. IMPRESSION: * Hypoexpanded exam without definite focal airspace consolidation. Electronically signed by: Delfino Stout MD (10/31/2021 5:29 AM) [id number]
--- NOTE | 2021-10-31 06:25 | EKG ---
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
[2021-10-31 06:51] LABS: BACTERIA,URINE FEW /HPF (0-FEW); RBC,URINE 0 /HPF (0-2); WBC,URINE 0 /HPF (0-4)
[2021-10-31 08:30] VITALS: BP 112/49
--- NOTE | 2021-10-31 09:16 | PDOC1 ---
History and Physical Date of Admission Date of Admission DATE: 10/31/21 TIME: 09:13 Identification/Chief Complaint Chief Complaint Chest pain Source Source: Patient History of Present Illness History of Present Illness Patient is a 50-year-old female with past medical history HTN, HLD, TIA, who presents with substernal chest pain since last night. Patient reports constant chest pressure with associated sharp chest pain. Pain intensity is 4/10. She has a history of similar symptoms in the past, but when her pain woke her from sleep last night with associated nausea, she came to the ED for further evaluation. She denies shortness of breath, cough, fever, or chills. She has not had any leg swelling or calf tenderness. At the time of my evaluation her pain has improved some, but is still present blood pressure upon admission was 206/115 mmHg. Labs on admission showed CBG 127, troponins 28, with repeat 21. Chest x-ray showed hypoexpanded exam, but no consolidation. She been admitted for further medical management. Past Medical History Cardiovascular: Hyperlipidemia, Other Pulmonary: Other CENTRAL NERVOUS SYSTEM: Migraine, Periperal neuropathy, Vertigo, Other GI: GERD Heme/Onc: No pertinent hx Hepatobiliary: Other Psych: Anxiety, Bipolar Rheumatologic: Other Infectious disease: Other Renal/: UTI Endocrine: Hypothyroidism Past Surgical History Past Surgical History: Cholecystectomy, , Hysterectomy, Other Family History Family History: Hypertension, Hypothyroidism Social History Smoke: No ALCOHOL: rare Drugs: None Current Problem List Problem List Problems Medical Problems: (1) Chest pain Status: Acute (2) Hypertension Status: Acute Current Medications Current Medications Current Medications Aspirin (Aspirin Chewable) 324 mg 1X ONCE PO Last administered on 10/31/21at 04: 08; Start 10/31/21 at 04:15; Stop 10/31/21 at 04:16; Status DC Ondansetron HCl (Zofran) 4 mg 1X ONCE IVP Last administered on 10/31/21at 04:34; Start 10/31/21 at 05:00; Stop 10/31/21 at 05:01; Status DC Sodium Chloride 1,000 ml @ 1,000 mls/hr 1X ONCE IV Last administered on 10/31/21at 04:34; Start 10/31/21 at 05:00; Stop 10/31/21 at 05:59; Status DC Labetalol HCl (Normodyne Iv Push) 10 mg 1X ONCE IVP ; Start 10/31/21 at 05:00; Stop 10/31/21 at 05:01; Status DC Ondansetron HCl (Zofran) 4 mg PRN Q8HRS PRN IVP NAUSEA/VOMITING 1ST CHOICE; Start 10/31/21 at 05:30; Stop 11/01/21 at 05:29 Fentanyl Citrate (Fentanyl 2ml Vial) 50 mcg PRN Q2HRS PRN IVP SEVERE PAIN 7-10; Start 10/31/21 at 05:30 Active Scripts Active Ondansetron Odt (Ondansetron) 4 Mg Tab.rapdis 4 Mg PO BID PRN Clopidogrel (Clopidogrel Bisulfate) 75 Mg Tablet 75 Mg PO DAILYWBKFT 30 Days Vitamin C (Ascorbic Acid) 500 Mg Capsule.er 1 Cap PO DAILY 10 Days Vitamin D3 (Cholecalciferol (Vitamin D3)) 100 Mcg Capsule 100 Mcg PO DAILY Aspirin Ec (Aspirin) 81 Mg Tablet.dr 81 Mg PO DAILYWBKFT 30 Days Reported Clopidogrel (Clopidogrel Bisulfate) 75 Mg Tablet 1 Tab PO DAILY 30 Days Euthyrox (Levothyroxine Sodium) 125 Mcg Tablet 125 Mcg PO DAILY06 Diltiazem 24Hr ER (LA) (Diltiazem HCl) 180 Mg Tab.er.24h 1 Tab PO DAILY 30 Days Trazodone Hcl 150 Mg Tablet 1 Tab PO QHS 30 Days Atorvastatin Calcium 20 Mg Tablet 1 Tab PO DAILY Allergies Allergies: Coded Allergies: acetaminophen (Verified Adverse Reaction, Mild, Nausea and Vomiting, 10/31/21) abdominal cramping hydrocodone (Verified Adverse Reaction, Mild, Nausea and Vomiting, 10/31/21) abdominal cramping meperidine (Verified Adverse Reaction, Mild, Anxiety, 10/31/21) Pt. states it "makes her feel like she's crawling out of her skin" ROS Review of System GENERAL: No history of weight change, weakness or fevers. SKIN: No bruising, hair changes or rashes. EYES: No blurred, double or loss of vision. NOSE AND THROAT: No history of nosebleeds, hoarseness or sore throat. HEART: Chest pain. Denies palpitations. LUNGS: Denies cough, hemoptysis, wheezing or shortness of breath. GASTROINTESTINAL: Nausea. Denies vomiting, abdominal pain. GENITOURINARY: Denies dysuria, frequency, urgency, hematuria. NEUROLOGIC: Denies history of numbness, tingling, tremor or weakness. PSYCHIATRIC: Denies anxiety, denies depression. ENDOCRINE: No history of heat or cold intolerance, polyuria or polydipsia. EXTREMITIES: Denies muscle weakness, joint pain, pain on walking or stiffness. Physical Exam Physical Exam General: Alert, Oriented X3, Cooperative, No acute distress. Morbidly obese. HEENT: PERRLA, EOMI Lungs: Decreased breath sounds, normal air movement Heart: RRR, no murmurs Cardiovascular: S1, S2 Abdomen: Normal bowel sounds, Soft, No tenderness Extremities: No clubbing, No cyanosis Skin: No rashes, No significant lesion Neuro: Normal speech, Normal tone, Sensation intact Psych/Mental Status: Mental status NL, Mood NL Vitals Vitals Vital Signs Date Time Temp Pulse Resp B/P (MAP) Pulse Ox O2 Delivery O2 Flow Rate FiO2 10/31/21 03:59 98.0 77 17 206/115 (145) 100 Room Air 98.0 Labs Labs Laboratory Tests Test 10/31/21 03:56 10/31/21 06:22 10/31/21 06:39 White Blood Count 9.9 x10^3/uL (4.0-11.0) Red Blood Count 4.79 x10^6/uL (3.50-5.40) Hemoglobin 12.6 g/dL (12.0-15.5) Hematocrit 38.5 % (36.0-47.0) Mean Corpuscular Volume 80 fL (79-100) Mean Corpuscular Hemoglobin 26 pg (25-35) Mean Corpuscular Hemoglobin Concent 33 g/dL (31-37) Red Cell Distribution Width 15.5 % (11.5-14.5) Platelet Count 352 x10^3/uL (140-400) Neutrophils (%) (Auto) 55 % (31-73) Lymphocytes (%) (Auto) 35 % (24-48) Monocytes (%) (Auto) 6 % (0-9) Eosinophils (%) (Auto) 3 % (0-3) Basophils (%) (Auto) 2 % (0-3) Neutrophils # (Auto) 5.4 x10^3/uL (1.8-7.7) Lymphocytes # (Auto) 3.5 x10^3/uL (1.0-4.8) Monocytes # (Auto) 0.6 x10^3/uL (0.0-1.1) Eosinophils # (Auto) 0.3 x10^3/uL (0.0-0.7) Basophils # (Auto) 0.1 x10^3/uL (0.0-0.2) Prothrombin Time 12.4 SEC (11.7-14.0) Prothromb Time International Ratio 1.0 (0.8-1.1) Activated Partial Thromboplast Time 29 SEC (24-38) D-Dimer (Zaira) 0.37 ug/mlFEU (0.00-0.50) Sodium Level 141 mmol/L (136-145) Potassium Level 3.6 mmol/L (3.5-5.1) Chloride Level 102 mmol/L (98-107) Carbon Dioxide Level 29 mmol/L (21-32) Anion Gap 10 (6-14) Blood Urea Nitrogen 13 mg/dL (7-20) Creatinine 0.9 mg/dL (0.6-1.0) Estimated GFR (Cockcroft-Gault) 66.5 BUN/Creatinine Ratio 14 (6-20) Glucose Level 127 mg/dL (70-99) Calcium Level 9.4 mg/dL (8.5-10.1) Magnesium Level 2.4 mg/dL (1.8-2.4) Total Bilirubin 0.2 mg/dL (0.2-1.0) Aspartate Amino Transf (AST/SGOT) 21 U/L (15-37) Alanine Aminotransferase (ALT/SGPT) 46 U/L (14-59) Alkaline Phosphatase 82 U/L (46-116) Troponin I High Sensitivity 28 ng/L (4-50) 21 ng/L (4-50) UV-Xqn-Y-Type Natriuretic Peptide 12 pg/mL (0-124) Total Protein 8.8 g/dL (6.4-8.2) Albumin 3.8 g/dL (3.4-5.0) Albumin/Globulin Ratio 0.8 (1.0-1.7) Lipase 359 U/L (73-393) Urine Collection Type Unknown Urine Color (Auto) Colorless Urine Turbidity Clear Urine pH (Auto) 6.0 (<5.0-8.0) Urine Specific Minerva 1.010 (1.000-1.030) Urine Protein (Auto) Negative mg/dL (Negative) Urine Glucose (Auto)(UA) Negative mg/dL (Negative) Urine Ketones (Auto) Negative mg/dL (Negative) Urine Blood (Auto) Negative (Negative) Urine Nitrite Negative (Negative) Urine Bilirubin (Auto) Negative (Negative) Urine Urobilinogen (Auto) Normal mg/dL (Normal) Urine Leukocyte Esterase (Auto) Negative (Negative) Urine RBC 0 /HPF (0-2) Urine WBC 0 /HPF (0-4) Urine Squamous Epithelial Cells Mod /LPF Urine Bacteria Few /HPF (0-FEW) Laboratory Tests Test 10/31/21 03:56 10/31/21 06:22 10/31/21 06:39 White Blood Count 9.9 x10^3/uL (4.0-11.0) Red Blood Count 4.79 x10^6/uL (3.50-5.40) Hemoglobin 12.6 g/dL (12.0-15.5) Hematocrit 38.5 % (36.0-47.0) Mean Corpuscular Volume 80 fL (79-100) Mean Corpuscular Hemoglobin 26 pg (25-35) Mean Corpuscular Hemoglobin Concent 33 g/dL (31-37) Red Cell Distribution Width 15.5 % (11.5-14.5) Platelet Count 352 x10^3/uL (140-400) Neutrophils (%) (Auto) 55 % (31-73) Lymphocytes (%) (Auto) 35 % (24-48) Monocytes (%) (Auto) 6 % (0-9) Eosinophils (%) (Auto) 3 % (0-3) Basophils (%) (Auto) 2 % (0-3) Neutrophils # (Auto) 5.4 x10^3/uL (1.8-7.7) Lymphocytes # (Auto) 3.5 x10^3/uL (1.0-4.8) Monocytes # (Auto) 0.6 x10^3/uL (0.0-1.1) Eosinophils # (Auto) 0.3 x10^3/uL (0.0-0.7) Basophils # (Auto) 0.1 x10^3/uL (0.0-0.2) Prothrombin Time 12.4 SEC (11.7-14.0) Prothromb Time International Ratio 1.0 (0.8-1.1) Activated Partial Thromboplast Time 29 SEC (24-38) D-Dimer (Zaira) 0.37 ug/mlFEU (0.00-0.50) Sodium Level 141 mmol/L (136-145) Potassium Level 3.6 mmol/L (3.5-5.1) Chloride Level 102 mmol/L (98-107) Carbon Dioxide Level 29 mmol/L (21-32) Anion Gap 10 (6-14) Blood Urea Nitrogen 13 mg/dL (7-20) Creatinine 0.9 mg/dL (0.6-1.0) Estimated GFR (Cockcroft-Gault) 66.5 BUN/Creatinine Ratio 14 (6-20) Glucose Level 127 mg/dL (70-99) Calcium Level 9.4 mg/dL (8.5-10.1) Magnesium Level 2.4 mg/dL (1.8-2.4) Total Bilirubin 0.2 mg/dL (0.2-1.0) Aspartate Amino Transf (AST/SGOT) 21 U/L (15-37) Alanine Aminotransferase (ALT/SGPT) 46 U/L (14-59) Alkaline Phosphatase 82 U/L (46-116) Troponin I High Sensitivity 28 ng/L (4-50) 21 ng/L (4-50) WL-Hth-I-Type Natriuretic Peptide 12 pg/mL (0-124) Total Protein 8.8 g/dL (6.4-8.2) Albumin 3.8 g/dL (3.4-5.0) Albumin/Globulin Ratio 0.8 (1.0-1.7) Lipase 359 U/L (73-393) Urine Collection Type Unknown Urine Color (Auto) Colorless Urine Turbidity Clear Urine pH (Auto) 6.0 (<5.0-8.0) Urine Specific Minerva 1.010 (1.000-1.030) Urine Protein (Auto) Negative mg/dL (Negative) Urine Glucose (Auto)(UA) Negative mg/dL (Negative) Urine Ketones (Auto) Negative mg/dL (Negative) Urine Blood (Auto) Negative (Negative) Urine Nitrite Negative (Negative) Urine Bilirubin (Auto) Negative (Negative) Urine Urobilinogen (Auto) Normal mg/dL (Normal) Urine Leukocyte Esterase (Auto) Negative (Negative) Urine RBC 0 /HPF (0-2) Urine WBC 0 /HPF (0-4) Urine Squamous Epithelial Cells Mod /LPF Urine Bacteria Few /HPF (0-FEW) Images Images PATIENT: LUIS BOSS LACCOUNT: [id number] : 1970 LOCATION: ER AGE: 50 SEX: F EXAM STATUS: PRE ER ORD. PHYSICIAN: AMISHA SUÁREZ DO REASON: chest pain PROCEDURE: PORTABLE CHEST 1V INDICATION: Reason: chest pain / Spl. Instructions: / History: COMPARISON: May 2021 FINDINGS: Frontal view of chest obtained. Hypoexpanded exam without focal airspace consolidation. Cardiac silhouette is prominent in size but likely exaggerated by portable technique. IMPRESSION: * Hypoexpanded exam without definite focal airspace consolidation. VTE Prophylaxis Ordered VTE Prophylaxis Devices: No VTE Pharmacological Prophylaxi: Yes Assessment/Plan Assessment/Plan Chest pain Hypertensive urgency HLD Hypothyroidism History of TIA Plan: Consult placed to cardiology Troponins trended with no significant elevation. Continue trending troponins. Lipid panel, TSH pending. Echocardiogram from 02/17/2021 showed normal LV wall motion, LV systolic function normal and EF 55%. Fentanyl/morphine, nitroglycerin as needed IV hydralazine as needed. She may need adjustment of her home blood pressure medication. Resume home medications FEN - Cardiac diet PPX - Heparin FULL CODE Dispo - inpatient for above, however barring any further cardiac intervention patient may discharge home from my standpoint. Justifications for Admission Other Justification ALEXANDRIA WALTER MD October 31, 2021 09:16
[2021-10-31] MEDS ORDERED: LEVO125T77 PO (09:19)
[2021-10-31] MEDS ORDERED: DIPH50CA16 PO (09:19)
[2021-10-31] MEDS ORDERED: ATOR20TA58 PO (09:19)
[2021-10-31] MEDS ORDERED: VITA1TAB31 PO (09:19)
[2021-10-31] MEDS ORDERED: DILT180C29 PO (09:19)
[2021-10-31] MEDS ORDERED: ASPI81TA59 PO (09:19)
[2021-10-31] MEDS ORDERED: TRAZ150T49 PO (09:19)
[2021-10-31] MEDS ORDERED: hydrALAZINE 20 MG/ML VIAL. IVP PRN (09:30)
[2021-10-31] MEDS ORDERED: MAG HYDROX/ALUMINUM HYD/SIMETH 30 ML ORAL.SUSP PO PRN (09:30)
[2021-10-31] MEDS ORDERED: ACETAMINOPHEN 325 MG TABLET. PO PRN (09:30)
[2021-10-31] MEDS ORDERED: ZOLPIDEM 5 MG TABLET. PO PRN (09:30)
[2021-10-31] MEDS ORDERED: DOCUSATE SODIUM 100 MG CAPSULE. PO PRN (09:30)
[2021-10-31] MEDS ORDERED: NITROGLYCERIN SUBLINGUAL 0.4 MG BOTTLE OF 25. SL PRN (09:30)
[2021-10-31] MEDS ORDERED: CALCIUM CARBONATE 500 MG TAB.CHEW PO PRN (09:30)
[2021-10-31] MEDS ORDERED: MORPHINE SULFATE 2 MG/ML INJ. IV PRN (09:30)
[2021-10-31] MEDS ORDERED: HYDROcodone/APAP 5/325MG 1 TAB TABLET PO PRN (09:30)
[2021-10-31] MEDS ORDERED: MAGNESIUM HYDROXIDE 2,400 MG/30 ML ORAL.SUSP. PO PRN (09:30)
[2021-10-31 09:31] LABS: CHOLESTEROL/HDL RATIO 3.2
[2021-10-31 10:43] VITALS: BP 142/74
--- NOTE | 2021-10-31 11:12 | PDOC3 ---
Discharge Summary Visit Information Date of Admission: October 31, 2021 Date of Discharge: October 31, 2021 Final Diagnosis Problems Medical Problems: (1) Chest pain Status: Acute (2) Hypertension Status: Acute Brief Hospital Course Allergies Allergies Coded Allergies Type Severity Reaction Last Updated Verified acetaminophen Adverse Reaction Mild Nausea and Vomiting 10/31/21 Yes hydrocodone Adverse Reaction Mild Nausea and Vomiting 10/31/21 Yes meperidine Adverse Reaction Mild Anxiety 10/31/21 Yes Vital Signs Vital Signs Date Time Temp Pulse Resp B/P (MAP) Pulse Ox O2 Delivery O2 Flow Rate FiO2 10/31/21 10:43 97.6 76 17 142/74 (96) 96 97.6 10/31/21 03:59 Room Air Lab Results Laboratory Tests Test 10/31/21 03:56 10/31/21 06:22 10/31/21 06:39 10/31/21 09:42 White Blood Count 9.9 x10^3/uL (4.0-11.0) Red Blood Count 4.79 x10^6/uL (3.50-5.40) Hemoglobin 12.6 g/dL (12.0-15.5) Hematocrit 38.5 % (36.0-47.0) Mean Corpuscular Volume 80 fL (79-100) Mean Corpuscular Hemoglobin 26 pg (25-35) Mean Corpuscular Hemoglobin Concent 33 g/dL (31-37) Red Cell Distribution Width 15.5 % (11.5-14.5) Platelet Count 352 x10^3/uL (140-400) Neutrophils (%) (Auto) 55 % (31-73) Lymphocytes (%) (Auto) 35 % (24-48) Monocytes (%) (Auto) 6 % (0-9) Eosinophils (%) (Auto) 3 % (0-3) Basophils (%) (Auto) 2 % (0-3) Neutrophils # (Auto) 5.4 x10^3/uL (1.8-7.7) Lymphocytes # (Auto) 3.5 x10^3/uL (1.0-4.8) Monocytes # (Auto) 0.6 x10^3/uL (0.0-1.1) Eosinophils # (Auto) 0.3 x10^3/uL (0.0-0.7) Basophils # (Auto) 0.1 x10^3/uL (0.0-0.2) Prothrombin Time 12.4 SEC (11.7-14.0) Prothromb Time International Ratio 1.0 (0.8-1.1) Activated Partial Thromboplast Time 29 SEC (24-38) D-Dimer (Zaira) 0.37 ug/mlFEU (0.00-0.50) Sodium Level 141 mmol/L (136-145) Potassium Level 3.6 mmol/L (3.5-5.1) Chloride Level 102 mmol/L (98-107) Carbon Dioxide Level 29 mmol/L (21-32) Anion Gap 10 (6-14) Blood Urea Nitrogen 13 mg/dL (7-20) Creatinine 0.9 mg/dL (0.6-1.0) Estimated GFR (Cockcroft-Gault) 66.5 BUN/Creatinine Ratio 14 (6-20) Glucose Level 127 mg/dL (70-99) Calcium Level 9.4 mg/dL (8.5-10.1) Magnesium Level 2.4 mg/dL (1.8-2.4) Total Bilirubin 0.2 mg/dL (0.2-1.0) Aspartate Amino Transf (AST/SGOT) 21 U/L (15-37) Alanine Aminotransferase (ALT/SGPT) 46 U/L (14-59) Alkaline Phosphatase 82 U/L (46-116) Troponin I High Sensitivity 28 ng/L (4-50) 21 ng/L (4-50) 24 ng/L (4-50) QL-Izn-C-Type Natriuretic Peptide 12 pg/mL (0-124) Total Protein 8.8 g/dL (6.4-8.2) Albumin 3.8 g/dL (3.4-5.0) Albumin/Globulin Ratio 0.8 (1.0-1.7) Lipase 359 U/L (73-393) Urine Collection Type Unknown Urine Color (Auto) Colorless Urine Turbidity Clear Urine pH (Auto) 6.0 (<5.0-8.0) Urine Specific [place] 1.010 (1.000-1.030) Urine Protein (Auto) Negative mg/dL (Negative) Urine Glucose (Auto)(UA) Negative mg/dL (Negative) Urine Ketones (Auto) Negative mg/dL (Negative) Urine Blood (Auto) Negative (Negative) Urine Nitrite Negative (Negative) Urine Bilirubin (Auto) Negative (Negative) Urine Urobilinogen (Auto) Normal mg/dL (Normal) Urine Leukocyte Esterase (Auto) Negative (Negative) Urine RBC 0 /HPF (0-2) Urine WBC 0 /HPF (0-4) Urine Squamous Epithelial Cells Mod /LPF Urine Bacteria Few /HPF (0-FEW) Triglycerides Level 120 mg/dL (0-150) Cholesterol Level 114 mg/dL (0-200) LDL Cholesterol, Calculated 54 mg/dL (0-100) VLDL Cholesterol, Calculated 24 mg/dL (0-40) Non-HDL Cholesterol Calculated 78 mg/dL (0-129) HDL Cholesterol 36 mg/dL (40-60) Cholesterol/HDL Ratio 3.2 Thyroid Stimulating Hormone (TSH) 4.270 uIU/mL (0.358-3.74) Laboratory Tests Test 10/31/21 03:56 10/31/21 06:22 10/31/21 06:39 10/31/21 09:42 White Blood Count 9.9 x10^3/uL (4.0-11.0) Red Blood Count 4.79 x10^6/uL (3.50-5.40) Hemoglobin 12.6 g/dL (12.0-15.5) Hematocrit 38.5 % (36.0-47.0) Mean Corpuscular Volume 80 fL (79-100) Mean Corpuscular Hemoglobin 26 pg (25-35) Mean Corpuscular Hemoglobin Concent 33 g/dL (31-37) Red Cell Distribution Width 15.5 % (11.5-14.5) Platelet Count 352 x10^3/uL (140-400) Neutrophils (%) (Auto) 55 % (31-73) Lymphocytes (%) (Auto) 35 % (24-48) Monocytes (%) (Auto) 6 % (0-9) Eosinophils (%) (Auto) 3 % (0-3) Basophils (%) (Auto) 2 % (0-3) Neutrophils # (Auto) 5.4 x10^3/uL (1.8-7.7) Lymphocytes # (Auto) 3.5 x10^3/uL (1.0-4.8) Monocytes # (Auto) 0.6 x10^3/uL (0.0-1.1) Eosinophils # (Auto) 0.3 x10^3/uL (0.0-0.7) Basophils # (Auto) 0.1 x10^3/uL (0.0-0.2) Prothrombin Time 12.4 SEC (11.7-14.0) Prothromb Time International Ratio 1.0 (0.8-1.1) Activated Partial Thromboplast Time 29 SEC (24-38) D-Dimer (Zaira) 0.37 ug/mlFEU (0.00-0.50) Sodium Level 141 mmol/L (136-145) Potassium Level 3.6 mmol/L (3.5-5.1) Chloride Level 102 mmol/L (98-107) Carbon Dioxide Level 29 mmol/L (21-32) Anion Gap 10 (6-14) Blood Urea Nitrogen 13 mg/dL (7-20) Creatinine 0.9 mg/dL (0.6-1.0) Estimated GFR (Cockcroft-Gault) 66.5 BUN/Creatinine Ratio 14 (6-20) Glucose Level 127 mg/dL (70-99) Calcium Level 9.4 mg/dL (8.5-10.1) Magnesium Level 2.4 mg/dL (1.8-2.4) Total Bilirubin 0.2 mg/dL (0.2-1.0) Aspartate Amino Transf (AST/SGOT) 21 U/L (15-37) Alanine Aminotransferase (ALT/SGPT) 46 U/L (14-59) Alkaline Phosphatase 82 U/L (46-116) Troponin I High Sensitivity 28 ng/L (4-50) 21 ng/L (4-50) 24 ng/L (4-50) UO-Twv-D-Type Natriuretic Peptide 12 pg/mL (0-124) Total Protein 8.8 g/dL (6.4-8.2) Albumin 3.8 g/dL (3.4-5.0) Albumin/Globulin Ratio 0.8 (1.0-1.7) Lipase 359 U/L (73-393) Urine Collection Type Unknown Urine Color (Auto) Colorless Urine Turbidity Clear Urine pH (Auto) 6.0 (<5.0-8.0) Urine Specific [place] 1.010 (1.000-1.030) Urine Protein (Auto) Negative mg/dL (Negative) Urine Glucose (Auto)(UA) Negative mg/dL (Negative) Urine Ketones (Auto) Negative mg/dL (Negative) Urine Blood (Auto) Negative (Negative) Urine Nitrite Negative (Negative) Urine Bilirubin (Auto) Negative (Negative) Urine Urobilinogen (Auto) Normal mg/dL (Normal) Urine Leukocyte Esterase (Auto) Negative (Negative) Urine RBC 0 /HPF (0-2) Urine WBC 0 /HPF (0-4) Urine Squamous Epithelial Cells Mod /LPF Urine Bacteria Few /HPF (0-FEW) Triglycerides Level 120 mg/dL (0-150) Cholesterol Level 114 mg/dL (0-200) LDL Cholesterol, Calculated 54 mg/dL (0-100) VLDL Cholesterol, Calculated 24 mg/dL (0-40) Non-HDL Cholesterol Calculated 78 mg/dL (0-129) HDL Cholesterol 36 mg/dL (40-60) Cholesterol/HDL Ratio 3.2 Thyroid Stimulating Hormone (TSH) 4.270 uIU/mL (0.358-3.74) Brief Hospital Course Ms. Chavarria is a 50 old female who presented with chest pain and hypertensive urgency. Consultation was placed to cardiology. Her troponins were trended and not elevated. Chest pain resolved spontaneously. Blood pressure did improve with resumption of her home medications. Blood pressure was monitored and continue to be stable. She was discharged home with self-care and close PCP follow-up. Discharge Information Condition at Discharge: Improved Disposition/Orders: D/C to Home Scheduled Aspirin (Children's Aspirin) 81 Mg Tab.chew, 1 TAB PO HS for cardiac for 30 Days, #30 Ref 0 (Reported) Entered as Reported by: DAILY MCALLISTER on 10/31/21918 Last Action: Continued on 10/31/21945 by ALEXANDRIA WALTER MD Atorvastatin Calcium (Atorvastatin Calcium) 20 Mg Tablet, 20 MG PO HS for FOR CHOLESTEROL, #30 Ref 0 (Reported) Entered as Reported by: DAILY MCALLISTER on 10/31/21918 Last Action: Continued on 10/31/21945 by ALEXANDRIA WALTER MD Diltiazem Hcl (Diltiazem 24HR Cd) 180 Mg Cap.er.24h, 180 MG PO HS for cardiac, (Reported) Entered as Reported by: DAILY MCALLISTER on 10/31/21918 Last Action: Continued on 10/31/21945 by ALEXANDRIA WALTER MD Diphenhydramine Hcl (Diphenhydramine Hcl) 50 Mg Capsule, 1 CAP PO QHS for sleep, #30 Ref 1 (Reported) Entered as Reported by: DAILY MCALLISTER on 10/31/21918 Last Action: New Order on 10/31/21918 by DAILY MCALLISTER Levothyroxine Sodium (Euthyrox) 125 Mcg Tablet, 125 MCG PO DAILY06 for replacement, (Reported) Entered as Reported by: DAILY MCALLISTER on 10/31/21918 Last Action: Continued on 10/31/21945 by ALEXANDRIA WALTER MD Trazodone Hcl (Trazodone Hcl) 150 Mg Tablet, 1 TAB PO QHS for mood for 30 Days, #30 Ref 0 (Reported) Entered as Reported by: DAILY MCALLISTER on 10/31/21918 Last Action: New Order on 10/31/21918 by DAILY MCALLISTER Vitamin D3/Vitamin K2 (D3 + K2 Dots 1,000 Units Tab) 1 Each Tab.rapdis, 1 TAB PO HS for replacement for 30 Days, #30 Ref 0 (Reported) Entered as Reported by: DAILY MCALLISTER on 10/31/21918 Last Action: New Order on 10/31/21918 by DAILY MCALLISTER Scheduled PRN Ondansetron (Ondansetron Odt) 4 Mg Tab.rapdis, 4 MG PO BID PRN for NAUSEA/VOMITING, #20 Prescribed by: ANGÉLICA STARKS D.O. on 07/26/21 0035 Last Action: Reviewed on 10/31/21918 by DAILY MCALLISTER Justicifation of Admission Dx: Justifications for Admission: Justification of Admission Dx: N/A ALEXANDRIA WALTER MD October 31, 2021 11:12
[2021-10-31] MEDS ORDERED: HEPARIN for SUB-Q USE 5,000 UNIT/ML VIAL. SQ SCH (14:00)
[2021-10-31 14:02] VITALS: BP 137/64
--- NOTE | 2021-10-31 16:14 | PDOC2 ---
CONSULT Date of Consult Date of Consult DATE: 10/31/21 TIME: 16:09 Reason for Consult Reason for Consult: Chest pain Referring Physician Referring Physician: Dr. Saul Identification/Chief Complaint Chief Complaint Chest pain Source Source: Chart review, Patient History of Present Illness Reason for Visit: The patient is a 50-year-old female who presented to the emergency room with episodes of chest pain overnight. The patient reported some associated nausea but no shortness of breath. Her initial blood pressure was significantly elevated at 206/115. She has a history of hypertension, hyperlipidemia and a possible previous TIA. Overnight her pain resolved. Her troponins have been normal at and 24. An echocardiogram on 02/17/2021 showed an ejection fraction of 55% with mild to moderate left ventricular hypertrophy. Chest x-ray shows no acute findings. The patient is significantly more comfortable this morning. Past Medical History Cardiovascular: HTN, Hyperlipidemia, Other (Possible TIA) Pulmonary: Other CENTRAL NERVOUS SYSTEM: Migraine, Periperal neuropathy, TIA, Vertigo, Other GI: GERD Heme/Onc: No pertinent hx Hepatobiliary: Other Psych: Anxiety, Bipolar Rheumatologic: Other Infectious disease: Other Renal/: UTI Endocrine: Hypothyroidism Past Surgical History Past Surgical History: Cholecystectomy, , Hysterectomy, Other (Right knee surgery) Family History Family History: Hypertension, Hypothyroidism Social History No ALCOHOL: rare Drugs: None Current Problem List Problem List Problems Medical Problems: (1) Chest pain Status: Acute (2) Hypertension Status: Acute Current Medications Current Medications Current Medications Aspirin (Aspirin Chewable) 324 mg 1X ONCE PO Last administered on 10/31/21at 04:08; Start 10/31/21 at 04:15; Stop 10/31/21 at 04:16; Status DC Ondansetron HCl (Zofran) 4 mg 1X ONCE IVP Last administered on 10/31/21at 04:34; Start 10/31/21 at 05:00; Stop 10/31/21 at 05:01; Status DC Sodium Chloride 1,000 ml @ 1,000 mls/hr 1X ONCE IV Last administered on 10/31/21at 04:34; Start 10/31/21 at 05:00; Stop 10/31/21 at 05:59; Status DC Labetalol HCl (Normodyne Iv Push) 10 mg 1X ONCE IVP ; Start 10/31/21 at 05:00; Stop 10/31/21 at 05:01; Status DC Ondansetron HCl (Zofran) 4 mg PRN Q8HRS PRN IVP NAUSEA/VOMITING 1ST CHOICE; Start 10/31/21 at 05:30; Stop 10/31/21 at 09:50; Status DC Fentanyl Citrate (Fentanyl 2ml Vial) 50 mcg PRN Q2HRS PRN IVP SEVERE PAIN 7-10; Start 10/31/21 at 05:30 Ondansetron HCl (Zofran) 4 mg PRN Q6HRS PRN IVP NAUSEA/VOMITING; Start 10/31/21 at 09:30 Al Hydroxide/Mg Hydroxide (Mylanta Plus Xs) 30 ml PRN Q3HRS PRN PO HEARTBURN / GAS; Start 10/31/21 at 09:30 Calcium Carbonate/ Glycine (Tums) 500 mg PRN Q3HRS PRN PO UPSET STOMACH; Start 10/31/21 at 09:30 Zolpidem Tartrate (Ambien) 5 mg PRN QHS PRN PO INSOMNIA, MAY REPEAT IN 1HR; Start 10/31/21 at 09:30 Morphine Sulfate (Morphine Sulfate) 2 mg PRN Q1HR PRN IV PAIN; Start 10/31/21 at 09:30 Acetaminophen/ Hydrocodone Bitart (Lortab 5/325) 1 tab PRN Q4HRS PRN PO MILD PAIN 1-3; Start 10/31/21 at 09:30 Acetaminophen (Tylenol) 650 mg PRN Q6HRS PRN PO Headaches, Temp > 101.5F; Start 10/31/21 at 09:30 Docusate Sodium (Colace) 100 mg BID PRN PO CONSTIPATION; Start 10/31/21 at 09:30 Magnesium Hydroxide (Milk Of Magnesia) 2,400 mg PRN Q12HR PRN PO CONSTIPATION; Start 10/31/21 at 09:30 Heparin Sodium (Porcine) (Heparin Sodium) 5,000 unit Q8HRS SQ ; Start 10/31/21 at 14:00 Nitroglycerin (Nitrostat) 0.4 mg PRN Q5MIN PRN SL CHEST PAIN; Start 10/31/21 at 09:30 Hydralazine HCl (Apresoline Inj) 10 mg PRN Q4HRS PRN IVP ELEVATED BP, SEE COMMENTS; Start 10/31/21 at 09:30 Aspirin (Aspirin Chewable) 81 mg HS PO ; Start 10/31/21 at 21:00 Atorvastatin Calcium (Lipitor) 20 mg HS PO ; Start 10/31/21 at 21:00 Diltiazem HCl (Cardizem 24hr Cd) 180 mg HS PO ; Start 10/31/21 at 21:00 Levothyroxine Sodium (Synthroid) 125 mcg DAILY06 PO ; Start 11/01/21 at 06:00 Ondansetron HCl (Zofran) 4 mg STK-MED ONCE .ROUTE ; Start 10/31/21 at 04:28; Stop 10/31/21 at 15:01; Status DC Active Scripts Active Ondansetron Odt (Ondansetron) 4 Mg Tab.rapdis 4 Mg PO BID PRN Reported Diltiazem 24HR Cd (Diltiazem Hcl) 180 Mg Cap.er.24h 180 Mg PO HS D3 + K2 Dots 1,000 Units Tab (Vitamin D3/Vitamin K2) 1 Each Tab.rapdis 1 Tab PO HS 30 Days Trazodone Hcl 150 Mg Tablet 1 Tab PO QHS 30 Days Children's Aspirin (Aspirin) 81 Mg Tab.chew 1 Tab PO HS 30 Days Atorvastatin Calcium 20 Mg Tablet 20 Mg PO HS Diphenhydramine Hcl 50 Mg Capsule 1 Cap PO QHS Euthyrox (Levothyroxine Sodium) 125 Mcg Tablet 125 Mcg PO DAILY06 Allergies Allergies: Coded Allergies: acetaminophen (Verified Adverse Reaction, Mild, Nausea and Vomiting, 10/31/21) abdominal cramping hydrocodone (Verified Adverse Reaction, Mild, Nausea and Vomiting, 10/31/21) abdominal cramping meperidine (Verified Adverse Reaction, Mild, Anxiety, 10/31/21) Pt. states it "makes her feel like she's crawling out of her skin" ROS General: YES: Fatigue Cardiovascular: yes Chest Pain Gastrointestinal: Yes Nausea Physical Exam General: No acute distress HEENT: Atraumatic Lungs: Clear to auscultation Heart: Regular rate Abdomen: Normal bowel sounds Vitals VITALS Vital Signs Date Time Temp Pulse Resp B/P (MAP) Pulse Ox O2 Delivery O2 Flow Rate FiO2 10/31/21 14:02 98.0 76 17 137/64 (88) 98 98.0 10/31/21 07:35 Room Air Labs Labs Laboratory Tests Test 10/31/21 03:56 10/31/21 06:22 10/31/21 06:39 10/31/21 09:42 White Blood Count 9.9 x10^3/uL (4.0-11.0) Red Blood Count 4.79 x10^6/uL (3.50-5.40) Hemoglobin 12.6 g/dL (12.0-15.5) Hematocrit 38.5 % (36.0-47.0) Mean Corpuscular Volume 80 fL (79-100) Mean Corpuscular Hemoglobin 26 pg (25-35) Mean Corpuscular Hemoglobin Concent 33 g/dL (31-37) Red Cell Distribution Width 15.5 % (11.5-14.5) Platelet Count 352 x10^3/uL (140-400) Neutrophils (%) (Auto) 55 % (31-73) Lymphocytes (%) (Auto) 35 % (24-48) Monocytes (%) (Auto) 6 % (0-9) Eosinophils (%) (Auto) 3 % (0-3) Basophils (%) (Auto) 2 % (0-3) Neutrophils # (Auto) 5.4 x10^3/uL (1.8-7.7) Lymphocytes # (Auto) 3.5 x10^3/uL (1.0-4.8) Monocytes # (Auto) 0.6 x10^3/uL (0.0-1.1) Eosinophils # (Auto) 0.3 x10^3/uL (0.0-0.7) Basophils # (Auto) 0.1 x10^3/uL (0.0-0.2) Prothrombin Time 12.4 SEC (11.7-14.0) Prothromb Time International Ratio 1.0 (0.8-1.1) Activated Partial Thromboplast Time 29 SEC (24-38) D-Dimer (Zaira) 0.37 ug/mlFEU (0.00-0.50) Sodium Level 141 mmol/L (136-145) Potassium Level 3.6 mmol/L (3.5-5.1) Chloride Level 102 mmol/L (98-107) Carbon Dioxide Level 29 mmol/L (21-32) Anion Gap 10 (6-14) Blood Urea Nitrogen 13 mg/dL (7-20) Creatinine 0.9 mg/dL (0.6-1.0) Estimated GFR (Cockcroft-Gault) 66.5 BUN/Creatinine Ratio 14 (6-20) Glucose Level 127 mg/dL (70-99) Calcium Level 9.4 mg/dL (8.5-10.1) Magnesium Level 2.4 mg/dL (1.8-2.4) Total Bilirubin 0.2 mg/dL (0.2-1.0) Aspartate Amino Transf (AST/SGOT) 21 U/L (15-37) Alanine Aminotransferase (ALT/SGPT) 46 U/L (14-59) Alkaline Phosphatase 82 U/L (46-116) Troponin I High Sensitivity 28 ng/L (4-50) 21 ng/L (4-50) 24 ng/L (4-50) BQ-Cdf-O-Type Natriuretic Peptide 12 pg/mL (0-124) Total Protein 8.8 g/dL (6.4-8.2) Albumin 3.8 g/dL (3.4-5.0) Albumin/Globulin Ratio 0.8 (1.0-1.7) Lipase 359 U/L (73-393) Urine Collection Type Unknown Urine Color (Auto) Colorless Urine Turbidity Clear Urine pH (Auto) 6.0 (<5.0-8.0) Urine Specific [place] 1.010 (1.000-1.030) Urine Protein (Auto) Negative mg/dL (Negative) Urine Glucose (Auto)(UA) Negative mg/dL (Negative) Urine Ketones (Auto) Negative mg/dL (Negative) Urine Blood (Auto) Negative (Negative) Urine Nitrite Negative (Negative) Urine Bilirubin (Auto) Negative (Negative) Urine Urobilinogen (Auto) Normal mg/dL (Normal) Urine Leukocyte Esterase (Auto) Negative (Negative) Urine RBC 0 /HPF (0-2) Urine WBC 0 /HPF (0-4) Urine Squamous Epithelial Cells Mod /LPF Urine Bacteria Few /HPF (0-FEW) Triglycerides Level 120 mg/dL (0-150) Cholesterol Level 114 mg/dL (0-200) LDL Cholesterol, Calculated 54 mg/dL (0-100) VLDL Cholesterol, Calculated 24 mg/dL (0-40) Non-HDL Cholesterol Calculated 78 mg/dL (0-129) HDL Cholesterol 36 mg/dL (40-60) Cholesterol/HDL Ratio 3.2 Thyroid Stimulating Hormone (TSH) 4.270 uIU/mL (0.358-3.74) Laboratory Tests Test 10/31/21 03:56 10/31/21 06:22 10/31/21 06:39 10/31/21 09:42 White Blood Count 9.9 x10^3/uL (4.0-11.0) Red Blood Count 4.79 x10^6/uL (3.50-5.40) Hemoglobin 12.6 g/dL (12.0-15.5) Hematocrit 38.5 % (36.0-47.0) Mean Corpuscular Volume 80 fL (79-100) Mean Corpuscular Hemoglobin 26 pg (25-35) Mean Corpuscular Hemoglobin Concent 33 g/dL (31-37) Red Cell Distribution Width 15.5 % (11.5-14.5) Platelet Count 352 x10^3/uL (140-400) Neutrophils (%) (Auto) 55 % (31-73) Lymphocytes (%) (Auto) 35 % (24-48) Monocytes (%) (Auto) 6 % (0-9) Eosinophils (%) (Auto) 3 % (0-3) Basophils (%) (Auto) 2 % (0-3) Neutrophils # (Auto) 5.4 x10^3/uL (1.8-7.7) Lymphocytes # (Auto) 3.5 x10^3/uL (1.0-4.8) Monocytes # (Auto) 0.6 x10^3/uL (0.0-1.1) Eosinophils # (Auto) 0.3 x10^3/uL (0.0-0.7) Basophils # (Auto) 0.1 x10^3/uL (0.0-0.2) Prothrombin Time 12.4 SEC (11.7-14.0) Prothromb Time International Ratio 1.0 (0.8-1.1) Activated Partial Thromboplast Time 29 SEC (24-38) D-Dimer (Zaira) 0.37 ug/mlFEU (0.00-0.50) Sodium Level 141 mmol/L (136-145) Potassium Level 3.6 mmol/L (3.5-5.1) Chloride Level 102 mmol/L (98-107) Carbon Dioxide Level 29 mmol/L (21-32) Anion Gap 10 (6-14) Blood Urea Nitrogen 13 mg/dL (7-20) Creatinine 0.9 mg/dL (0.6-1.0) Estimated GFR (Cockcroft-Gault) 66.5 BUN/Creatinine Ratio 14 (6-20) Glucose Level 127 mg/dL (70-99) Calcium Level 9.4 mg/dL (8.5-10.1) Magnesium Level 2.4 mg/dL (1.8-2.4) Total Bilirubin 0.2 mg/dL (0.2-1.0) Aspartate Amino Transf (AST/SGOT) 21 U/L (15-37) Alanine Aminotransferase (ALT/SGPT) 46 U/L (14-59) Alkaline Phosphatase 82 U/L (46-116) Troponin I High Sensitivity 28 ng/L (4-50) 21 ng/L (4-50) 24 ng/L (4-50) TX-Xij-M-Type Natriuretic Peptide 12 pg/mL (0-124) Total Protein 8.8 g/dL (6.4-8.2) Albumin 3.8 g/dL (3.4-5.0) Albumin/Globulin Ratio 0.8 (1.0-1.7) Lipase 359 U/L (73-393) Urine Collection Type Unknown Urine Color (Auto) Colorless Urine Turbidity Clear Urine pH (Auto) 6.0 (<5.0-8.0) Urine Specific [place] 1.010 (1.000-1.030) Urine Protein (Auto) Negative mg/dL (Negative) Urine Glucose (Auto)(UA) Negative mg/dL (Negative) Urine Ketones (Auto) Negative mg/dL (Negative) Urine Blood (Auto) Negative (Negative) Urine Nitrite Negative (Negative) Urine Bilirubin (Auto) Negative (Negative) Urine Urobilinogen (Auto) Normal mg/dL (Normal) Urine Leukocyte Esterase (Auto) Negative (Negative) Urine RBC 0 /HPF (0-2) Urine WBC 0 /HPF (0-4) Urine Squamous Epithelial Cells Mod /LPF Urine Bacteria Few /HPF (0-FEW) Triglycerides Level 120 mg/dL (0-150) Cholesterol Level 114 mg/dL (0-200) LDL Cholesterol, Calculated 54 mg/dL (0-100) VLDL Cholesterol, Calculated 24 mg/dL (0-40) Non-HDL Cholesterol Calculated 78 mg/dL (0-129) HDL Cholesterol 36 mg/dL (40-60) Cholesterol/HDL Ratio 3.2 Thyroid Stimulating Hormone (TSH) 4.270 uIU/mL (0.358-3.74) Images Images Chest x-ray with no acute changes. Assessment/Plan Assessment/Plan 1. Chest pain. Pain has resolved. Patient's EKG shows no acute ischemic changes. Echocardiogram from last January showed normal LV systolic function. Troponins are normal x3. Significantly elevated blood pressure upon arrival which may be the etiology of her discomfort. She is continue on medications including hypertensive medications. Will increase activity. Possibly home later today. Office follow-up. 2. Accelerated hypertension. Admission blood pressure of 206/115. Patient blood pressure is under better control now with resumption of medications. 3. Hyperlipidemia. Cholesterol panel shows a triglycerides of 120/LDL of 54 an d HDL low at 36. We will continue present treatments and monitor. 4. History of a possible previous TIA. Patient is alert and oriented today. 5. Hypothyroidism. Morning TSH of 4.27. PRECIOUS TORRES MD October 31, 2021 16:14
[2021-10-31 16:28] VITALS: BP 126/56
--- NOTE | 2021-10-31 17:45 | NUR ---
Discharge Note: LUIS BOSS Discharge instructions and discharge home medications reviewed with Patient and a copy given. All questions have been answered and understanding verbalized. The following instructions and handouts were given: diet, CP, HTN, tachycardia, follow up with primary and cardiology. Discontinued lines and drains: IV removed, no lines present at DC. Patient discharged to wheelchair to her husbands private vehicle.
[2021-10-31] MEDS ORDERED: ASPIRIN CHEWABLE 81 MG TABLET. PO SCH (21:00)
[2021-10-31] MEDS ORDERED: ATORVASTATIN CALCIUM 20 MG TABLET PO SCH (21:00)
[2021-11-01] MEDS ORDERED: LEVOTHYROXINE 125 MCG TABLET PO SCH (06:00)
== END 2021-10-31 17:15 | disposition home or self-care (01) | DRG 305 ==
LOC: ER 03:47 → OBSVTOIN 05:25 → 6 SOUTH 05:25
PROVIDERS: ADMIT Family Medicine; ATTEND Family Medicine
DX: I16.0 Hypertensive urgency (principal); Z68.41 Body mass index [BMI] 40.0-44.9, adult; R07.89 Other chest pain; Z88.8 Allergy status to other drugs, medicaments and biological substances; E03.9 Hypothyroidism, unspecified; E78.00 Pure hypercholesterolemia, unspecified; E78.5 Hyperlipidemia, unspecified; F31.9 Bipolar disorder, unspecified; I11.9 Hypertensive heart disease without heart failure; Z82.49 Family history of ischemic heart disease and other diseases of the circulatory system; Z86.73 Personal history of transient ischemic attack (TIA), and cerebral infarction without residual deficits; Z90.710 Acquired absence of both cervix and uterus; F41.9 Anxiety disorder, unspecified; G43.909 Migraine, unspecified, not intractable, without status migrainosus; G62.9 Polyneuropathy, unspecified; K21.9 Gastro-esophageal reflux disease without esophagitis; Z90.721 Acquired absence of ovaries, unilateral; Z87.440 Personal history of urinary (tract) infections; E66.01 Morbid (severe) obesity due to excess calories
CPT/HCPCS: 36415; 71045; 80053; 80061; 81001; 83690; 83735; 83880; 84443; 84484; 85025; 85379; 85610; 85730; 93005; 96361; 96374; G0378; G0379; J2405; J7030; 99285-25